=== PATIENT | male | born 1985 | race Caucasian/White ===

== ENCOUNTER → 2017-06-25 | Outpatient (CLI) | payer OTHER ==
--- NOTE | 2017-06-26 15:00 | ECHOCARDIOGRAM REPORT ---
*NOTICE TO RECEIVING [employer] This information is strictly Confidential and protected under [place] law. [place] law prohibits you from making any further disclosure of this information unless further disclosure is expressly permitted by the written consent of the person to whom it pertains or is authorized by law. A general authorization for the release of medical or other information is not sufficient for this purpose. Hospital accepts no responsibility if the information is made available to any other person, INCLUDING THE PATIENT. Interpretation Summary * Name: FARZANEH BARTLETT Study Date: 06/25/2017 01:41 PM BP: 156/82 mmHg * Patient Location: [facility] HR: 72 * : 1985 (M/d/yyyy) Gender: Male Height: 71 in * Age: 31 yrs Ethnicity: CA Weight: 175 lb * Ordering Physician: Bala Cabrera * Referring Physician: Bala Cabrera * Performed By: Marybel Ventura RCS * * Reason For Study: AORTIC INSUFFICIENCY * BSA: 2.0 m2 * -- Conclusions -- * 1. Normal LV size and wall thickness. * 2. Normal LV systolic function. LVEF 55-60%. No regional wall motion abnormalities. * 3. Normal RV size and function. * 4. Suspected bicuspid aortic valve with trace aortic rergurgitation. No . No aortic aneursym. * 5. Trace MR, TR. * 6. Normal estimated PA and RA pressures. * 7. No prior studies for comparison. Procedure Details * A complete two-dimensional transthoracic echocardiogram was performed (2D, M-mode, Doppler and color flow Doppler). * Patient refused Definity. Left Ventricle * The left ventricle is grossly normal size. * There is borderline concentric left ventricular hypertrophy. * Ejection Fraction = 55-60%. * No regional wall motion abnormalities noted. Right Ventricle * The right ventricle is grossly normal size. * The right ventricular systolic function is normal as assessed by tricuspid annular plane systolic excursion (TAPSE) (normal >1.5 cm). Atria * The left atrial size is normal. * Right atrial size is normal. * No ASD detected; PFO is not assessed. Mitral Valve * The mitral valve is grossly normal. * There is no mitral valve stenosis. * There is trace mitral regurgitation. Tricuspid Valve * The tricuspid valve is not well visualized, but is grossly normal. * There is no tricuspid stenosis. * There is trace tricuspid regurgitation. Aortic Valve * The aortic valve opens well. * A bicuspid aortic valve cannot be excluded. * No hemodynamically significant valvular aortic stenosis. * Trace aortic regurgitation. Pulmonic Valve * The pulmonary valve is inadequately visualized, but the Doppler data is adequate for interpretation. * Pulmonic stenosis is absent. * There is no significant pulmonary regurgitation. Great Vessels * The aortic root and proximal ascending aorta are normal sized. Pericardium/Pleural * There is no pericardial effusion. Great Vessels * There is no evidence of pulmonary hypertension. The PA systolic pressure is less than 36 mmHg. * Normal inferior vena cava size and collapsability with sniff indicates a normal right atrial pressure of 3 mmHg MMode 2D Measurements and Calculations IVSd 0.95 cm IVSs 1.3 cm LVIDd 4.8 cm LVIDs 3.6 cm LVPWd 1.2 cm LVPWs 1.3 cm IVS/LVPW 0.82 FS 26.1 % EDV(Teich) 108.8 ml ESV(Teich) 53.2 ml EF(Teich) 51.1 % EDV(cubed) 112.3 ml ESV(cubed) 45.3 ml EF(cubed) 59.6 % % IVS thick 41.6 % % LVPW thick 10.3 % LV mass(C)d 184.1 grams LV mass(C)dI 92.4 grams/m\S\2 LV mass(C)s 159.9 grams LV mass(C)sI 80.3 grams/m\S\2 SV(Teich) 55.6 ml SI(Teich) 27.9 ml/m\S\2 SV(cubed) 66.9 ml SI(cubed) 33.6 ml/m\S\2 Ao root diam 3.0 cm Ao root area 7.0 cm\S\2 ACS 2.3 cm LA dimension 3.0 cm LA/Ao 1.0 LVOT diam 2.4 cm LVOT area 4.4 cm\S\2 Doppler Measurements and Calculations MV E max stormy 143.4 cm/sec MV A max stormy 93.8 cm/sec MV E/A 1.5 MV P1/2t max stormy 154.2 cm/sec MV P1/2t 84.7 msec MVA(P1/2t) 2.6 cm\S\2 MV dec slope 533.1 cm/sec\S\2 MV dec time 0.22 sec Ao V2 max 138.9 cm/sec Ao max PG 7.7 mmHg Ao max PG (full) 3.8 mmHg MELLISSA(V,A) 3.1 cm\S\2 MELLISSA(V,D) 3.1 cm\S\2 AI max stormy 292.5 cm/sec AI max PG 34.5 mmHg AI dec slope 124.5 cm/sec\S\2 AI P1/2t 687.9 msec LV V1 max PG 3.9 mmHg LV V1 max 99.2 cm/sec PA V2 max 97.7 cm/sec PA max PG 3.8 mmHg TR max stormy 279.0 cm/sec
== END | disposition home or self-care (01) ==
LOC: C.CPL 13:34
PROVIDERS: ATTEND Internal Medicine Cardiovascular Disease
DX: Q23.1 Congenital insufficiency of aortic valve (principal); I36.1 Nonrheumatic tricuspid (valve) insufficiency

== ENCOUNTER 2017-10-14 10:55 | Emergency (ER) | payer OTHER ==
[~2017-10-14] VITALS: Ht 180.3 cm; Wt 77.2 kg
[2017-10-14 11:07] VITALS: TEMP 36.4; Ht 180.3 cm; Wt 77.2 kg
[2017-10-14] MEDS ORDERED: SODIUM CHLORIDE 0.9% 1000ML 2,000 ML IV STA (11:43)
[2017-10-14 11:53] LABS: BASO % 0.4 %; BASO ABS # 0.02 K/uL (0-0.2); EOS % 0.2 %; EOS ABS # 0.01 K/uL (0-0.5); HEMATOCRIT 48.1 % (42-52); HEMOGLOBIN 17.9 g/dL (14.0-18.0); IG# 0.01 K/uL (0.00-0.02); LYMPH % 15.9 %; LYMPH ABS # 0.76 K/uL (1.2-3.4); MEAN CELL VOLUME 89.7 fL (80-100); MEAN CORPUSCULAR HEMOGLOBIN 33.4 pg (25-34); MEAN CORPUSCULAR HGB CONC 37.2 g/dl (32-36); MEAN PLATELET VOLUME 9.6 fL (7.4-10.4); MONO % 24.8 %; MONO ABS # 1.19 K/uL (0.11-0.59); NEUT % 58.5 %; PLATELET COUNT 184 K/uL (130-400); RED CELL DISTRIBUTION WIDTH SD 38.8 fL (36.4-46.3); WHITE BLOOD COUNT 4.79 K/uL (4.8-10.8)
[2017-10-14 12:02] LABS: ALBUMIN 3.7 gm/dl (3.4-5.0); ALT/SGPT 70 U/L (12-78); BLOOD UREA NITROGEN 6 mg/dl (7-18); CALCIUM 8.4 mg/dl (8.5-10.1); CARBON DIOXIDE 29 mmol/L (21-32); CREATININE 0.97 mg/dl (0.60-1.40); GLUCOSE 96 mg/dl (70-99); POTASSIUM 3.3 mmol/L (3.5-5.1); SODIUM 133 mmol/L (136-145)
--- NOTE | 2017-10-14 12:03 | EMERGENCY ROOM VISIT NOTE ---
History Report prepared by [place]: Sanaz Magaña Under the Supervision of: Dr. Jonatan Cheatham M.D. First contact with patient: 11:36 Chief Complaint: DIZZY Stated Complaint: DIZZYNESS, VOMITING Nursing Triage Summary: pt ill all day yesterday, last pm became dizzy at top of stairs and fell down stairs approx 5-10 feet striking head pos loc pt no longer dizzy pt is cardiac pt of Dr Cabrera pt wants evaluated for fall pt no longer n/v/d History of Present Illness The patient is a 31 year old male who presents to the Emergency Room with complaints of an episode of a fall occurring INVESTIGATOR. The patient states that he has been feeling sick for the past 2-3 days and has mostly been laying in bed. He states that he spent the majority of the day yesterday in bed and did not eat or drink much. He got up around 1am to go downstairs to get a drink. He states that he was feeling dizzy when he stood up and this caused him to fall down the stairs. He hit his head on the railing. The patient is complaining of facial pain including pain around his nose and mouth. He states that his face feels "sore." He rates his pain as a 4/10 in severity. He did hit his head and thinks he may have lost consciousness for a few seconds. He denies any other injury from his fall. He denies any pain or injury to the extremities. He denies urinary symptoms or abdominal pain. He has not taken anything for his pain. Source of History: patient Onset: INVESTIGATOR Position: other (face) Symptom Intensity: 4/10 Quality: other (sore) Timing: other (episode) Associated Symptoms: + LOC, No abdominal pain, No urinary symptoms Note: Pt reports dizziness. Review of Systems See HPI for pertinent positives & negatives. A total of 10 systems reviewed and were otherwise negative. Past Medical & Surgical Medical Problems: (1) Congenital insufficiency of aortic valve (2) Nonrheumatic tricuspid (valve) insufficiency Family History No pertinent history stated. Social History Smoking Status: Never Smoker Alcohol Use: heavy Housing Status: lives alone Occupation Status: employed Current/Historical Medications No Active Prescriptions or Reported Meds Allergies Coded Allergies: No Known Allergies (Unverified , 10/14/17) Physical Exam Vital Signs Date Time Temp Pulse Resp B/P (MAP) Pulse Ox O2 Delivery O2 Flow Rate FiO2 10/14/17 14:45 92 16 112/74 95 10/14/17 12:32 96 10/14/17 12:31 98 16 121/81 96 Room Air 10/14/17 11:07 36.4 108 20 127/78 97 Room Air Physical Exam GENERAL: Patient is well appearing and in minimal distress. EYES: No scleral icterus, unremarkable pupils. ENT: Mucous membranes moist, no nasal congestion. Older abrasion of left upper lip and left lower lip. Left nose with bilateral bruising below the eyes and across the bridge of the nose. Tender to palpation over the bridge of the nose. NECK: No masses appreciated, no meningismus, trachea is midline. RESPIRATORY: No dyspnea. Clear to auscultation and equal bilaterally. No wheeze , no rhonchi. CARDIOVASCULAR: Regular rate and rhythm. No murmurs, rubs, gallops appreciated. GASTROINTESTINAL: Abdomen soft, nontender, no peritonitis. Bowel sounds positive. No masses appreciated. BACK: No midline tenderness, no CVA tenderness EXTREMITIES: Normal motion all extremities, no cyanosis, no edema. Old bruising of the right thigh. NEUROLOGIC: Alert and oriented, no acute motor or sensory deficits, no focal weakness, cranial nerves grossly intact. SKIN: No rash, no jaundice, no diaphoresis. Medical Decision & Procedures ER Provider Diagnostic Interpretation: Radiology results and stated below per my review and radiologist interpretation: FACIAL BONES-MXILLOFAC WITHOUT CLINICAL HISTORY: 31 years-old Male presenting with syncope, facial injuries. TECHNIQUE: Multidetector CT of the face was performed without the use of intravenous contrast. IV contrast: None. A dose lowering technique was used consistent with the principles of ALARA (as low as reasonably achievable). COMPARISON: None. CT DOSE (mGy.cm): The estimated cumulative dose is 833.24 mGy.cm. FINDINGS: Search Marketing Specialist topogram: Unremarkable. Mild mucosal thickening in ethmoid air cells and the bilateral maxillary sinuses. Rightward deviation of the bony nasal septum, which may demonstrate an old fracture deformity (series 5 image 318). No acute fracture. Temporal mandibular joints and mandible intact. Teeth intact. Skull base intact. Bilateral soft tissue filling defects in the external auditory canals likely cerumen. Upper cervical spine normal. Mild infiltration of the soft tissues of the nose. No other evidence of soft tissue injury. Limited intracranial evaluation within normal limits. Please see separately dictated CT of the head. IMPRESSION: 1. Minimal superficial soft tissue contusion of the nasal region. 2. No acute osseous injury of the face. 3. Findings suggest old fracture of the bony nasal septum. Electronically signed by: Julio Abbott M.D. 10/14/2017 12:31 PM Dictated Date/Time: 10/14/2017 12:28 PM HEAD WITHOUT CONTRAST (CT) CT DOSE: HISTORY: Trauma. Mental status change. syncope head injury TECHNIQUE: Multiaxial CT images of the head were performed without the use of intravenous contrast. A dose lowering technique was utilized adhering to the principles of ALARA. Comparison: None. Findings: The paranasal sinuses and mastoid air cells are clear. The calvarium and skull base are intact. The ventricles and sulci are within normal limits. There is no mass, hematoma, midline shift, or acute infarct. Impression: No acute intracranial abnormality. The above report was generated using voice recognition software. It may contain grammatical, syntax or spelling errors. Electronically signed by: Jose Luis Abdullahi M.D. 10/14/2017 12:26 PM Dictated Date/Time: 10/14/2017 12:24 PM Laboratory Results 10/14/17 11:25 Red Blood Count 5.36, Mean Corpuscular Volume 89.7, Mean Corpuscular Hemoglobin 33.4, Mean Corpuscular Hemoglobin Concent 37.2, Mean Platelet Volume 9.6, Neutrophils (%) (Auto) 58.5, Lymphocytes (%) (Auto) 15.9, Monocytes (%) (Auto) 24.8, Eosinophils (%) (Auto) 0.2, Basophils (%) (Auto) 0.4, Neutrophils # (Auto ) 2.80, Lymphocytes # (Auto) 0.76, Monocytes # (Auto) 1.19, Eosinophils # (Auto ) 0.01, Basophils # (Auto) 0.02 10/14/17 11:25 Test 10/14/17 11:20 10/14/17 11:25 Urine Color DK YELLOW Urine Appearance CLEAR (CLEAR) Urine pH 5.5 (4.5-7.5) Urine Specific [place] 1.017 (1.000-1.030) Urine Protein NEG (NEG) Urine Glucose (UA) NEG (NEG) Urine Ketones NEG (NEG) Urine Occult Blood NEG (NEG) Urine Nitrite NEG (NEG) Urine Bilirubin NEG (NEG) Urine Urobilinogen NEG (NEG) Urine Leukocyte Esterase NEG (NEG) Urine WBC (Auto) 1-5 /hpf (0-5) Urine RBC (Auto) 0-4 /hpf (0-4) Urine Hyaline Casts (Auto) 1-5 /lpf (0-5) Urine Epithelial Cells (Auto) 5-10 /lpf (0-5) Urine Bacteria (Auto) NEG (NEG) White Blood Count 4.79 K/uL (4.8-10.8) Red Blood Count 5.36 M/uL (4.7-6.1) Hemoglobin 17.9 g/dL (14.0-18.0) Hematocrit 48.1 % (42-52) Mean Corpuscular Volume 89.7 fL (80-100) Mean Corpuscular Hemoglobin 33.4 pg (25-34) Mean Corpuscular Hemoglobin Concent 37.2 g/dl (32-36) Platelet Count 184 K/uL (130-400) Mean Platelet Volume 9.6 fL (7.4-10.4) Neutrophils (%) (Auto) 58.5 % Lymphocytes (%) (Auto) 15.9 % Monocytes (%) (Auto) 24.8 % Eosinophils (%) (Auto) 0.2 % Basophils (%) (Auto) 0.4 % Neutrophils # (Auto) 2.80 K/uL (1.4-6.5) Lymphocytes # (Auto) 0.76 K/uL (1.2-3.4) Monocytes # (Auto) 1.19 K/uL (0.11-0.59) Eosinophils # (Auto) 0.01 K/uL (0-0.5) Basophils # (Auto) 0.02 K/uL (0-0.2) RDW Standard Deviation 38.8 fL (36.4-46.3) RDW Coefficient of Variation 12.0 % (11.5-14.5) Immature Granulocyte % (Auto) 0.2 % Immature Granulocyte # (Auto) 0.01 K/uL (0.00-0.02) Anion Gap 7.0 mmol/L (3-11) Est Creatinine Clear Calc Drug Dose 119.6 ml/min Estimated GFR () 121.8 Estimated GFR (Non- 105.1 BUN/Creatinine Ratio 5.9 (10-20) Calcium Level 8.4 mg/dl (8.5-10.1) Total Bilirubin 0.7 mg/dl (0.2-1) Aspartate Amino Transf (AST/SGOT) 121 U/L (15-37) Alanine Aminotransferase (ALT/SGPT) 70 U/L (12-78) Alkaline Phosphatase 138 U/L (45-117) Total Creatine Kinase 352 U/L (39-308) Troponin I < 0.015 ng/ml (0-0.045) Total Protein 8.1 gm/dl (6.4-8.2) Albumin 3.7 gm/dl (3.4-5.0) Globulin 4.4 gm/dl (2.5-4.0) Albumin/Globulin Ratio 0.8 (0.9-2) Laboratory results as reviewed by me. Medications Administered Medications (Trade) Dose Ordered Sig/Adeline Route Start Time Stop Time Status Last Admin Dose Admin Sodium Chloride 2,000 ml @ 999 mls/hr Q2H1M STAT IV 10/14/17 11:43 10/14/17 13:43 DC 10/14/17 12:12 999 MLS/HR ECG Per My Interpretation Indication: syncope Rate (beats per minute): 91 Rhythm: normal sinus Findings: no acute ischemic change, no ectopy, other (QTC 450; WA 120) ED Course 1136: The patient was evaluated in room A10. A complete history and physical exam was performed. 1143: NSS 2000 ml @ 999 mls/hr IV 1327: The patient's mother pulled me aside and informed me that the patient is a heavy alcohol drinker. She knows that he was drinking heavily 3 days ago but is unsure if he drank alcohol last night. I reassessed the patient and he is doing well and currently drinking a soda. 1346: I reassessed the patient at this time. He is feeling better and resting comfortably. He again denies drinking alcohol last night. I discussed the results and treatment plan with the patient. I answered all pertaining questions that he had. He expressed understanding and verbalized agreement. The patient will be discharged home. Medical Decision Differential: Vaso-vagal, Intracerebral Event, Neurologic, Infectious, Volume Deficiency, Hypoglycemia, Electrolyte Abnormality, Cardiac Source, Toxicologic, amongst other pathologies entertained. 31 yr old male who notes syncopal episode yesterday after getting up quickly following vomiting throughout the day and poor oral intake for a few days. Abrasions left face with moderate bruising bilateral below eyes. With syncope and bruising felt imaging necessary which was negative. He is a bit evasive on answering questions but denies excessive Etoh usage. Mother however towards DC notes concern overdose alcohol. I re-questioned patient he still denies he has an issue. Not malnutrition and mother notes he eats well thus will hold on thiamine for now given he is adamant not frequent etoh use. He has no further vomiting, is looking better and is in no distress. Syncope likely was hypovolemic in nature. Discussed we are always here if he feels he needs help. Reviewed mild ast elevation which could be etoh vs just vomiting though I made clear to him my concerns. Head Trauma GCS Score: 15 Medication Reconcilliation Current Medication List: was personally reviewed by me Blood Pressure Screening Patient's blood pressure: Normal blood pressure Impression Primary Impression: Vomiting Additional Impressions: Dehydration Syncope Head injury, closed Elevated AST (SGOT) Abrasion of face Nasal contusion Scribe Attestation The scribe's documentation has been prepared under my direction and personally reviewed by me in its entirety. I confirm that the note above accurately reflects all work, treatment, procedures, and medical decision making performed by me. Departure Information Dispostion Home / Self-Care Prescriptions No Active Prescriptions or Reported Meds Referrals Rai Hager D.O. (PCP) Forms HOME CARE DOCUMENTATION FORM, IMPORTANT VISIT INFORMATION Patient Instructions My [facility] Additional Instructions Please follow up with your Primary Care Provider for further evaluation and discuss having repeat lab testing. Return if worsening vomiting, abdominal pain, fevers, chest pain, further passing out or other concerns. Keep well hydrated. If you drink regularly discuss this with your family and loved ones. Given your labs you should avoid all alcohol until cleared by your primary provider. Problem Qualifiers
[2017-10-14 12:07] LABS: ALKALINE PHOSPHATASE 138 U/L (45-117); AST/SGOT 121 U/L (15-37); TOTAL PROTEIN 8.1 gm/dl (6.4-8.2)
--- NOTE | 2017-10-14 12:27 | DIAGNOSTIC IMAGING REPORT ---
HEAD WITHOUT CONTRAST (CT) CT DOSE: HISTORY: Trauma. Mental status change. syncope head injury TECHNIQUE: Multiaxial CT images of the head were performed without the use of intravenous contrast. A dose lowering technique was utilized adhering to the principles of ALARA. Comparison: None. Findings: The paranasal sinuses and mastoid air cells are clear. The calvarium and skull base are intact. The ventricles and sulci are within normal limits. There is no mass, hematoma, midline shift, or acute infarct. Impression: No acute intracranial abnormality. The above report was generated using voice recognition software. It may contain grammatical, syntax or spelling errors. Electronically signed by: Jose Luis Abdullahi M.D. 10/14/2017 12:26 PM Dictated Date/Time: 10/14/2017 12:24 PM
--- NOTE | 2017-10-14 12:32 | DIAGNOSTIC IMAGING REPORT ---
FACIAL BONES-MXILLOFAC WITHOUT CLINICAL HISTORY: 31 years-old Male presenting with syncope, facial injuries. TECHNIQUE: Multidetector CT of the face was performed without the use of intravenous contrast. IV contrast: None. A dose lowering technique was used consistent with the principles of ALARA (as low as reasonably achievable). COMPARISON: None. CT DOSE (mGy.cm): The estimated cumulative dose is 833.24 mGy.cm. FINDINGS: Knowledge Analyst topogram: Unremarkable. Mild mucosal thickening in ethmoid air cells and the bilateral maxillary sinuses. Rightward deviation of the bony nasal septum, which may demonstrate an old fracture deformity (series 5 image 318). No acute fracture. Temporal mandibular joints and mandible intact. Teeth intact. Skull base intact. Bilateral soft tissue filling defects in the external auditory canals likely cerumen. Upper cervical spine normal. Mild infiltration of the soft tissues of the nose. No other evidence of soft tissue injury. Limited intracranial evaluation within normal limits. Please see separately dictated CT of the head. IMPRESSION: 1. Minimal superficial soft tissue contusion of the nasal region. 2. No acute osseous injury of the face. 3. Findings suggest old fracture of the bony nasal septum. Electronically signed by: Julio Abbott M.D. 10/14/2017 12:31 PM Dictated Date/Time: 10/14/2017 12:28 PM
[2017-10-14 14:45] VITALS: BP 112/74; PULSE 92; O2SAT 95
== END 2017-10-14 14:45 | disposition home or self-care (01) ==
LOC: C.EDB 10:57 → C.EDA 14:45
DX: E86.0 Dehydration (principal); R11.10 Vomiting, unspecified; S09.90XA Unspecified injury of head, initial encounter; S00.81XA Abrasion of other part of head, initial encounter; S00.33XA Contusion of nose, initial encounter; R55 Syncope and collapse; W10.9XXA Fall (on) (from) unspecified stairs and steps, initial encounter

== ENCOUNTER 2018-09-15 09:07 | Inpatient (IN) ==
[2018-09-15] MEDS ORDERED: SODIUM CHLORIDE 0.9% 1000ML 1,000 ML IV ONE ×2 (09:48→11:04)
[2018-09-15 10:00] LABS: Basophils # (auto) 0.03 K/uL (0-0.2); Basophils % (auto) 0.2 %; Eosinophils # (auto) 0.09 K/uL (0-0.5); Eosinophils % (auto) 0.5 %; Hematocrit (blood only) 37.1 % (42-52); Hemoglobin 13.3 g/dL (14.0-18.0); Immature Granulocytes # (auto) 0.03 K/uL (0.00-0.02); Immature Granulocytes % (auto) 0.2 %; Lymphocytes % (auto) 4.6 %; Mean Corpuscular Hgb Conc 35.8 g/dL (32-36); Mean Corpuscular Volume 95.4 fL (80-100); Mean Platelet Volume 9.7 fL (7.4-10.4); Monocytes # (auto) 2.25 K/uL (0.11-0.59); Neutrophils % (auto) 81.5 %; Platelet Count 240 K/uL (130-400); RDW Coefficient of Variation 14.2 % (11.5-14.5); RDW Standard Deviation 48.6 fL (36.4-46.3); Red Blood Count 3.89 M/uL (4.7-6.1)
[2018-09-15 10:11] LABS: INR 2.5 (0.9-1.1)
[2018-09-15 10:19] LABS: Alanine Aminotransferase 142 U/L (12-78); Albumin Level 2.4 gm/dl (3.4-5.0); Alkaline Phosphatase 238 U/L (45-117); Aspartate Aminotransferase 376 U/L (15-37); BUN Creatinine Ratio 5.7 (10-20); Bilirubin Direct 11.3 mg/dl (0-0.2); Blood Urea Nitrogen 8 mg/dl (7-18); Calcium 7.8 mg/dl (8.5-10.1); Carbon Dioxide 29 mmol/L (21-32); Chloride 85 mmol/L (98-107); Est GFR (African American) 81.1; Glucose 87 mg/dl (70-99); Magnesium 1.6 mg/dl (1.8-2.4); Potassium 3.5 mmol/L (3.5-5.1); Sodium 123 mmol/L (136-145)
[2018-09-15 10:45] LABS: Hepatitis B Surface Antigen Neg (Neg)
[2018-09-15 10:48] LABS: Appearance Urine Cloudy (Clear); Color Urine Brown
[2018-09-15 10:50] LABS: Specific Gravity Urine 1.036 (1.000-1.060)
[2018-09-15 10:52] LABS: Bacteria Urine 2+ (Negative); Hyaline Casts Urine >30 /lpf (0-5); Mucus Urine Present (None Prsent)
[2018-09-15 10:55] LABS: RBC Urine 0-4 /hpf (0-4); WBC Urine >30 /hpf (0-5)
[2018-09-15] MEDS ORDERED: OPTIRAY 320 125ml IV PRN (11:03)
[2018-09-15] MEDS ORDERED: cefTRIAXone SODIUM 1,000 MG/50 ML BAG IV STA (11:04)
[2018-09-15 11:08] LABS: Hepatitis C IgG 13Yrs+Old_Rflx Neg (Neg)
--- NOTE | 2018-09-15 11:20 | CT Scan Report ---
CT angio chest PE protocol CT DOSE: 1313.69 mGy.cm HISTORY: 32 years-old Male with PE. Acute shortness of breath with generalized abdominal pain and j aundice TECHNIQUE: Multiple CTA images of the chest were obtained after the intravenous administration of 215 ml Optiray 320. Coronal and sagittal MIPS were obtained from the axial data set and were submitted for review. All measurements were obtained according to NASCET criteria. A dose lowering technique w as utilized adhering to the principles of ALARA. Initial scan demonstrated suboptimal contrast bolus within the pulmonary arterial tree. The study was then repeated. COMPARISON: None. FINDINGS: CTA: Mild multichamber cardiac enlargement without pericardial effusion. Thoracic aorta demonstrates no an eurysm or dissection. Patency of the imaged great vessels. The pulmonary arterial tree is opacified t o the level of the lobar branches. The segmental and subsegmental branches are not well opacified. No focal filling defects identified to suggest pulmonary thromboembolic disease. Study is degraded by r espiratory motion artifact. CT CHEST: Mildly heterogeneous appearance of the thyroid. No adenopathy by CT size criteria. There is no pneumo thorax or pleural effusion. Mild dependent subsegmental bibasilar atelectasis. Central airways appear patent. Severe hepatic steatosis. Upper abdominal ascites noted. Small sliding-type hiatal hernia. Mild gener alized body wall edema. Bones appear to be intact. Remote appearing deformity about the posterior lef t fourth rib. No suspicious lytic or blastic bony lesions. IMPRESSION: 1. No acute intrathoracic abnormality. 2. Suboptimal evaluation of the pulmonary arterial tree as above without evidence of central pulmonar y thromboembolic disease. 3. No adenopathy or airspace consolidation typical for pneumonia. 4. Severe hepatic steatosis with upper abdominal ascites. 5. Small sliding-type hiatal hernia. The above report was generated using voice recognition software. It may contain grammatical, syntax o r spelling errors. Electronically signed by: Gerson Chowdary M.D. 09/15/2018 11:18 AM
--- NOTE | 2018-09-15 11:20 | CT Scan Report ---
CT abd pelvis IV con only CLINICAL HISTORY: 32 years-old Male presenting with abd pain, jaundice, scrotal swelling. TECHNIQUE: Multidetector CT of the abdomen and pelvis was performed after the administration of intra venous contrast. IV contrast: 120 mL of Optiray 320. One or more dose lowering techniques were used c onsistent with the principles of ALARA (as low as reasonably achievable), including automatic exposur e control, mA or kV adjustment to individual patient size, and/or use of iterative reconstruction. COMPARISON: None. CT DOSE (mGy.cm): The estimated cumulative dose is unavailable. FINDINGS: Pain Management Nurse topogram: Unremarkable. Lung bases: Mildly enlarged heart size. No pericardial or pleural effusion. Bandlike opacities in the lung bases greater on the right, likely atelectasis. Pulmonary arteries are enlarged relative to adj acent bronchi. Liver: Normal morphology. Density consistent with severe hepatic steatosis. No focal lesion. Patent h epatic vasculature. Biliary: No intrahepatic or extrahepatic biliary ductal dilatation. Normal gallbladder. Pancreas: Normal. Spleen: Normal. Adrenal glands: Normal. Kidneys and ureters: Normal. No hydronephrosis. Bladder: Incompletely evaluated secondary to underdistention. Pelvic organs: Prostate and seminal vesicles normal. Bowel: The appendix is not visualized. No bowel obstruction. Mild diffuse wall thickening of the smal l and large bowel. Peritoneal cavity: Large volume simple appearing ascites area and no layering hyperdensity within the ascites. No free intraperitoneal gas. Lymph nodes: No enlarged lymph nodes in the abdomen or pelvis. Vasculature: Aorta and IVC patent and normal in caliber. Mesenteric varices noted. Abdominal wall: Recanalization of the para umbilical vein with prominent collateral veins in the ante rior abdominal wall. Anasarca. Fat and small bowel containing periumbilical hernia. Ascitic fluid als o tracks into the bilateral inguinal canals greater on the left. Musculoskeletal: Normal. IMPRESSION: 1. Volume overload with large volume ascites, anasarca, and pulmonary vascular congestion. 2. Severe hepatic steatosis. 3. Portal hypertension. 4. Bibasilar atelectasis greater on the right. Electronically signed by: Julio Abbott M.D. 09/15/2018 11:19 AM
--- NOTE | 2018-09-15 12:34 | Ultrasound Report ---
US scrotum/testicle CLINICAL HISTORY: 32 years-old Male presenting with scrotal edema, testicular pain. TECHNIQUE: Real-time grayscale and color and spectral Doppler ultrasound imaging of the scrotum was p erformed. COMPARISON: None. FINDINGS: Right testis: Normal echogenicity and echotexture. Testis measures 4.1 x 2.6 x 2.6 cm. Normal color D oppler flow and arterial and venous waveforms in the testicular parenchyma. Subcentimeter epididymal head cyst(s), either epididymal cyst or spermatocele. No hydrocele. No varicocele. Left testis: Normal echogenicity and echotexture. Testis measures 4.0 x 2.5 x 2 point cm. Normal colo r Doppler flow and arterial and venous waveforms in the testicular parenchyma. Epididymal head normal . Large hydrocele present (calculated volume 80 mL). No varicocele. Symmetric perfusion of the testes. Other: Marked scrotal wall edema diffusely. No focal fluid collection to suggest abscess. IMPRESSION: 1. No evidence of testicular torsion. 2. Nonspecific marked scrotal wall edema. 3. Large left hydrocele. Electronically signed by: Julio Abbott M.D. 09/15/2018 12:33 PM
--- NOTE | 2018-09-15 13:31 | History & Physical Report ---
Date of Service September 15, 2018 Assessment & Plan (1) Acute hepatitis: This is a 32 year old male who has a significant pmh of congenital coarctation of aorta s/p repair and repair of R inguinal hernia who presents to [facility] ED secondary to jaundice and scrotal swelling x 7-10 days. In ED patient was noted to have significant jaundice, ascites, anasarca. LFTs were as follows AST 376, ALT 142, alk phos 238, T bili 17 Lactic acid 4.1 Per current CMS guidelines patient met SIRS criteria with tachycardia, elevated wbc, tachypnea Lactate was 4.1, repeat 4 hrs later was 3.1 s/p IVF x 2 L He received broad spectrum antibiotic with 1g Rocephin *records reviewed from ER visit from 09/2017 s/p fall. In this note Dr. Pineda mentions history of heavy ETOH use that was reported by mother, but denied by patient. Also at that time he had elevation in his AST 121 and Alk Phos 138, Sodium 133. -admit to med/surg telemetry -consult GI, spoke with RODERICK Dolan -Hepatitis work up per GI -Diagnostic and therapeutic paracentesis send fluid for culture and analysis -will continue rocephin, but increase to 2g daily with extra 1 g this evening until SBP, UTI, or bacteremia is ruled out -being folic acid, thiamine supplementation -follow LFTS, PT/INR, Lactic acid (2) Anasarca: (3) Hyperbilirubinemia: (4) Leukocytosis: -plan as above, he is afebrile -no known infectious source at this time however will continue to cover with rocephin for /GI as possible etiology -await urine, blood and peritoneal fluid culture -follow cbc (5) Hyponatremia: -likely in setting of large volume ascites, chronic -s/p 2L IVF -check serum/urine osm, urine na -follow bmp (6) Hypomagnesemia: -replace with 2g mag sulfate -repeat mag in a.m. (7) Elevated INR (international normalized ratio): -INR 2.5, likely in setting of liver disease -10mg mephyton given per GI -repeat INR (8) Lactic acidosis: -Lactic acid 4.1, repeat was 3 at 13:30 -likely in setting of hepatic failure but infection not entirely ruled out -await urine, blood, peritoneal cultures -continue IV antibiotic -follow lactate level -will hold on further IVF given significant volume overload (9) Prolonged Q-T interval on ECG: -avoid QT prolonging medications (10) DVT prophylaxis: -SCDS Disposition: to be determined Follow up: Pt will need established with PCP upon discharge Patient was seen in collaboration with Dr. Prasad, please see addendum Starting 09/16/28 patient will be followed by Dr. Orantes History of Present Illness Chief Complaint: Jaundice and scrotal edema x 7-10 days. Primary Care Provider: NO PCP This is a 32 year old male who has a significant pmh of congenital coarctation of aorta s/p repair and repair of R inguinal hernia who presents to [facility] ED secondary to jaundice and scrotal swelling x 7-10 days. Patient states approx 10 days ago he noted increased swelling to scrotum, reminded him of when he had a hernia. Occassional testicular pain with swelling but no noted mass or lumps. Occasional abdominal pain, last was 1 week ago, comes and goes, diffuse , last seconds to minutes. Yesterday he was at work when co worker told him he was yellow and he should be evaluated. He has not had any change in weight, but has noticed increased abdominal distension. Denies recent f/c/s, dizziness, lightheaded, chest pain, sob, hemoptysis, cough, n/v/d, dysuria, hematuria, increased urgency/freq, melena. He denies IVDA and significant ETOH use. Drinks 2-3 x per week and drinks 3-4 reds apple dariel. No FH of liver disease or malignancy. No recent endemic travel. Allergies Allergy/AdvReac Type Severity Reaction Status Date / Time No Known Allergies Allergy Unverified 09/15/18 10:28 Home Medications Home Medications Medication Instructions Recorded Confirmed Type No Known Home Medications 09/15/18 09/15/18 History Past Med/Surg History Medical History Congenital insufficiency of aortic valve (Chronic) Nonrheumatic tricuspid (valve) insufficiency (Chronic) Surgical History History of repair of coarctation of aorta History of inguinal hernia repair Family History Father HTN (hypertension) Mother No significant past medical history Social History marital status: Single Current Living Situation: Alone current occupational status: employed Feels Safe at Home: Yes Smoking Status: Never smoker Hx Alcohol Use: Yes (3 beers two to three times per week) Alcohol Intake Frequency: a few times a week Alcohol Intake Frequency Comment: 2-3 x a week ( drinks 3-4 reds apple dariel) Hx Substance Use: No Beliefs That Will Affect Care: None Preferred Language: Azeri Communication Ability: Effective Review of Systems All systems reviewed & are unremarkable except as noted in HPI & below Physical Exam 2 Vital Signs (Past 24 Hours): Last Vital Signs Temp 37.2 C 09/15/18 09:09 Pulse 113 H 09/15/18 13:24 Resp 31 H 09/15/18 13:24 BP 124/79 09/15/18 13:24 Pulse Ox 94 09/15/18 13:24 Physical Exam: Gen: Tall, M, lying in bed, NAD, pleasant, conversing easily, flat affect Head: Normocephalic, Atraumatic Eyes: Sclera icteric, no conjunctival injection, PERRLA, EOMI ENT: Gross hearing intact, normal pharynx, mucous membranes dry with beefy red tongue Neck: supple, no adenopathy, +hepatojugular reflux, no bruit, Resp: Clear to auscultation b/l, no wheeze, rales, rhonchi. Normal insp/exp effort, no accessory muscle use CV: Tachycardic rate, regular rhythm, 1/6 ANSON noted RUSB, no rub, gallop, or ectopy Abd: +BS x 4, +protuberant abdomen, +distended with ascities, fluid wave, caput medusa, +periumbilical hernia noted, firm, nontender Musculoskeletal: moves extremities active rom x 4, strength intact, good floor person strength Extremities: B/L +1 pedal and pre tibial edema bilaterally, negative homans Skin: warm, moist, + petechial rash on b/l lower ext, negative turgor, cap refill < 2sec Neuro: Alert and oriented x 3, speech normal, good mood/affect, cran nerve 2-12 intact grossly : + scrotal edema, b/l hydrocele, no mass noted Results & Data Laboratory Results Short CBC 09/15/18 09/15/18 Range/Units 09:35 09:35 WBC 17.30 H (4.8-10.8) K/uL Hgb 13.3 L (14.0-18.0) g/dL Hct 37.1 L (42-52) % Plt Count 240 (130-400) K/uL Sodium 123 L (136-145) mmol/L BMP 09/15/18 09:35 Sodium 123 L Potassium 3.5 Chloride 85 L Carbon Dioxide 29 BUN 8 Creatinine 1.35 Glucose 87 Calcium 7.8 L Cardiac Enzymes 09/15/18 Range/Units 09:30 Troponin I < 0.015 (0-0.045) ng/ml Liver Function 09/15/18 Range/Units 09:35 Total Bilirubin 17.0 H (0.2-1) mg/dl Direct Bilirubin 11.3 H (0-0.2) mg/dl AST 376 H (15-37) U/L ALT 142 H (12-78) U/L Alkaline Phosphatase 238 H (45-117) U/L Albumin 2.4 L (3.4-5.0) gm/dl Urine 09/15/18 Range/Units 09:35 Urine Color Brown Urine Appearance Cloudy H (Clear) Urine pH Not Reportable Ur Specific [place] 1.036 (1.000-1.060) Urine Protein (Negative) Urine Glucose (UA) (Negative) Diagnostic Findings Scrotum U/S: IMPRESSION: 1. No evidence of testicular torsion. 2. Nonspecific marked scrotal wall edema. 3. Large left hydrocele. Chest CTA: IMPRESSION: 1. No acute intrathoracic abnormality. 2. Suboptimal evaluation of the pulmonary arterial tree as above without evidence of central pulmonary thromboembolic disease. 3. No adenopathy or airspace consolidation typical for pneumonia. 4. Severe hepatic steatosis with upper abdominal ascites. 5. Small sliding-type hiatal hernia. Abd/Pelvis CT: IMPRESSION: 1. Volume overload with large volume ascites, anasarca, and pulmonary vascular congestion. 2. Severe hepatic steatosis. 3. Portal hypertension. 4. Bibasilar atelectasis greater on the right. ECG Rate (beats per minute): 105 Rhythm: sinus tachycardia Findings: + T-wave inversion (anterior leads) and + prolonged QT (510ms) Code Status & VTE Plan Code Status Full Code VTE Prophylaxis Plan VTE Prophylaxis will be ordered: Yes Reason for no VTE drug order: Contraindicated Supervising Physician Co-Signing Physician Notes Patient is 32 yr male who presented with worsening jaundice, abdominal, B/L Leg and scrotal swelling since 10 days duration. He admits to drinking alcohol 2-3 times in a week. Denies any abdominal pain, fever, IV drug use, Possible of STDs. Last Alcohol drink was yesterday. On exam he is Icteric, moderately built , No distress, oriented, Lungs CTA, Abd distended, +Fluid wave, non tender, B/L LE edema, Petechiae, Faint murmur, Sinus Tachycardia. Labs showed increased WBC , elevated Coags and LFTs, Hyponatremic, hypochloremic, lactic acidosis, hypomagnesemia, UA suggestive of UTI. Imaging studies suggestive of severe hepatic steatosis, ascites, small hiatal hernia, anasarca, pulmonary vascular congestion and findings suggestive of portal HTN. Patient is thought to have Possible Acute Alocholic Hepatitis, R/O infectious Causes, SBP. S/P paracentesis , results pending. Volume overload status--Anasarca, Hypontaremia, Hypochloremia and Hypomagnesemia. Started on Ceftriaxone, Prednisone and Albumin. May need diuretics if respiratory status worsens. Replace magnesium. Lactic acidosis likely due to hepatic failure or possible sepsis from UTI/SBP. Supplement thiamine, folic acid, Monitor for alcohol withdrawal. Consider starting neurotin protocol if noticed withdrawal symptoms. GI Input appreciated. EKG showed T wave inversiion in anterior leads. Initial Troponin negative, Denies chest pain. Trend Troponin, repeat EKG in AM. I personally reviewed the record. Patient is interviewed and examined at bedside. Patient's care is coordinated with Salma Knight PA-C. Please refer to the documentation above for details of patient's presentation and for discussion of other issues. _ (1) Leukocytosis Leukocytosis type: unspecified Qualified Code(s): D72.829 - Elevated white blood cell count, unspecified
[2018-09-15] MEDS ORDERED: MAGNESIUM SULFATE 1GM / D5W BAG IV ONE (13:58)
[2018-09-15] MEDS ORDERED: PHYTONADIONE 10 MG in SODIUM CHLORIDE 0.9% 50 ML IV ONE (14:00)
[2018-09-15] MEDS ORDERED: ALBUMIN HUMAN 25% 12.5 GM/50 ML VIAL IV ONE (14:08)
[2018-09-15 14:14] LABS: Ferritin 1652.2 ng/ml (8-388)
--- NOTE | 2018-09-15 14:40 | Gastrointestinal Consultation ---
Date of Consultation September 15, 2018 Assessment & Plan (1) Jaundice: (2) Ascites: (3) Edema: (4) Elevated LFTs: Pt is a 32 y/o male presented w jaundice, ascites, scrotal and leg edema. Noted to have elevated LFTs and CT evidence of severe hepatic steatosis, meseteric varices, pulmonary hypertension and vascular congestion. Denies hx of autoimmune liver disease in the family, no risk factor for viral hepatitis. Does admit to ETOH use 6-7 beers, 2-3 a week. Suspect alcoholic hepatitis. MELD 35, Maddrey Discriminant Score 72 - Monitor PT/INR, Cr, LFTs daily - Obtain serologies to r/o autoimmune, hereditary liver diseases, acute viral hepatitis - U/S paracentesis w cell ct, fluid albumin, fluid protein, culture. Albumin 25 % 50g IV. He has been started on rocephin epirically; can continue if tap cannot be done today. - Vit K 10mg IV x1 dose - Prednisolone 40mg PO for suspected alcoholic hepatitis. - Defer diuretics for now given electrolyte derrangement and increasing Cr from baseline. - Fluid restriction 2L a day, 2g Na diet - ETOH cessation; avoid hepatotoxic meds - Electrolyte correction per primary team. - Will follow along closely Attg add: I interviewed and examined pt, reviewed chart and labs, agree with plans as above. Pt reports 1 week h/o increased pedal edema, increased abd girth, scrotal edema; he reports one day h/o jaundice. He denies abd pain, fever, n/v, bleeding, confusion. He denies risk fx viral hep; he does not use any meds/herbals/supplements. He does report regular alcohol intake- he initially reportes 3-4 beers 2-3 x a week, and then stated that he drank 6-7 beers 2-3 x a week a few moments later. He denies APAP use. On exam, he is withdrawn and anxious but comfortable and completely lucid. He is markedly jaundiced. He has marked hepatomegaly, abd distention with fluid wave, prom veins on abd, no tremor or asterixis. Labs show increased creat and WBC, marked jaundice, increased INR. Imaging shows hepatic steatosis. Likely alcoholic liver disease, ddx includes AIH or Ray's. He has high DF / MELD, vol overload, and increased creat. Will check serologies for AIH, viral hep, Ray's; begin prednisolone and follow labs; give albumin and follow creat. History of Present Illness Reason for Consultation: Jaundice, Ascites. Requesting Physician: Dr. Kai Prasad Attending Physician: Dr. Eduardo Bullock History of Present Illness Pt is a 32 y/o male with hx of coarctation of aorta during infancy s/p repair, hx of inguinal hernia s/p repair who presented to ED w c/o scrotal edema and jaundice. He's also noticed his abdomen and legs have been swelling for about 1 week. Denies any fever, chills, recent illness. No CP, SOB. No abd pain, bowel habit changes or rectal bleeding. Upon evaluation noted to have elevated WBC 17K , mild anemia, INR 2.5. Several electrolyte derangements including hyponatremia , hypocalcemia, hypomagnesemia. LFTs are also up: Tbili 17, AST 376, ALT 146, AP 238. Lipase 173. CT Abd/pelvis w contrast showed signs of severe hepatic steatosis, large volume ascites, anasarca and pulmonary congestive, pulmonary HTN. Hepatic vasculatures patent, biliary dilation, no gallbladder disease. Pt denies any current home med or herbal supplements, APAP uses. Denies hx of tobacco uses. ETOH intake about 6-7 beers, 2-3 nights a week, previously more frequent over a year ago. Denies illicit drugs. Denies tattoos, piercing, family hx of autoimmune diseases. An uncle had pancreatic ca at age 50 yrs old. He works in [employer]. Allergies Allergy/AdvReac Type Severity Reaction Status Date / Time No Known Allergies Allergy Unverified 09/15/18 10:28 Home Medications Home Medications Medication Instructions Recorded Confirmed Type No Known Home Medications 09/15/18 09/15/18 History Patient History Medical History Congenital insufficiency of aortic valve (Chronic) Nonrheumatic tricuspid (valve) insufficiency (Chronic) Surgical History History of repair of coarctation of aorta History of inguinal hernia repair Family History Father HTN (hypertension) Mother No significant past medical history Social History marital status: Single Current Living Situation: Alone current occupational status: employed Feels Safe at Home: Yes Smoking Status: Never smoker Hx Alcohol Use: Yes (3 beers two to three times per week) Alcohol Intake Frequency: a few times a week Alcohol Intake Frequency Comment: 2-3 x a week ( drinks 3-4 reds apple dariel) Hx Substance Use: No Beliefs That Will Affect Care: None Preferred Language: B[place]ian Communication Ability: Effective Review of Systems Constitutional: as per Subjective / HPI Respiratory: no cough and no dyspnea Cardiovascular: + edema; no chest pain and no lightheadedness Gastrointestinal: as per Subjective / HPI, + abdominal pain and + heartburn Integumentary: as per Subjective / HPI Physical Exam 2 Vital Signs (Past 24 Hours): Last Vital Signs Temp 37.2 C 09/15/18 09:09 Pulse 113 H 09/15/18 14:01 Resp 30 H 09/15/18 14:01 BP 112/73 09/15/18 14:00 Pulse Ox 96 09/15/18 14:01 Constitutional: + ill appearing and cooperative Eyes: PERRL sclera icteric ENMT: external ear and nose normal, oropharynx normal Respiratory: normal respiratory effort, lungs clear to auscultation Cardiovascular: RRR, no murmur, no edema Rate/Rhythm: regular rate and regular rhythm Extremities: + pedal edema and + edema Gastrointestinal (Abdomen): normal bowel sounds, soft, nontender, no hepatosplenomegaly Inspection/Auscultation: + abdomen distended Percussion /Palpation: abdomen nontender and no guarding Skin: no rashes, warm and dry + jaundice Neurologic: Motor/Sensory: no asterixis Psychiatric: A+Ox3, euthymic affect Genitourinary: scrotal edema Lymphatic: + lymphedema Results & Data Laboratory Results Laboratory Results - last 48 hr 09/15/18 09/15/18 09/15/18 09:30 09:30 09:35 WBC RBC Hgb Hct MCV MCH MCHC RDW Std Deviation RDW Coeff of [place] Plt Count MPV Immature Gran % (Auto) Neut % (Auto) Lymph % (Auto) [place] % (Auto) Eos % (Auto) Baso % (Auto) Immature Gran # (Auto) Neut # (Auto) Lymph # (Auto) [place] # (Auto) Eos # (Auto) Baso # (Auto) PT INR Sodium Potassium Chloride Carbon Dioxide Anion Gap BUN Creatinine Est Cr Clr Drug Dosing Est GFR ( Amer) Est GFR (Non-Af Amer) BUN/Creatinine Ratio Glucose POC Lactic Acid Micky Lactate Calcium Magnesium Iron 80 TIBC 124 L Ferritin 1652.2 H Total Bilirubin Direct Bilirubin AST ALT Alkaline Phosphatase Troponin I < 0.015 Total Protein Albumin Lipase Urine Color Urine Appearance Urine pH Ur Specific [place] Urine Protein Urine Glucose (UA) Urine Ketones Urine Blood Urine Nitrite Urine Bilirubin Urine Urobilinogen Ur Leukocyte Esterase Urine RBC Urine WBC Ur Epithelial Cells Other Crystals Urine Bacteria Hyaline Casts Granular Casts WBC Casts Urine Mucus Acetaminophen Ethyl Alcohol mg/dL Hep Bs Antigen Neg Hepatitis C Antibody Neg 09/15/18 09/15/18 09/15/18 09:35 09:35 09:35 WBC 17.30 H RBC 3.89 L Hgb 13.3 L Hct 37.1 L MCV 95.4 MCH 34.2 H MCHC 35.8 RDW Std Deviation 48.6 H RDW Coeff of [place] 14.2 Plt Count 240 MPV 9.7 Immature Gran % (Auto) 0.2 Neut % (Auto) 81.5 Lymph % (Auto) 4.6 [place] % (Auto) 13.0 Eos % (Auto) 0.5 Baso % (Auto) 0.2 Immature Gran # (Auto) 0.03 H Neut # (Auto) 14.10 H Lymph # (Auto) 0.80 L [place] # (Auto) 2.25 H Eos # (Auto) 0.09 Baso # (Auto) 0.03 PT 24.0 H INR 2.5 H Sodium Potassium Chloride Carbon Dioxide Anion Gap BUN Creatinine Est Cr Clr Drug Dosing Est GFR ( Amer) Est GFR (Non-Af Amer) BUN/Creatinine Ratio Glucose POC Lactic Acid Micky Lactate Calcium Magnesium Iron TIBC Ferritin Total Bilirubin Direct Bilirubin AST ALT Alkaline Phosphatase Troponin I Total Protein Albumin Lipase Urine Color Urine Appearance Urine pH Ur Specific [place] Urine Protein Urine Glucose (UA) Urine Ketones Urine Blood Urine Nitrite Urine Bilirubin Urine Urobilinogen Ur Leukocyte Esterase Urine RBC Urine WBC Ur Epithelial Cells Other Crystals Urine Bacteria Hyaline Casts Granular Casts WBC Casts Urine Mucus Acetaminophen Cancelled Ethyl Alcohol mg/dL Hep Bs Antigen Hepatitis C Antibody 02/09/15/18 09/15/18 09:35 09:35 09:35 WBC RBC Hgb Hct MCV MCH MCHC RDW Std Deviation RDW Coeff of [place] Plt Count MPV Immature Gran % (Auto) Neut % (Auto) Lymph % (Auto) [place] % (Auto) Eos % (Auto) Baso % (Auto) Immature Gran # (Auto) Neut # (Auto) Lymph # (Auto) [place] # (Auto) Eos # (Auto) Baso # (Auto) PT INR Sodium 123 L Potassium 3.5 Chloride 85 L Carbon Dioxide 29 Anion Gap 9.0 BUN 8 Creatinine 1.35 Est Cr Clr Drug Dosing Not Reportable Est GFR ( Amer) 81.1 Est GFR (Non-Af Amer) 70.0 BUN/Creatinine Ratio 5.7 L Glucose 87 POC Lactic Acid Micky Lactate 4.1 H* Calcium 7.8 L Magnesium 1.6 L Iron TIBC Ferritin Total Bilirubin 17.0 H Direct Bilirubin 11.3 H AST 376 H ALT 142 H Alkaline Phosphatase 238 H Troponin I Total Protein 6.0 L Albumin 2.4 L Lipase 173 Urine Color Brown Urine Appearance Cloudy H Urine pH Not Reportable Ur Specific [place] 1.036 Urine Protein Urine Glucose (UA) Urine Ketones Urine Blood Urine Nitrite Urine Bilirubin Urine Urobilinogen Ur Leukocyte Esterase Urine RBC 0-4 Urine WBC >30 H Ur Epithelial Cells 5-10 H Other Crystals [place] Urine Bacteria 2+ H Hyaline Casts >30 H Granular Casts 1-5 H WBC Casts 1-5 H Urine Mucus Present H Acetaminophen Ethyl Alcohol mg/dL Hep Bs Antigen Hepatitis C Antibody 09/15/18 09/15/18 09/15/18 09:56 10:07 13:30 WBC RBC Hgb Hct MCV MCH MCHC RDW Std Deviation RDW Coeff of [place] Plt Count MPV Immature Gran % (Auto) Neut % (Auto) Lymph % (Auto) [place] % (Auto) Eos % (Auto) Baso % (Auto) Immature Gran # (Auto) Neut # (Auto) Lymph # (Auto) [place] # (Auto) Eos # (Auto) Baso # (Auto) PT INR Sodium Potassium Chloride Carbon Dioxide Anion Gap BUN Creatinine Est Cr Clr Drug Dosing Est GFR ( Amer) Est GFR (Non-Af Amer) BUN/Creatinine Ratio Glucose POC Lactic Acid Micky 4.03 H 3.10 H Lactate Calcium Magnesium Iron TIBC Ferritin Total Bilirubin Direct Bilirubin AST ALT Alkaline Phosphatase Troponin I Total Protein Albumin Lipase Urine Color Urine Appearance Urine pH Ur Specific [place] Urine Protein Urine Glucose (UA) Urine Ketones Urine Blood Urine Nitrite Urine Bilirubin Urine Urobilinogen Ur Leukocyte Esterase Urine RBC Urine WBC Ur Epithelial Cells Other Crystals Urine Bacteria Hyaline Casts Granular Casts WBC Casts Urine Mucus Acetaminophen Ethyl Alcohol mg/dL < 3.0 Hep Bs Antigen Hepatitis C Antibody
[2018-09-15] MEDS: MAGNESIUM SULFATE / D5W 1 GM/100 ML BAG IV SCH ×2 (15:11→15:14)
[2018-09-15] MEDS: ALBUMIN 25% 50 ML IV SCH ×4 (15:51→19:39)
[2018-09-15] MEDS ORDERED: prednisoLONE SYRUP 15 MG/5 ML BTL PO ONE (16:00)
[2018-09-15 16:17] LABS: Appearance Peritoneal Fluid CLEAR; Color Peritoneal Fluid YELLOW; Mononuclear WBC Peritoneal 78.5 %; Polynuclear WBC Peritoneal 21.5 %; RBC Peritoneal Fluid (A) < 3000 /uL; WBC Peritoneal Fluid (A) 109 /ul (0-300)
[2018-09-15] MEDS ORDERED: LORazepam 1 MG TAB PO PRN (16:37)
[2018-09-15] MEDS ORDERED: MAGNESIUM HYDROXIDE SUSP 30 ML UDC PO PRN (16:37)
[2018-09-15] MEDS ORDERED: ALUMINUM/MAGNESIUM SUSP 30 ML UDC PO PRN (16:37)
[2018-09-15] MEDS ORDERED: POLYETHYLENE (MIRALAX) 17 GM PACK PO PRN (16:37)
[2018-09-15] MEDS ORDERED: ONDANSETRON INJ 2 MG/ML 2 ML VIAL IV PRN (16:37)
[2018-09-15] MEDS ORDERED: cefTRIAXone SODIUM 1,000 MG in DEXTROSE 5% 50 ML IV STA (16:51)
--- NOTE | 2018-09-15 17:29 | Ultrasound Report ---
US paracentesis abd w/image CLINICAL HISTORY: 32 years-old Male with ascites. COMPARISON: CT abdomen and pelvis of same day PROCEDURE: The procedure was explained to the patient in the care including the benefits and possible risks/complications. The patient gave verbal understanding and written consent was obtained. A time -out was performed prior to the start of the procedure. The patient was placed on the ultrasound table in the supine position. Using ultrasound guidance, an appropriate procedure site in the right lower abdomen was marked. This area was then prepped and drap ed in the usual sterile fashion. Local anesthesia was achieved within 1% lidocaine. An 8-[place] cente sis catheter was then inserted. Approximately 4.0 liters of yellowish fluid was removed and 1 L was s ent to the lab for analysis. The catheter was removed and external pressure was held to achieve hemostasis. A sterile dressing was applied to the procedure site. The patient tolerated the procedure well without immediate complicati ons. IMPRESSION: Successful ultrasound-guided paracentesis with removal of 4.0 L ascitic fluid The above report was generated using voice recognition software. It may contain grammatical, syntax o r spelling errors. Electronically signed by: Gerson Chowdary M.D. 09/15/2018 5:27 PM
[2018-09-15 17:47] LABS: Aspartate Aminotransferase 315 U/L (15-37)
[2018-09-15 17:48] LABS: Magnesium 1.9 mg/dl (1.8-2.4)
[2018-09-15] MEDS: FOLIC ACID 1 MG TAB PO SCH (17:49)
[2018-09-15] MEDS: THIAMINE HCL 100 MG TAB PO SCH (17:49)
[2018-09-15 17:58] LABS: Alanine Aminotransferase 114 U/L (12-78); Albumin Globulin Ratio 0.7 (0.9-2); Albumin Level 2.1 gm/dl (3.4-5.0); Alkaline Phosphatase 185 U/L (45-117); BUN Creatinine Ratio 5.5 (10-20); Bilirubin,Total 15.1 mg/dl (0.2-1); Blood Urea Nitrogen 7 mg/dl (7-18); Calcium 7.1 mg/dl (8.5-10.1); Carbon Dioxide 24 mmol/L (21-32); Chloride 88 mmol/L (98-107); Creatinine Clr Calc Pharmacy 91.4 ml/min; Est GFR (African American) 91.6; Est GFR (Non-African American) 79.1; Globulin 3.1 gm/dl (2.5-4.0); Glucose 97 mg/dl (70-99); Sodium 122 mmol/L (136-145); Total Protein 5.2 gm/dl (6.4-8.2); Troponin I 0.019 ng/ml (0-0.045)
[2018-09-16 06:49] LABS: Hematocrit (blood only) 36.4 % (42-52); Hemoglobin 12.9 g/dL (14.0-18.0); Immature Granulocytes # (auto) 0.03 K/uL (0.00-0.02); Immature Granulocytes % (auto) 0.3 %; Lymphocytes # (auto) 0.44 K/uL (1.2-3.4); Lymphocytes % (auto) 4.4 %; Mean Corpuscular Hgb Conc 35.4 g/dL (32-36); Mean Corpuscular Volume 96.3 fL (80-100); Mean Platelet Volume 9.8 fL (7.4-10.4); Monocytes % (auto) 7.1 %; Neutrophils # (auto) 8.73 K/uL (1.4-6.5); Neutrophils % (auto) 88.2 %; Platelet Count 157 K/uL (130-400); RDW Coefficient of Variation 14.5 % (11.5-14.5); RDW Standard Deviation 51.1 fL (36.4-46.3); Red Blood Count 3.78 M/uL (4.7-6.1)
[2018-09-16 06:57] LABS: Prothrombin Time 19.9 Seconds (9.0-12.0)
[2018-09-16] MEDS: FOLIC ACID 1 MG TAB PO SCH (07:58)
[2018-09-16] MEDS: THIAMINE HCL 100 MG TAB PO SCH (07:58)
[2018-09-16] MEDS: prednisoLONE SYRUP 15 MG/5 ML BTL PO SCH (07:58)
[2018-09-16] MEDS: cefTRIAXone SODIUM 2,000 MG in DEXTROSE 5% 50 ML IV SCH (09:17)
[2018-09-16] MEDS ORDERED: PHYTONADIONE 10 MG in SODIUM CHLORIDE 0.9% 50 ML IV ONE (09:45)
[2018-09-16 09:46] LABS: Albumin Level 2.8 gm/dl (3.4-5.0); BUN Creatinine Ratio 6.5 (10-20); Calcium 8.6 mg/dl (8.5-10.1); Creatinine Clr Calc Pharmacy 87.1 ml/min; Est GFR (African American) 86.5; Est GFR (Non-African American) 74.6
[2018-09-16 10:07] LABS: Bilirubin,Total 18.6 mg/dl (0.2-1)
[2018-09-16 10:09] LABS: Globulin 3.5 gm/dl (2.5-4.0); Total Protein 6.3 gm/dl (6.4-8.2)
[2018-09-16 10:10] LABS: Albumin Globulin Ratio 0.8 (0.9-2)
[2018-09-16 10:11] LABS: Potassium 4.2 mmol/L (3.5-5.1)
[2018-09-16] MEDS: ALBUMIN 25% 50 ML IV SCH ×4 (11:19→13:53)
--- NOTE | 2018-09-16 12:00 | Gastroenterology Progress Note ---
Date of Service September 16, 2018 Assessment & Plan (1) Jaundice: (2) Ascites: (3) Edema: (4) Elevated LFTs: Pt is a 32 y/o male presented w jaundice, ascites, scrotal and leg edema. Noted to have elevated LFTs and CT evidence of severe hepatic steatosis, meseteric varices, pulmonary hypertension and vascular congestion. Denies hx of autoimmune liver disease in the family, no risk factor for viral hepatitis. Does admit to ETOH use 6-7 beers, 2-3 a week. Suspect alcoholic hepatitis. MELD 35, Maddrey Discriminant Score 72 - Monitor PT/INR, Cr, LFTs daily - Pending serologies to r/o autoimmune, hereditary liver diseases, acute viral hepatitis - 20 U/S paracentesis w 4L ascites removal. No signs of SBP, awaiting fluid albumin to calculate SAAG. - Repeat another dose of Albumin 25% 50g IV today - Vit K 10mg IV x1 dose - Prednisolone 40mg PO for suspected alcoholic hepatitis. - Defer diuretics for now given electrolyte derrangement and increasing Cr from baseline. - Fluid restriction 2L a day, 2g Na diet - ETOH cessation; avoid hepatotoxic meds - Electrolyte correction per primary team. - Will follow along closely Attg add: I interviewed and examined pt, reviewed chart and labs. Pt s/p tap today; fluid studies showed no evidence of SBP, high SAAG, and low tot prot in peritoneal fluid. He has no complaints. Prednisolone begun yesterday. He is eating with vigorous appetite. He continues to revise upwards his estimate of alcohol intake, although he has not had any evidence of withdrawal. On exam, he has no evidence of confusion; he has incr abd girth and pedal edema. His lunch tray is empty. His labs show rising bili, improved INR s/p vit K, and improved creat. U na 8 Cont recs as above: Prednisolone, nutritinal support with calorie count, follow bilirubin with plans to d/c steroids if bili cont to rise. Albumin again today , close f/u of creat. Defer diuretics given tap and low u NA today, but may begin in the next 1-2 days. Will d/w family extent of disease, prognosis. Subjective No acute events overnight. Pt reports abdomen feels better, denies any N/V. BM this AM w/o rectal bleeding. Yesterday had 4L ascites fluid removed via u/s guided paracentesis. Cell ct w/o signs of SBP Physical Exam 2 Vital Signs (Past 24 Hours): Last Vital Signs Temp 36.9 C 09/16/18 11:42 Pulse 107 H 09/16/18 11:42 Resp 18 09/16/18 11:42 BP 110/74 09/16/18 11:42 Pulse Ox 93 09/16/18 11:42 Constitutional: + ill appearing, + thin, well groomed, cooperative and comfortable Eyes: + scleral abnormality (icteric), PERRL and EOM intact bilaterally ENMT: external ear and nose normal, oropharynx normal Respiratory: normal respiratory effort, lungs clear to auscultation Cardiovascular: RRR, no murmur, no edema Gastrointestinal (Abdomen): Inspection/Auscultation: + abdomen distended (mild ) and normal bowel sounds Percussion/Palpation: abdomen nontender Skin: no rashes, warm and dry + jaundice Neurologic: Motor/Sensory: no asterixis Psychiatric: A+Ox3, euthymic affect Lymphatic: + lymphedema (bilateral LE) Results & Data Laboratory Results Laboratory Results - last 72 hr 09/15/18 09/15/18 09/15/18 09:30 09:30 09:35 WBC RBC Hgb Hct MCV MCH MCHC RDW Std Deviation RDW Coeff of [place] Plt Count MPV Immature Gran % (Auto) Neut % (Auto) Lymph % (Auto) [place] % (Auto) Eos % (Auto) Baso % (Auto) Immature Gran # (Auto) Neut # (Auto) Lymph # (Auto) [place] # (Auto) Eos # (Auto) Baso # (Auto) PT INR Sodium Potassium Chloride Carbon Dioxide Anion Gap BUN Creatinine Est Cr Clr Drug Dosing Est GFR ( Amer) Est GFR (Non-Af Amer) BUN/Creatinine Ratio Glucose Osmolality POC Lactic Acid Micky Lactate Calcium Magnesium Iron 80 TIBC 124 L Ferritin 1652.2 H Total Bilirubin Direct Bilirubin AST ALT Alkaline Phosphatase Troponin I < 0.015 Total Protein Albumin Globulin Albumin/Globulin Ratio Lipase Folate Urine Color Urine Appearance Urine pH Ur Specific [place] Urine Protein Urine Glucose (UA) Urine Ketones Urine Blood Urine Nitrite Urine Bilirubin Urine Urobilinogen Ur Leukocyte Esterase Urine RBC Urine WBC Ur Epithelial Cells Other Crystals Urine Bacteria Hyaline Casts Granular Casts WBC Casts Urine Mucus Urine Osmolality Ur Random Sodium Peritoneal Color Peritoneal Appearance Peritoneal WBC Peritoneal RBC Mononuclear WBCs % Polynuclear WBCs % Peritoneal Tot Protein Acetaminophen Ethyl Alcohol mg/dL Hepatitis A IgM Ab Hep Bs Antigen Neg Hep B Core IgM Ab Hepatitis C Antibody Neg 09/15/18 09/15/18 09/15/18 09:35 09:35 09:35 WBC 17.30 H RBC 3.89 L Hgb 13.3 L Hct 37.1 L MCV 95.4 MCH 34.2 H MCHC 35.8 RDW Std Deviation 48.6 H RDW Coeff of [place] 14.2 Plt Count 240 MPV 9.7 Immature Gran % (Auto) 0.2 Neut % (Auto) 81.5 Lymph % (Auto) 4.6 [place] % (Auto) 13.0 Eos % (Auto) 0.5 Baso % (Auto) 0.2 Immature Gran # (Auto) 0.03 H Neut # (Auto) 14.10 H Lymph # (Auto) 0.80 L [place] # (Auto) 2.25 H Eos # (Auto) 0.09 Baso # (Auto) 0.03 PT INR Sodium Potassium Chloride Carbon Dioxide Anion Gap BUN Creatinine Est Cr Clr Drug Dosing Est GFR ( Amer) Est GFR (Non-Af Amer) BUN/Creatinine Ratio Glucose Osmolality POC Lactic Acid Micky Lactate Calcium Magnesium Iron TIBC Ferritin Total Bilirubin Direct Bilirubin AST ALT Alkaline Phosphatase Troponin I Total Protein Albumin Globulin Albumin/Globulin Ratio Lipase Folate Urine Color Urine Appearance Urine pH Ur Specific [place] Urine Protein Urine Glucose (UA) Urine Ketones Urine Blood Urine Nitrite Urine Bilirubin Urine Urobilinogen Ur Leukocyte Esterase Urine RBC Urine WBC Ur Epithelial Cells Other Crystals Urine Bacteria Hyaline Casts Granular Casts WBC Casts Urine Mucus Urine Osmolality Ur Random Sodium Peritoneal Color Peritoneal Appearance Peritoneal WBC Peritoneal RBC Mononuclear WBCs % Polynuclear WBCs % Peritoneal Tot Protein Acetaminophen Cancelled Ethyl Alcohol mg/dL Hepatitis A IgM Ab NON-REACTIVE Hep Bs Antigen Hep B Core IgM Ab NON-REACTIVE Hepatitis C Antibody 09/15/18 09/15/18 09/15/18 09:35 09:35 09:35 WBC RBC Hgb Hct MCV MCH MCHC RDW Std Deviation RDW Coeff of [place] Plt Count MPV Immature Gran % (Auto) Neut % (Auto) Lymph % (Auto) [place] % (Auto) Eos % (Auto) Baso % (Auto) Immature Gran # (Auto) Neut # (Auto) Lymph # (Auto) [place] # (Auto) Eos # (Auto) Baso # (Auto) PT 24.0 H INR 2.5 H Sodium 123 L Potassium 3.5 Chloride 85 L Carbon Dioxide 29 Anion Gap 9.0 BUN 8 Creatinine 1.35 Est Cr Clr Drug Dosing Not Reportable Est GFR ( Amer) 81.1 Est GFR (Non-Af Amer) 70.0 BUN/Creatinine Ratio 5.7 L Glucose 87 Osmolality POC Lactic Acid Micky Lactate Calcium 7.8 L Magnesium 1.6 L Iron TIBC Ferritin Total Bilirubin 17.0 H Direct Bilirubin 11.3 H AST 376 H ALT 142 H Alkaline Phosphatase 238 H Troponin I Total Protein 6.0 L Albumin 2.4 L Globulin Albumin/Globulin Ratio Lipase 173 Folate Urine Color Brown Urine Appearance Cloudy H Urine pH Not Reportable Ur Specific [place] 1.036 Urine Protein Urine Glucose (UA) Urine Ketones Urine Blood Urine Nitrite Urine Bilirubin Urine Urobilinogen Ur Leukocyte Esterase Urine RBC 0-4 Urine WBC >30 H Ur Epithelial Cells 5-10 H Other Crystals [place] Urine Bacteria 2+ H Hyaline Casts >30 H Granular Casts 1-5 H WBC Casts 1-5 H Urine Mucus Present H Urine Osmolality Ur Random Sodium Peritoneal Color Peritoneal Appearance Peritoneal WBC Peritoneal RBC Mononuclear WBCs % Polynuclear WBCs % Peritoneal Tot Protein Acetaminophen Ethyl Alcohol mg/dL Hepatitis A IgM Ab Hep Bs Antigen Hep B Core IgM Ab Hepatitis C Antibody 09/15/18 09/15/18 09/15/18 09:35 09:56 10:07 WBC RBC Hgb Hct MCV MCH MCHC RDW Std Deviation RDW Coeff of [place] Plt Count MPV Immature Gran % (Auto) Neut % (Auto) Lymph % (Auto) [place] % (Auto) Eos % (Auto) Baso % (Auto) Immature Gran # (Auto) Neut # (Auto) Lymph # (Auto) [place] # (Auto) Eos # (Auto) Baso # (Auto) PT INR Sodium Potassium Chloride Carbon Dioxide Anion Gap BUN Creatinine Est Cr Clr Drug Dosing Est GFR ( Amer) Est GFR (Non-Af Amer) BUN/Creatinine Ratio Glucose Osmolality POC Lactic Acid Micky 4.03 H Lactate 4.1 H* Calcium Magnesium Iron TIBC Ferritin Total Bilirubin Direct Bilirubin AST ALT Alkaline Phosphatase Troponin I Total Protein Albumin Globulin Albumin/Globulin Ratio Lipase Folate Urine Color Urine Appearance Urine pH Ur Specific [place] Urine Protein Urine Glucose (UA) Urine Ketones Urine Blood Urine Nitrite Urine Bilirubin Urine Urobilinogen Ur Leukocyte Esterase Urine RBC Urine WBC Ur Epithelial Cells Other Crystals Urine Bacteria Hyaline Casts Granular Casts WBC Casts Urine Mucus Urine Osmolality Ur Random Sodium Peritoneal Color Peritoneal Appearance Peritoneal WBC Peritoneal RBC Mononuclear WBCs % Polynuclear WBCs % Peritoneal Tot Protein Acetaminophen Ethyl Alcohol mg/dL < 3.0 Hepatitis A IgM Ab Hep Bs Antigen Hep B Core IgM Ab Hepatitis C Antibody 09/15/18 09/15/18 09/15/18 13:30 14:35 14:35 WBC RBC Hgb Hct MCV MCH MCHC RDW Std Deviation RDW Coeff of [place] Plt Count MPV Immature Gran % (Auto) Neut % (Auto) Lymph % (Auto) [place] % (Auto) Eos % (Auto) Baso % (Auto) Immature Gran # (Auto) Neut # (Auto) Lymph # (Auto) [place] # (Auto) Eos # (Auto) Baso # (Auto) PT INR Sodium Potassium Chloride Carbon Dioxide Anion Gap BUN Creatinine Est Cr Clr Drug Dosing Est GFR ( Amer) Est GFR (Non-Af Amer) BUN/Creatinine Ratio Glucose Osmolality POC Lactic Acid Micky 3.10 H Lactate Calcium Magnesium Iron TIBC Ferritin Total Bilirubin Direct Bilirubin AST ALT Alkaline Phosphatase Troponin I Total Protein Albumin Globulin Albumin/Globulin Ratio Lipase Folate Urine Color Urine Appearance Urine pH Ur Specific [place] Urine Protein Urine Glucose (UA) Urine Ketones Urine Blood Urine Nitrite Urine Bilirubin Urine Urobilinogen Ur Leukocyte Esterase Urine RBC Urine WBC Ur Epithelial Cells Other Crystals Urine Bacteria Hyaline Casts Granular Casts WBC Casts Urine Mucus Urine Osmolality Cancelled Ur Random Sodium Cancelled Peritoneal Color Peritoneal Appearance Peritoneal WBC Peritoneal RBC Mononuclear WBCs % Polynuclear WBCs % Peritoneal Tot Protein Acetaminophen Ethyl Alcohol mg/dL Hepatitis A IgM Ab Hep Bs Antigen Hep B Core IgM Ab Hepatitis C Antibody 09/15/18 09/15/18 09/15/18 15:22 15:22 15:29 WBC RBC Hgb Hct MCV MCH MCHC RDW Std Deviation RDW Coeff of [place] Plt Count MPV Immature Gran % (Auto) Neut % (Auto) Lymph % (Auto) [place] % (Auto) Eos % (Auto) Baso % (Auto) Immature Gran # (Auto) Neut # (Auto) Lymph # (Auto) [place] # (Auto) Eos # (Auto) Baso # (Auto) PT INR Sodium Potassium Chloride Carbon Dioxide Anion Gap BUN Creatinine Est Cr Clr Drug Dosing Est GFR ( Amer) Est GFR (Non-Af Amer) BUN/Creatinine Ratio Glucose Osmolality 263 L POC Lactic Acid Micky Lactate Calcium Magnesium Iron TIBC Ferritin Total Bilirubin Direct Bilirubin AST ALT Alkaline Phosphatase Troponin I Total Protein Albumin Globulin Albumin/Globulin Ratio Lipase Folate Urine Color Urine Appearance Urine pH Ur Specific [place] Urine Protein Urine Glucose (UA) Urine Ketones Urine Blood Urine Nitrite Urine Bilirubin Urine Urobilinogen Ur Leukocyte Esterase Urine RBC Urine WBC Ur Epithelial Cells Other Crystals Urine Bacteria Hyaline Casts Granular Casts WBC Casts Urine Mucus Urine Osmolality Ur Random Sodium Peritoneal Color YELLOW Peritoneal Appearance CLEAR Peritoneal WBC 109 Peritoneal RBC < 3000 Mononuclear WBCs % 78.5 Polynuclear WBCs % 21.5 Peritoneal Tot Protein 0.6 Acetaminophen Ethyl Alcohol mg/dL Hepatitis A IgM Ab Hep Bs Antigen Hep B Core IgM Ab Hepatitis C Antibody 09/15/18 09/15/18 09/15/18 17:03 17:03 17:03 WBC RBC Hgb Hct MCV MCH MCHC RDW Std Deviation RDW Coeff of [place] Plt Count MPV Immature Gran % (Auto) Neut % (Auto) Lymph % (Auto) [place] % (Auto) Eos % (Auto) Baso % (Auto) Immature Gran # (Auto) Neut # (Auto) Lymph # (Auto) [place] # (Auto) Eos # (Auto) Baso # (Auto) PT INR Sodium Potassium TNP Chloride 88 L Carbon Dioxide 24 Anion Gap 10.0 BUN 7 Creatinine 1.22 Est Cr Clr Drug Dosing 91.4 Est GFR ( Amer) 91.6 Est GFR (Non-Af Amer) 79.1 BUN/Creatinine Ratio 5.5 L Glucose 97 Osmolality POC Lactic Acid Micky Lactate 4.6 H* Calcium 7.1 L Magnesium 1.9 Iron TIBC Ferritin Total Bilirubin 15.1 H Direct Bilirubin AST 315 H ALT 114 H Alkaline Phosphatase 185 H Troponin I 0.019 Total Protein 5.2 L Albumin 2.1 L Globulin 3.1 Albumin/Globulin Ratio 0.7 L Lipase Folate 2.30 L Urine Color Urine Appearance Urine pH Ur Specific [place] Urine Protein Urine Glucose (UA) Urine Ketones Urine Blood Urine Nitrite Urine Bilirubin Urine Urobilinogen Ur Leukocyte Esterase Urine RBC Urine WBC Ur Epithelial Cells Other Crystals Urine Bacteria Hyaline Casts Granular Casts WBC Casts Urine Mucus Urine Osmolality Ur Random Sodium Peritoneal Color Peritoneal Appearance Peritoneal WBC Peritoneal RBC Mononuclear WBCs % Polynuclear WBCs % Peritoneal Tot Protein Acetaminophen Ethyl Alcohol mg/dL Hepatitis A IgM Ab Hep Bs Antigen Hep B Core IgM Ab Hepatitis C Antibody 09/15/18 09/15/18 09/15/18 21:33 22:00 22:00 WBC RBC Hgb Hct MCV MCH MCHC RDW Std Deviation RDW Coeff of [place] Plt Count MPV Immature Gran % (Auto) Neut % (Auto) Lymph % (Auto) [place] % (Auto) Eos % (Auto) Baso % (Auto) Immature Gran # (Auto) Neut # (Auto) Lymph # (Auto) [place] # (Auto) Eos # (Auto) Baso # (Auto) PT INR Sodium Potassium Chloride Carbon Dioxide Anion Gap BUN Creatinine Est Cr Clr Drug Dosing Est GFR ( Amer) Est GFR (Non-Af Amer) BUN/Creatinine Ratio Glucose Osmolality POC Lactic Acid Micky Lactate 4.0 H* Calcium Magnesium Iron TIBC Ferritin Total Bilirubin Direct Bilirubin AST ALT Alkaline Phosphatase Troponin I Total Protein Albumin Globulin Albumin/Globulin Ratio Lipase Folate Urine Color Urine Appearance Urine pH Ur Specific [place] Urine Protein Urine Glucose (UA) Urine Ketones Urine Blood Urine Nitrite Urine Bilirubin Urine Urobilinogen Ur Leukocyte Esterase Urine RBC Urine WBC Ur Epithelial Cells Other Crystals Urine Bacteria Hyaline Casts Granular Casts WBC Casts Urine Mucus Urine Osmolality 666 Ur Random Sodium 8 Peritoneal Color Peritoneal Appearance Peritoneal WBC Peritoneal RBC Mononuclear WBCs % Polynuclear WBCs % Peritoneal Tot Protein Acetaminophen Ethyl Alcohol mg/dL Hepatitis A IgM Ab Hep Bs Antigen Hep B Core IgM Ab Hepatitis C Antibody 09/16/18 09/16/18 09/16/18 05:57 05:57 06:00 WBC 9.90 RBC 3.78 L Hgb 12.9 L Hct 36.4 L MCV 96.3 MCH 34.1 H MCHC 35.4 RDW Std Deviation 51.1 H RDW Coeff of [place] 14.5 Plt Count 157 MPV 9.8 Immature Gran % (Auto) 0.3 Neut % (Auto) 88.2 Lymph % (Auto) 4.4 [place] % (Auto) 7.1 Eos % (Auto) 0.0 Baso % (Auto) 0.0 Immature Gran # (Auto) 0.03 H Neut # (Auto) 8.73 H Lymph # (Auto) 0.44 L [place] # (Auto) 0.70 H Eos # (Auto) 0.00 Baso # (Auto) 0.00 PT 19.9 H INR 2.0 H Sodium 125 L Potassium 4.2 D Chloride 88 L Carbon Dioxide 28 Anion Gap 9.0 BUN 8 Creatinine 1.28 Est Cr Clr Drug Dosing 87.1 Est GFR ( Amer) 86.5 Est GFR (Non-Af Amer) 74.6 BUN/Creatinine Ratio 6.5 L Glucose 112 H Osmolality POC Lactic Acid Micky Lactate Calcium 8.6 D Magnesium Iron TIBC Ferritin Total Bilirubin 18.6 H Direct Bilirubin AST 305 H ALT 119 H Alkaline Phosphatase 193 H Troponin I Total Protein 6.3 L D Albumin 2.8 L Globulin 3.5 Albumin/Globulin Ratio 0.8 L Lipase Folate Urine Color Urine Appearance Urine pH Ur Specific [place] Urine Protein Urine Glucose (UA) Urine Ketones Urine Blood Urine Nitrite Urine Bilirubin Urine Urobilinogen Ur Leukocyte Esterase Urine RBC Urine WBC Ur Epithelial Cells Other Crystals Urine Bacteria Hyaline Casts Granular Casts WBC Casts Urine Mucus Urine Osmolality Ur Random Sodium Peritoneal Color Peritoneal Appearance Peritoneal WBC Peritoneal RBC Mononuclear WBCs % Polynuclear WBCs % Peritoneal Tot Protein Acetaminophen Ethyl Alcohol mg/dL Hepatitis A IgM Ab Hep Bs Antigen Hep B Core IgM Ab Hepatitis C Antibody
--- NOTE | 2018-09-16 14:45 | Ophthalmology Consultation ---
Date of Consultation September 16, 2018 Assessment & Plan (1) Elevated LFTs: Exam did not reveal Kayser_Fleischer rings. However, the exam was done at the bedside with a portable slit lamp which may limit the ablility to see early or more subtle KF rings. If the diagnosis is still in doubt after discharge I would be happy to re-examine the patient as an out patient. History of Present Illness Reason for Consultation: Patient is a 32 year old man presented in liver failure. Care team requested exam to assess for Ken-Keyonna rings to rule out Ray's disease. Patient reports last eye exam about 6-12 months ago was normal. Attending Physician: Anabela Orantes MD Allergies Allergy/AdvReac Type Severity Reaction Status Date / Time No Known Allergies Allergy Unverified 09/15/18 10:28 Home Medications Home Medications Medication Instructions Recorded Confirmed Type No Known Home Medications 09/15/18 09/15/18 History Patient History Medical History Congenital insufficiency of aortic valve (Chronic) Nonrheumatic tricuspid (valve) insufficiency (Chronic) Surgical History History of repair of coarctation of aorta History of inguinal hernia repair Family History Father HTN (hypertension) Mother No significant past medical history Social History marital status: Single Current Living Situation: Other Current Living Situation Comment: roomates current occupational status: employed Other Information That Helps Us Care for You: No Feels Safe at Home: Yes Safety Concerns: Feels Safe At This Time Smoking Status: Never smoker Hx Alcohol Use: Yes Alcohol type: beer Alcohol Intake Frequency: a few times a week Alcohol Intake Frequency Comment: 2-3 x a week ( drinks 3-4 reds apple dariel) Hx Substance Use: No Beliefs That Will Affect Care: None Communication Ability: Effective Review of Systems Patient denies any ocular symptoms. Physical Exam 2 Vital Signs (Past 24 Hours): Last Vital Signs Temp 36.9 C 09/16/18 11:42 Pulse 107 H 09/16/18 11:42 Resp 18 02/21/19 11:42 BP 110/74 09/16/18 11:42 Pulse Ox 93 09/16/18 11:42 Eyes: Vision: 20/20 OU as measured on a near aciuty card with correction Pupils: PERRL [place]: normal versions Visual parker: full to confrontation Slit lamp (portable): Normal lids, cornea, anterior chamber, iris and lens. Sclera yellow with jaundiced appearance Fundus (undilated): normal optic nerves, macula, retinal vessels, and retinal periphery
--- NOTE | 2018-09-16 16:37 | Hospitalist Progress Note ---
Date of Service September 16, 2018 Assessment & Plan (1) Acute hepatitis: Likely secondary to alcohol abuse LFTs were as follows AST 376, ALT 142, alk phos 238, T bili 17 Lactic acid 4.1-doubt any sepsis He received broad spectrum antibiotic with 1g Rocephin Appreciate GI input and recommendation Diagnostic and therapeutic paracentesis send fluid for culture and analysis Status post 4 L paracentesis Has been started on prednisone for alcoholic hepatitis Continue current antibiotic for possible SBP (2) Anasarca: As above Status post 4 L paracentesis Present on Admission?: Yes (3) Hyperbilirubinemia: Secondary to hepatic steatosis No significant extrahepatic biliary obstruction as per the scan (4) Leukocytosis: -plan as above, he is afebrile -no known infectious source at this time however will continue to cover with rocephin for /GI as possible etiology -await urine, blood and peritoneal fluid culture -Has been on ceftriaxone for possible SBP (5) Hyponatremia: -likely in setting of large volume ascites, chronic -s/p 2L IVF -check serum/urine osm, urine na -follow bmp-sodium level remains low at 125 (6) Hypomagnesemia: -replace with 2g mag sulfate -repeat mag in a.m. -Hypomagnesemia is corrected (7) Elevated INR (international normalized ratio): -INR 2.5, likely in setting of liver disease -10mg mephyton given per GI -repeat INR (8) Lactic acidosis: -Lactic acid 4.1, repeat was 3 at 13:30 -likely in setting of hepatic failure but infection not entirely ruled out -await urine, blood, peritoneal cultures -continue IV antibiotic -follow lactate level -will hold on further IVF given significant volume overload (9) Prolonged Q-T interval on ECG: -avoid QT prolonging medications (10) DVT prophylaxis: -SCDS Disposition: to be determined Follow up: Pt will need established with PCP upon discharge Patient was seen in collaboration with Dr. Prasad, please see addendum Starting 09/16/28 patient will be followed by Dr. Orantes Subjective This is a 32 year old male who has a significant pmh of congenital coarctation of aorta s/p repair and repair of R inguinal hernia who presents to [facility] secondary to jaundice and scrotal swelling x 7-10 days. Noted to have severe hepatic steatosis with abnormal LFTs and moderate ascites. 09/16 Patient was seen and examined in telemetry He remains generally weak but feels a little better Denies any significant pain, fever and no shortness of breath Abdominal distention is improving Constitutional: as per Subjective / HPI Cardiovascular: + edema; no chest pain and no lightheadedness Gastrointestinal: as per Subjective / HPI, + abdominal pain and + heartburn Integumentary: as per Subjective / HPI Physical Exam 2 Vital Signs (Past 24 Hours): Last Vital Signs Temp 37.0 C 09/16/18 15:18 Pulse 114 H 09/16/18 15:18 Resp 20 09/16/18 15:18 BP 123/81 09/16/18 15:18 Pulse Ox 92 09/16/18 15:18 Constitutional: + ill appearing, + thin, well groomed, cooperative and comfortable Eyes: + scleral abnormality (icteric), PERRL and EOM intact bilaterally ENMT: external ear and nose normal, oropharynx normal Neck: trachea midline, no thyromegaly Respiratory: normal respiratory effort; no respiratory distress and no labored breathing Auscultation: + diminished lung sounds; no crackles and no wheezes Cardiovascular: RRR, no murmur, no edema Rate/Rhythm: regular rate and regular rhythm Extremities: + pedal edema and + edema Gastrointestinal (Abdomen): Inspection/Auscultation: + abdomen distended (mild ) and normal bowel sounds Percussion/Palpation: + abdomen tender (Minimally tender) and abdomen soft; no guarding Skin: no rashes, warm and dry + jaundice Neurologic: Motor/Sensory: no asterixis Psychiatric: A+Ox3, euthymic affect Lymphatic: + lymphedema (bilateral LE) Results & Data Laboratory Results Short CBC 09/16/18 Range/Units 05:57 WBC 9.90 (4.8-10.8) K/uL Hgb 12.9 L (14.0-18.0) g/dL Hct 36.4 L (42-52) % Plt Count 157 (130-400) K/uL BMP 09/15/18 09/16/18 17:03 06:00 Sodium 125 L Potassium TNP 4.2 D Chloride 88 L 88 L Carbon Dioxide 24 28 BUN 7 8 Creatinine 1.22 1.28 Glucose 97 112 H Calcium 7.1 L 8.6 D Cardiac Enzymes 09/15/18 Range/Units 17:03 Troponin I 0.019 (0-0.045) ng/ml Liver Function 09/15/18 09/16/18 Range/Units 17:03 06:00 Total Bilirubin 15.1 H 18.6 H (0.2-1) mg/dl AST 315 H 305 H (15-37) U/L ALT 114 H 119 H (12-78) U/L Alkaline Phosphatase 185 H 193 H (45-117) U/L Albumin 2.1 L 2.8 L (3.4-5.0) gm/dl Medications Administered Current Inpatient Medications Al Hydrox/Mg Hydrox/Simethicone (Maalox) 30 ml PO Q6H PRN PRN Reason: Dyspepsia Stop: 10/15/18 16:36 Folic Acid (Folvite) [facility] [place] [facility] [place]: 10/15/18 16:59 Last Admin: 09/16/18 07:58 Dose: 1 mg Ceftriaxone Sodium 2,000 mg/ (Dextrose) 70 mls @ 100 mls/hr IV Q24H [facility]; Protocol Stop: 09/21/18 08:59 Last Infusion: 09/16/18 10:03 Dose: Infused Lorazepam (Ativan) 1 mg PO ONE PRN; Protocol PRN Reason: EtoH Withdrawal AWSS 6-10 Magnesium Hydroxide (Milk Of Magnesia) 30 ml PO Q6H PRN PRN Reason: Constipation Stop: 10/15/18 16:36 Ondansetron HCl (Zofran) 4 mg IV Q6H PRN PRN Reason: Nausea Stop: 10/15/18 16:36 Polyethylene Glycol (Miralax Powder Packet) 17 gm PO DAILY PRN PRN Reason: Constipation Stop: 10/15/18 16:36 Prednisone (Prelone) 40 mg PO DAILY [facility] Stop: 10/16/18 08:59 Last Admin: 09/16/18 07:58 Dose: 40 mg Thiamine HCl (Vitamin B-1) 100 mg PO QAM [facility] Stop: 10/15/18 16:59 Last Admin: 09/16/18 07:58 Dose: 100 mg _ (1) Leukocytosis Leukocytosis type: unspecified Qualified Code(s): D72.829 - Elevated white blood cell count, unspecified
[2018-09-16] MEDS ORDERED: ACETYLCYSTEINE IV ONE ×3 (17:15→22:10)
[2018-09-16] MEDS ORDERED: DEXTROSE 5% IV ONE ×3 (17:15→22:10)
--- NOTE | 2018-09-16 20:08 | Emergency Department Note ---
Entered by Jaya Curtis acting as a scribe for FarihaIsagucci Low DO History of Present Illness General Chief complaint: Abdominal Pain Stated complaint: JAUNDICE, ABD DISTENTION Time Seen by Provider: 09/15/18 09:34 Source: patient History of Present Illness Onset (ago): day(s) 1 Location: face (skin), upper extremity (skin) and lower extremity (skin) Pain Consistency: + other (persistent) Quality: + other (jaundice) Relieved By: + other (testicular pain improved with ice) Associated symptoms: + other (intermittent abdominal pain, testicular pain and swelling); no chest pain, no cough and no shortness of breath The patient is a 32 year old male who presents to the Emergency Room with complaints of persistent jaundice beginning yesterday. The patient reports that he was told by his coworkers that he appeared yellow/pale and recommended he come to the ER. The patient also reports intermittent abdominal pain for the past week as well as persistent testicular swelling and pain beginning 2-3 days ago. He reports that he has been applying ice to the testicles that relieves the pain but not the swelling. He states that he occasionally takes Tylenol but only when the pain gets really severe. He is unsure if anything triggers the abdominal pain. He notes that his abdomen occasionally feels bloated and distended. He denies nausea, fevers, chills, urinary symptoms, black/bloody stools, chest pain, shortness of breath, cough, or cold symptoms. He reports that he had an inguinal hernia repair on the right side in 2009, noting that he checks the region frequently and has not noticed any problems since the operation. He denies regular medication use, recreational or IV drugs, or smoking. He states that he drinks an average of three beers 2-3 times per week. He denies a history of liver problems, blood transfusion, or exposure to hepatitis. Home Medications Home Medications Medication Instructions Recorded Confirmed Type No Known Home Medications 09/15/18 09/15/18 History Allergies Allergy/AdvReac Type Severity Reaction Status Date / Time No Known Allergies Allergy Unverified 09/15/18 10:28 Past Med/Surg History Medical History Congenital insufficiency of aortic valve (Chronic) Nonrheumatic tricuspid (valve) insufficiency (Chronic) Surgical History History of repair of coarctation of aorta History of inguinal hernia repair Family History Father HTN (hypertension) Mother No significant past medical history Social History marital status: Single Current Living Situation: Other Current Living Situation Comment: roomates current occupational status: employed Other Information That Helps Us Care for You: No Feels Safe at Home: Yes Safety Concerns: Feels Safe At This Time Smoking Status: Never smoker Hx Alcohol Use: Yes Alcohol type: beer Alcohol Intake Frequency: a few times a week Alcohol Intake Frequency Comment: 2-3 x a week ( drinks 3-4 reds apple dariel) Hx Substance Use: No Beliefs That Will Affect Care: None Communication Ability: Effective Review of Systems See HPI for pertinent positives & negatives. and A total of 10 systems reviewed and were otherwise negative Physical Exam Vital Signs Vital Signs - 24 hr 09/15/18 23:15 09/16/18 00:35 09/16/18 03:40 Temperature 37.1 C 36.7 C 37.3 C Temperature Source Oral Oral Oral Pulse Rate 105 H Pulse Rate [Finger] 105 H Pulse Rate [Right Radial] 111 H 95 H Pulse Rhythm [Finger] Regular Pulse Rhythm [Right Radial] Regular Pulse Strength [Finger] Normal Pulse Strength [Right Radial] Normal Respiratory Rate 16 18 18 Respiratory Effort / Characteristics Non-Labored Non-Labored Spontaneous Respiratory Depth Normal Normal Respiratory Pattern Regular Regular Blood Pressure [Left Arm] 104/69 109/78 110/64 Blood Pressure [Right Arm] Blood Pressure Mean [Left Arm] 80 88 79 Blood Pressure Mean [Right Arm] Blood Pressure Position [Left Arm] Lying Lying Blood Pressure Position [Right Arm] Pulse Oximetry 93 93 95 Oxygen Delivery Method Room Air Room Air 09/16/18 07:45 09/16/18 11:42 09/16/18 15:18 Temperature 36.7 C 36.9 C 37.0 C Temperature Source Oral Oral Oral Pulse Rate Pulse Rate [Finger] 101 H 107 H Pulse Rate [Right Radial] 114 H Pulse Rhythm [Finger] Regular Pulse Rhythm [Right Radial] Pulse Strength [Finger] Normal Pulse Strength [Right Radial] Respiratory Rate 19 18 20 Respiratory Effort / Characteristics Non-Labored Spontaneous Respiratory Depth Normal Respiratory Pattern Regular Blood Pressure [Left Arm] 122/85 110/74 123/81 Blood Pressure [Right Arm] Blood Pressure Mean [Left Arm] 97 86 95 Blood Pressure Mean [Right Arm] Blood Pressure Position [Left Arm] Sitting Lying Lying Blood Pressure Position [Right Arm] Pulse Oximetry 94 93 92 Oxygen Delivery Method Room Air Room Air Room Air 09/16/18 16:00 09/16/18 18:55 Temperature 36.8 C Temperature Source Oral Pulse Rate 111 H Pulse Rate [Finger] Pulse Rate [Right Radial] 114 H Pulse Rhythm [Finger] Pulse Rhythm [Right Radial] Pulse Strength [Finger] Pulse Strength [Right Radial] Respiratory Rate 22 Respiratory Effort / Characteristics Non-Labored Respiratory Depth Normal Respiratory Pattern Regular Blood Pressure [Left Arm] Blood Pressure [Right Arm] 125/73 Blood Pressure Mean [Left Arm] Blood Pressure Mean [Right Arm] 90 Blood Pressure Position [Left Arm] Blood Pressure Position [Right Arm] Lying Pulse Oximetry 93 Oxygen Delivery Method Room Air Room Air GENERAL: alert, jaundiced, uncomfortable appearing, in no distress EYE EXAM: scleral icterus, normal conjunctiva, PERRL and EOM's grossly intact OROPHARYNX: no exudate, no erythema, lips, buccal mucosa, and tongue normal and mucous membranes are dry NECK: supple, no nuchal rigidity, no adenopathy, non-tender LUNGS: Clear to auscultation without wheezes, rhonchi or rales. Normal chest wall mechanics HEART: tachycardic, no murmurs, S1 normal and S2 normal ABDOMEN: abdomen distended, mild tympani to percussion mostly in the left, non- tender, normo-active bowel sounds, no masses, no rebound or guarding. No palpable hepatosplenomegaly. No caput medusa. BACK: Back is symmetrical on inspection and there is no deformity, no midline tenderness, no CVA tenderness. SKIN: Jaundiced. No rashes and no bruising, no petechiae. UPPER EXTREMITIES: upper extremities are grossly normal. FROM, nml pulses b/l. LOWER EXTREMITIES: No pitting edema. FROM, nml pulses b/l. : circumcised. Markedly edematous scrotum bilaterally, tender to palpation, no palpable testicular mass, mild erythema of the scrotum, no crepitus, no inguinal lymphadenopathy, no appearance of Tray. NEURO EXAM: Normal sensorium, cranial nerves II-XII grossly intact, normal speech, no gross weakness of arms, no gross weakness of legs. Gross sensation intact. Course 09: Past medical records reviewed. The patient was evaluated in room B10, and a complete history and physical examination were performed. 1144: I updated the patient on current results. 1200: Dr. Shira ALMEIDA was paged. 1203: I consulted Salma Knight PA-C: [facility] Hospitalist. She will reevaluate the patient for hospitalization. 1300: No return call yet from . Pt rechecked and stable appearing. HR still elevated but improved. Pt asking to eat. Consultations Consultation #1: I consulted Salma Knight PA-C: [facility] Hospitalist. She will reevaluate the patient for hospitalization. Time: 12:03 Administered Medications Folic Acid (Folvite) 1 mg PO QAM [facility] Stop: 10/15/18 16:59 Last Admin: 09/16/18 07:58 Dose: 1 mg Admin: 09/15/18 17:49 Dose: 1 mg Ceftriaxone Sodium 2,000 mg/ (Dextrose) 70 mls @ 100 mls/hr IV Q24H [facility]; Protocol Stop: 09/21/18 08:59 Last Infusion: 09/16/18 10:03 Dose: 0 mls/hr Admin: 09/16/18 09:17 Dose: 100 mls/hr Acetylcysteine 3,790 mg/ (Dextrose) 518.95 mls @ 125 mls/hr IV ONE ONE Stop: 09/16/18 22:09 Last Admin: 09/16/18 19:30 Dose: 125 mls/hr Prednisone (Prelone) 40 mg PO DAILY [facility] Stop: 10/16/18 08:59 Last Admin: 09/16/18 07:58 Dose: 40 mg Thiamine HCl (Vitamin B-1) 100 mg PO QAM [facility] Stop: 10/15/18 16:59 Last Admin: 09/16/18 07:58 Dose: 100 mg Admin: 09/15/18 17:49 Dose: 100 mg Discontinued Medications Sodium Chloride (Nss 1000ml) 1,000 mls @ 999 mls/hr IV .Q1H1M ONE Stop: 09/15/18 10:48 Last Infusion: 09/15/18 11:18 Dose: 0 mls/hr Admin: 09/15/18 10:15 Dose: 999 mls/hr Ceftriaxone Sodium (Rocephin) 1,000 mg in 50 mls @ 100 mls/hr IV NOW STA Stop: 09/15/18 11:33 Last Infusion: 09/15/18 12:36 Dose: 0 mls/hr Admin: 09/15/18 12:00 Dose: 100 mls/hr Sodium Chloride (Nss 1000ml) 1,000 mls @ 999 mls/hr IV .Q1H1M ONE Stop: 09/15/18 12:04 Last Infusion: 09/15/18 13:08 Dose: 0 mls/hr Admin: 09/15/18 12:00 Dose: 999 mls/hr Magnesium Sulfate/Dextrose (Magnesium Sulfate / D5w) 1 gm in 100 mls @ 100 mls/ hr IV Q1H [facility] Stop: 09/15/18 15:15 Last Infusion: 09/15/18 16:48 Dose: Infusion: 09/15/18 16:14 Dose: 0 mls/hr Admin: 09/15/18 15:14 Dose: 100 mls/hr Admin: 09/15/18 15:11 Dose: Not Given Phytonadione 10 mg/ Sodium (Chloride) 51 mls @ 102 mls/hr IV ONE ONE Stop: 09/15/18 14:29 Last Infusion: 09/15/18 14:31 Dose: 0 mls/hr Admin: 09/15/18 13:59 Dose: 102 mls/hr Albumin Human (Albumin 25%) 50 mls @ 50 mls/hr IV 1600,1700,1800,1900 [facility] Stop: 09/15/18 23:59 Last Admin: 09/15/18 19:39 Dose: 50 mls/hr Admin: 09/15/18 18:15 Dose: 50 mls/hr Admin: 09/15/18 17:48 Dose: 50 mls/hr Infusion: 09/15/18 16:47 Dose: 0 mls/hr Admin: 09/15/18 15:51 Dose: 50 mls/hr Ceftriaxone Sodium 1,000 mg/ (Dextrose) 60 mls @ 100 mls/hr IV NOW STA Stop: 09/15/18 17:26 Last Infusion: 09/15/18 18:04 Dose: 0 mls/hr Admin: 09/15/18 17:28 Dose: 100 mls/hr Phytonadione 10 mg/ Sodium (Chloride) 51 mls @ 102 mls/hr IV ONE ONE Stop: 09/16/18 10:14 Last Infusion: 09/16/18 10:34 Dose: 0 mls/hr Admin: 09/16/18 10:03 Dose: 102 mls/hr Albumin Human (Albumin 25%) 50 mls @ 50 mls/hr IV Q1H [facility] Stop: 09/16/18 14:59 Last Infusion: 09/16/18 15:04 Dose: 0 mls/hr Admin: 09/16/18 13:53 Dose: 50 mls/hr Infusion: 09/16/18 13:53 Dose: 50 mls/hr Admin: 09/16/18 12:58 Dose: 50 mls/hr Infusion: 09/16/18 12:58 Dose: 50 mls/hr Admin: 09/16/18 12:09 Dose: 50 mls/hr Infusion: 09/16/18 12:09 Dose: 50 mls/hr Admin: 09/16/18 11:19 Dose: 50 mls/hr Acetylcysteine 11,360 mg/ (Dextrose) 256.8 mls @ 200 mls/hr IV ONCE ONE Stop: 09/16/18 18:32 Last Infusion: 09/16/18 19:53 Dose: 0 mls/hr Admin: 09/16/18 18:09 Dose: 200 mls/hr Ioversol (Optiray 320 125ml) 215 ml IV ONCE PRN PRN Reason: Interaction Checking Stop: 09/19/18 11:02 Last Admin: 09/15/18 11:04 Dose: 215 ml Magnesium Sulfate/Dextrose (Magnesium Sulfate / D5w) Confirm Administered Dose 2 gm IV .STK-MED ONE Stop: 09/15/18 13:59 Last Admin: 09/15/18 15:11 Dose: 2 gm Prednisone (Prelone) 40 mg PO NOW ONE Stop: 09/15/18 16:01 Last Admin: 09/15/18 16:45 Dose: 40 mg Medical Decision Making Differential Diagnosis Differential diagnosis: Etiologies such as appendicitis, diverticulitis, PUD, biliary pathology, UTI, pancreatitis, obstruction, mesenteric ischemia, aortic pathology, infections, inflammatory bowel disease, renal colic, torsion, mass, infection, hernia, hydrocele, epididymitis, trauma, intra-abdominal process as well as others were considered. Medical Records Attestation: I reviewed the patient's medical records. Home Medications Current Medication List: was personally reviewed by me Laboratory Data Attestation: I reviewed the patient's lab results. Result diagrams: 09/16/18 05:57 09/16/18 06:00 Lab Results 09/15/18 09/15/18 09/15/18 Range/Units 09:30 09:30 09:35 WBC (4.8-10.8) K/uL RBC (4.7-6.1) M/uL Hgb (14.0-18.0) g/dL Hct (42-52) % MCV (80-100) fL MCH (25-34) pg MCHC (32-36) g/dL RDW Std Deviation (36.4-46.3) fL RDW Coeff of [place] (11.5-14.5) % Plt Count (130-400) K/uL MPV (7.4-10.4) fL Immature Gran % (Auto) % Neut % (Auto) % Lymph % (Auto) % [place] % (Auto) % Eos % (Auto) % Baso % (Auto) % Immature Gran # (Auto) (0.00-0.02) K/uL Neut # (Auto) (1.4-6.5) K/uL Lymph # (Auto) (1.2-3.4) K/uL [place] # (Auto) (0.11-0.59) K/uL Eos # (Auto) (0-0.5) K/uL Baso # (Auto) (0-0.2) K/uL PT (9.0-12.0) Seconds INR (0.9-1.1) Sodium (136-145) mmol/L Potassium (3.5-5.1) mmol/L Chloride (98-107) mmol/L Carbon Dioxide (21-32) mmol/L Anion Gap (3-11) BUN (7-18) mg/dl Creatinine (0.6-1.4) mg/dl Est Cr Clr Drug Dosing Est GFR ( Amer) Est GFR (Non-Af Amer) BUN/Creatinine Ratio (10-20) Glucose (70-99) mg/dl Osmolality (280-300) mOsm/kg POC Lactic Acid Micky (0.90-1.70) mmol/L Lactate (0.4-2.0) mmol/L Calcium (8.5-10.1) mg/dl Magnesium (1.8-2.4) mg/dl Iron 80 (35-175) mcg/dl TIBC 124 L (250-450) mcg/dl Ferritin 1652.2 H (8-388) ng/ml Total Bilirubin (0.2-1) mg/dl Direct Bilirubin (0-0.2) mg/dl AST (15-37) U/L ALT (12-78) U/L Alkaline Phosphatase (45-117) U/L Troponin I < 0.015 (0-0.045) ng/ml Total Protein (6.4-8.2) gm/dl Albumin (3.4-5.0) gm/dl Globulin (2.5-4.0) gm/dl Albumin/Globulin Ratio (0.9-2) Lipase (73-393) U/L Folate (>5.38) ng/ml Urine Color Urine Appearance (Clear) Urine pH Ur Specific [place] (1.000-1.060) Urine Protein (Negative) Urine Glucose (UA) (Negative) Urine Ketones (Negative) Urine Blood (Negative) Urine Nitrite (Negative) Urine Bilirubin (Negative) Urine Urobilinogen (Negative) Ur Leukocyte Esterase (Negative) Urine RBC (0-4) /hpf Urine WBC (0-5) /hpf Ur Epithelial Cells (0-5) /lpf Other Crystals (None Prsent) Urine Bacteria (Negative) Hyaline Casts (0-5) /lpf Granular Casts (0) /lpf WBC Casts (0) /lpf Urine Mucus (None Prsent) Urine Osmolality Ur Random Sodium Peritoneal Color Peritoneal Appearance Peritoneal WBC (0-300) /ul Peritoneal RBC /uL Mononuclear WBCs % % Polynuclear WBCs % % Peritoneal Tot Protein g/dl Peritoneal Albumin g/dl Acetaminophen Ethyl Alcohol mg/dL (0-3) mg/dl Hepatitis A IgM Ab (NON-REACTIVE) Hep Bs Antigen Neg (Neg) Hep B Core IgM Ab (NON-REACTIVE) Hepatitis C Antibody Neg (Neg) 09/15/18 09/15/18 09/15/18 Range/Units 09:35 09:35 09:35 WBC 17.30 H (4.8-10.8) K/uL RBC 3.89 L (4.7-6.1) M/uL Hgb 13.3 L (14.0-18.0) g/dL Hct 37.1 L (42-52) % MCV 95.4 (80-100) fL MCH 34.2 H (25-34) pg MCHC 35.8 (32-36) g/dL RDW Std Deviation 48.6 H (36.4-46.3) fL RDW Coeff of [place] 14.2 (11.5-14.5) % Plt Count 240 (130-400) K/uL MPV 9.7 (7.4-10.4) fL Immature Gran % (Auto) 0.2 % Neut % (Auto) 81.5 % Lymph % (Auto) 4.6 % [place] % (Auto) 13.0 % Eos % (Auto) 0.5 % Baso % (Auto) 0.2 % Immature Gran # (Auto) 0.03 H (0.00-0.02) K/uL Neut # (Auto) 14.10 H (1.4-6.5) K/uL Lymph # (Auto) 0.80 L (1.2-3.4) K/uL [place] # (Auto) 2.25 H (0.11-0.59) K/uL Eos # (Auto) 0.09 (0-0.5) K/uL Baso # (Auto) 0.03 (0-0.2) K/uL PT (9.0-12.0) Seconds INR (0.9-1.1) Sodium (136-145) mmol/L Potassium (3.5-5.1) mmol/L Chloride (98-107) mmol/L Carbon Dioxide (21-32) mmol/L Anion Gap (3-11) BUN (7-18) mg/dl Creatinine (0.6-1.4) mg/dl Est Cr Clr Drug Dosing Est GFR ( Amer) Est GFR (Non-Af Amer) BUN/Creatinine Ratio (10-20) Glucose (70-99) mg/dl Osmolality (280-300) mOsm/kg POC Lactic Acid Micky (0.90-1.70) mmol/L Lactate (0.4-2.0) mmol/L Calcium (8.5-10.1) mg/dl Magnesium (1.8-2.4) mg/dl Iron (35-175) mcg/dl TIBC (250-450) mcg/dl Ferritin (8-388) ng/ml Total Bilirubin (0.2-1) mg/dl Direct Bilirubin (0-0.2) mg/dl AST (15-37) U/L ALT (12-78) U/L Alkaline Phosphatase (45-117) U/L Troponin I (0-0.045) ng/ml Total Protein (6.4-8.2) gm/dl Albumin (3.4-5.0) gm/dl Globulin (2.5-4.0) gm/dl Albumin/Globulin Ratio (0.9-2) Lipase (73-393) U/L Folate (>5.38) ng/ml Urine Color Urine Appearance (Clear) Urine pH Ur Specific [place] (1.000-1.060) Urine Protein (Negative) Urine Glucose (UA) (Negative) Urine Ketones (Negative) Urine Blood (Negative) Urine Nitrite (Negative) Urine Bilirubin (Negative) Urine Urobilinogen (Negative) Ur Leukocyte Esterase (Negative) Urine RBC (0-4) /hpf Urine WBC (0-5) /hpf Ur Epithelial Cells (0-5) /lpf Other Crystals (None Prsent) Urine Bacteria (Negative) Hyaline Casts (0-5) /lpf Granular Casts (0) /lpf WBC Casts (0) /lpf Urine Mucus (None Prsent) Urine Osmolality Ur Random Sodium Peritoneal Color Peritoneal Appearance Peritoneal WBC (0-300) /ul Peritoneal RBC /uL Mononuclear WBCs % % Polynuclear WBCs % % Peritoneal Tot Protein g/dl Peritoneal Albumin g/dl Acetaminophen Cancelled Ethyl Alcohol mg/dL (0-3) mg/dl Hepatitis A IgM Ab NON-REACTIVE (NON-REACTIVE) Hep Bs Antigen (Neg) Hep B Core IgM Ab NON-REACTIVE (NON-REACTIVE) Hepatitis C Antibody (Neg) 09/15/18 09/15/18 09/15/18 Range/Units 09:35 09:35 09:35 WBC (4.8-10.8) K/uL RBC (4.7-6.1) M/uL Hgb (14.0-18.0) g/dL Hct (42-52) % MCV (80-100) fL MCH (25-34) pg MCHC (32-36) g/dL RDW Std Deviation (36.4-46.3) fL RDW Coeff of [place] (11.5-14.5) % Plt Count (130-400) K/uL MPV (7.4-10.4) fL Immature Gran % (Auto) % Neut % (Auto) % Lymph % (Auto) % [place] % (Auto) % Eos % (Auto) % Baso % (Auto) % Immature Gran # (Auto) (0.00-0.02) K/uL Neut # (Auto) (1.4-6.5) K/uL Lymph # (Auto) (1.2-3.4) K/uL [place] # (Auto) (0.11-0.59) K/uL Eos # (Auto) (0-0.5) K/uL Baso # (Auto) (0-0.2) K/uL PT 24.0 H (9.0-12.0) Seconds INR 2.5 H (0.9-1.1) Sodium 123 L (136-145) mmol/L Potassium 3.5 (3.5-5.1) mmol/L Chloride 85 L (98-107) mmol/L Carbon Dioxide 29 (21-32) mmol/L Anion Gap 9.0 (3-11) BUN 8 (7-18) mg/dl Creatinine 1.35 (0.6-1.4) mg/dl Est Cr Clr Drug Dosing Not Reportable Est GFR ( Amer) 81.1 Est GFR (Non-Af Amer) 70.0 BUN/Creatinine Ratio 5.7 L (10-20) Glucose 87 (70-99) mg/dl Osmolality (280-300) mOsm/kg POC Lactic Acid Micky (0.90-1.70) mmol/L Lactate (0.4-2.0) mmol/L Calcium 7.8 L (8.5-10.1) mg/dl Magnesium 1.6 L (1.8-2.4) mg/dl Iron (35-175) mcg/dl TIBC (250-450) mcg/dl Ferritin (8-388) ng/ml Total Bilirubin 17.0 H (0.2-1) mg/dl Direct Bilirubin 11.3 H (0-0.2) mg/dl AST 376 H (15-37) U/L ALT 142 H (12-78) U/L Alkaline Phosphatase 238 H (45-117) U/L Troponin I (0-0.045) ng/ml Total Protein 6.0 L (6.4-8.2) gm/dl Albumin 2.4 L (3.4-5.0) gm/dl Globulin (2.5-4.0) gm/dl Albumin/Globulin Ratio (0.9-2) Lipase 173 (73-393) U/L Folate (>5.38) ng/ml Urine Color Brown Urine Appearance Cloudy H (Clear) Urine pH Not Reportable Ur Specific [place] 1.036 (1.000-1.060) Urine Protein (Negative) Urine Glucose (UA) (Negative) Urine Ketones (Negative) Urine Blood (Negative) Urine Nitrite (Negative) Urine Bilirubin (Negative) Urine Urobilinogen (Negative) Ur Leukocyte Esterase (Negative) Urine RBC 0-4 (0-4) /hpf Urine WBC >30 H (0-5) /hpf Ur Epithelial Cells 5-10 H (0-5) /lpf Other Crystals [place] (None Prsent) Urine Bacteria 2+ H (Negative) Hyaline Casts >30 H (0-5) /lpf Granular Casts 1-5 H (0) /lpf WBC Casts 1-5 H (0) /lpf Urine Mucus Present H (None Prsent) Urine Osmolality Ur Random Sodium Peritoneal Color Peritoneal Appearance Peritoneal WBC (0-300) /ul Peritoneal RBC /uL Mononuclear WBCs % % Polynuclear WBCs % % Peritoneal Tot Protein g/dl Peritoneal Albumin g/dl Acetaminophen Ethyl Alcohol mg/dL (0-3) mg/dl Hepatitis A IgM Ab (NON-REACTIVE) Hep Bs Antigen (Neg) Hep B Core IgM Ab (NON-REACTIVE) Hepatitis C Antibody (Neg) 09/15/18 09/15/18 09/15/18 Range/Units 09:35 09:56 10:07 WBC (4.8-10.8) K/uL RBC (4.7-6.1) M/uL Hgb (14.0-18.0) g/dL Hct (42-52) % MCV (80-100) fL MCH (25-34) pg MCHC (32-36) g/dL RDW Std Deviation (36.4-46.3) fL RDW Coeff of [place] (11.5-14.5) % Plt Count (130-400) K/uL MPV (7.4-10.4) fL Immature Gran % (Auto) % Neut % (Auto) % Lymph % (Auto) % [place] % (Auto) % Eos % (Auto) % Baso % (Auto) % Immature Gran # (Auto) (0.00-0.02) K/uL Neut # (Auto) (1.4-6.5) K/uL Lymph # (Auto) (1.2-3.4) K/uL [place] # (Auto) (0.11-0.59) K/uL Eos # (Auto) (0-0.5) K/uL Baso # (Auto) (0-0.2) K/uL PT (9.0-12.0) Seconds INR (0.9-1.1) Sodium (136-145) mmol/L Potassium (3.5-5.1) mmol/L Chloride (98-107) mmol/L Carbon Dioxide (21-32) mmol/L Anion Gap (3-11) BUN (7-18) mg/dl Creatinine (0.6-1.4) mg/dl Est Cr Clr Drug Dosing Est GFR ( Amer) Est GFR (Non-Af Amer) BUN/Creatinine Ratio (10-20) Glucose (70-99) mg/dl Osmolality (280-300) mOsm/kg POC Lactic Acid Micky 4.03 H (0.90-1.70) mmol/L Lactate 4.1 H* (0.4-2.0) mmol/L Calcium (8.5-10.1) mg/dl Magnesium (1.8-2.4) mg/dl Iron (35-175) mcg/dl TIBC (250-450) mcg/dl Ferritin (8-388) ng/ml Total Bilirubin (0.2-1) mg/dl Direct Bilirubin (0-0.2) mg/dl AST (15-37) U/L ALT (12-78) U/L Alkaline Phosphatase (45-117) U/L Troponin I (0-0.045) ng/ml Total Protein (6.4-8.2) gm/dl Albumin (3.4-5.0) gm/dl Globulin (2.5-4.0) gm/dl Albumin/Globulin Ratio (0.9-2) Lipase (73-393) U/L Folate (>5.38) ng/ml Urine Color Urine Appearance (Clear) Urine pH Ur Specific [place] (1.000-1.060) Urine Protein (Negative) Urine Glucose (UA) (Negative) Urine Ketones (Negative) Urine Blood (Negative) Urine Nitrite (Negative) Urine Bilirubin (Negative) Urine Urobilinogen (Negative) Ur Leukocyte Esterase (Negative) Urine RBC (0-4) /hpf Urine WBC (0-5) /hpf Ur Epithelial Cells (0-5) /lpf Other Crystals (None Prsent) Urine Bacteria (Negative) Hyaline Casts (0-5) /lpf Granular Casts (0) /lpf WBC Casts (0) /lpf Urine Mucus (None Prsent) Urine Osmolality Ur Random Sodium Peritoneal Color Peritoneal Appearance Peritoneal WBC (0-300) /ul Peritoneal RBC /uL Mononuclear WBCs % % Polynuclear WBCs % % Peritoneal Tot Protein g/dl Peritoneal Albumin g/dl Acetaminophen Ethyl Alcohol mg/dL < 3.0 (0-3) mg/dl Hepatitis A IgM Ab (NON-REACTIVE) Hep Bs Antigen (Neg) Hep B Core IgM Ab (NON-REACTIVE) Hepatitis C Antibody (Neg) 09/15/18 09/15/18 09/15/18 Range/Units 11:58 13:30 14:35 WBC (4.8-10.8) K/uL RBC (4.7-6.1) M/uL Hgb (14.0-18.0) g/dL Hct (42-52) % MCV (80-100) fL MCH (25-34) pg MCHC (32-36) g/dL RDW Std Deviation (36.4-46.3) fL RDW Coeff of [place] (11.5-14.5) % Plt Count (130-400) K/uL MPV (7.4-10.4) fL Immature Gran % (Auto) % Neut % (Auto) % Lymph % (Auto) % [place] % (Auto) % Eos % (Auto) % Baso % (Auto) % Immature Gran # (Auto) (0.00-0.02) K/uL Neut # (Auto) (1.4-6.5) K/uL Lymph # (Auto) (1.2-3.4) K/uL [place] # (Auto) (0.11-0.59) K/uL Eos # (Auto) (0-0.5) K/uL Baso # (Auto) (0-0.2) K/uL PT (9.0-12.0) Seconds INR (0.9-1.1) Sodium (136-145) mmol/L Potassium (3.5-5.1) mmol/L Chloride (98-107) mmol/L Carbon Dioxide (21-32) mmol/L Anion Gap (3-11) BUN (7-18) mg/dl Creatinine (0.6-1.4) mg/dl Est Cr Clr Drug Dosing Est GFR ( Amer) Est GFR (Non-Af Amer) BUN/Creatinine Ratio (10-20) Glucose (70-99) mg/dl Osmolality (280-300) mOsm/kg POC Lactic Acid Micky 3.10 H (0.90-1.70) mmol/L Lactate (0.4-2.0) mmol/L Calcium (8.5-10.1) mg/dl Magnesium (1.8-2.4) mg/dl Iron (35-175) mcg/dl TIBC (250-450) mcg/dl Ferritin (8-388) ng/ml Total Bilirubin (0.2-1) mg/dl Direct Bilirubin (0-0.2) mg/dl AST (15-37) U/L ALT (12-78) U/L Alkaline Phosphatase (45-117) U/L Troponin I (0-0.045) ng/ml Total Protein (6.4-8.2) gm/dl Albumin (3.4-5.0) gm/dl Globulin (2.5-4.0) gm/dl Albumin/Globulin Ratio (0.9-2) Lipase (73-393) U/L Folate (>5.38) ng/ml Urine Color Urine Appearance (Clear) Urine pH Ur Specific [place] (1.000-1.060) Urine Protein (Negative) Urine Glucose (UA) (Negative) Urine Ketones (Negative) Urine Blood (Negative) Urine Nitrite (Negative) Urine Bilirubin (Negative) Urine Urobilinogen (Negative) Ur Leukocyte Esterase (Negative) Urine RBC (0-4) /hpf Urine WBC (0-5) /hpf Ur Epithelial Cells (0-5) /lpf Other Crystals (None Prsent) Urine Bacteria (Negative) Hyaline Casts (0-5) /lpf Granular Casts (0) /lpf WBC Casts (0) /lpf Urine Mucus (None Prsent) Urine Osmolality Cancelled Ur Random Sodium Peritoneal Color Peritoneal Appearance Peritoneal WBC (0-300) /ul Peritoneal RBC /uL Mononuclear WBCs % % Polynuclear WBCs % % Peritoneal Tot Protein g/dl Peritoneal Albumin < 0.6 g/dl Acetaminophen Ethyl Alcohol mg/dL (0-3) mg/dl Hepatitis A IgM Ab (NON-REACTIVE) Hep Bs Antigen (Neg) Hep B Core IgM Ab (NON-REACTIVE) Hepatitis C Antibody (Neg) 09/15/18 09/15/18 09/15/18 Range/Units 14:35 15:22 15:22 WBC (4.8-10.8) K/uL RBC (4.7-6.1) M/uL Hgb (14.0-18.0) g/dL Hct (42-52) % MCV (80-100) fL MCH (25-34) pg MCHC (32-36) g/dL RDW Std Deviation (36.4-46.3) fL RDW Coeff of [place] (11.5-14.5) % Plt Count (130-400) K/uL MPV (7.4-10.4) fL Immature Gran % (Auto) % Neut % (Auto) % Lymph % (Auto) % [place] % (Auto) % Eos % (Auto) % Baso % (Auto) % Immature Gran # (Auto) (0.00-0.02) K/uL Neut # (Auto) (1.4-6.5) K/uL Lymph # (Auto) (1.2-3.4) K/uL [place] # (Auto) (0.11-0.59) K/uL Eos # (Auto) (0-0.5) K/uL Baso # (Auto) (0-0.2) K/uL PT (9.0-12.0) Seconds INR (0.9-1.1) Sodium (136-145) mmol/L Potassium (3.5-5.1) mmol/L Chloride (98-107) mmol/L Carbon Dioxide (21-32) mmol/L Anion Gap (3-11) BUN (7-18) mg/dl Creatinine (0.6-1.4) mg/dl Est Cr Clr Drug Dosing Est GFR ( Amer) Est GFR (Non-Af Amer) BUN/Creatinine Ratio (10-20) Glucose (70-99) mg/dl Osmolality (280-300) mOsm/kg POC Lactic Acid Micky (0.90-1.70) mmol/L Lactate (0.4-2.0) mmol/L Calcium (8.5-10.1) mg/dl Magnesium (1.8-2.4) mg/dl Iron (35-175) mcg/dl TIBC (250-450) mcg/dl Ferritin (8-388) ng/ml Total Bilirubin (0.2-1) mg/dl Direct Bilirubin (0-0.2) mg/dl AST (15-37) U/L ALT (12-78) U/L Alkaline Phosphatase (45-117) U/L Troponin I (0-0.045) ng/ml Total Protein (6.4-8.2) gm/dl Albumin (3.4-5.0) gm/dl Globulin (2.5-4.0) gm/dl Albumin/Globulin Ratio (0.9-2) Lipase (73-393) U/L Folate (>5.38) ng/ml Urine Color Urine Appearance (Clear) Urine pH Ur Specific [place] (1.000-1.060) Urine Protein (Negative) Urine Glucose (UA) (Negative) Urine Ketones (Negative) Urine Blood (Negative) Urine Nitrite (Negative) Urine Bilirubin (Negative) Urine Urobilinogen (Negative) Ur Leukocyte Esterase (Negative) Urine RBC (0-4) /hpf Urine WBC (0-5) /hpf Ur Epithelial Cells (0-5) /lpf Other Crystals (None Prsent) Urine Bacteria (Negative) Hyaline Casts (0-5) /lpf Granular Casts (0) /lpf WBC Casts (0) /lpf Urine Mucus (None Prsent) Urine Osmolality Ur Random Sodium Cancelled Peritoneal Color YELLOW Peritoneal Appearance CLEAR Peritoneal WBC 109 (0-300) /ul Peritoneal RBC < 3000 /uL Mononuclear WBCs % 78.5 % Polynuclear WBCs % 21.5 % Peritoneal Tot Protein 0.6 g/dl Peritoneal Albumin g/dl Acetaminophen Ethyl Alcohol mg/dL (0-3) mg/dl Hepatitis A IgM Ab (NON-REACTIVE) Hep Bs Antigen (Neg) Hep B Core IgM Ab (NON-REACTIVE) Hepatitis C Antibody (Neg) 09/15/18 09/15/18 09/15/18 Range/Units 15:29 17:03 17:03 WBC (4.8-10.8) K/uL RBC (4.7-6.1) M/uL Hgb (14.0-18.0) g/dL Hct (42-52) % MCV (80-100) fL MCH (25-34) pg MCHC (32-36) g/dL RDW Std Deviation (36.4-46.3) fL RDW Coeff of [place] (11.5-14.5) % Plt Count (130-400) K/uL MPV (7.4-10.4) fL Immature Gran % (Auto) % Neut % (Auto) % Lymph % (Auto) % [place] % (Auto) % Eos % (Auto) % Baso % (Auto) % Immature Gran # (Auto) (0.00-0.02) K/uL Neut # (Auto) (1.4-6.5) K/uL Lymph # (Auto) (1.2-3.4) K/uL [place] # (Auto) (0.11-0.59) K/uL Eos # (Auto) (0-0.5) K/uL Baso # (Auto) (0-0.2) K/uL PT (9.0-12.0) Seconds INR (0.9-1.1) Sodium (136-145) mmol/L Potassium TNP (3.5-5.1) mmol/L Chloride 88 L (98-107) mmol/L Carbon Dioxide 24 (21-32) mmol/L Anion Gap 10.0 (3-11) BUN 7 (7-18) mg/dl Creatinine 1.22 (0.6-1.4) mg/dl Est Cr Clr Drug Dosing 91.4 Est GFR ( Amer) 91.6 Est GFR (Non-Af Amer) 79.1 BUN/Creatinine Ratio 5.5 L (10-20) Glucose 97 (70-99) mg/dl Osmolality 263 L (280-300) mOsm/kg POC Lactic Acid Micky (0.90-1.70) mmol/L Lactate (0.4-2.0) mmol/L Calcium 7.1 L (8.5-10.1) mg/dl Magnesium 1.9 (1.8-2.4) mg/dl Iron (35-175) mcg/dl TIBC (250-450) mcg/dl Ferritin (8-388) ng/ml Total Bilirubin 15.1 H (0.2-1) mg/dl Direct Bilirubin (0-0.2) mg/dl AST 315 H (15-37) U/L ALT 114 H (12-78) U/L Alkaline Phosphatase 185 H (45-117) U/L Troponin I 0.019 (0-0.045) ng/ml Total Protein 5.2 L (6.4-8.2) gm/dl Albumin 2.1 L (3.4-5.0) gm/dl Globulin 3.1 (2.5-4.0) gm/dl Albumin/Globulin Ratio 0.7 L (0.9-2) Lipase (73-393) U/L Folate 2.30 L (>5.38) ng/ml Urine Color Urine Appearance (Clear) Urine pH Ur Specific [place] (1.000-1.060) Urine Protein (Negative) Urine Glucose (UA) (Negative) Urine Ketones (Negative) Urine Blood (Negative) Urine Nitrite (Negative) Urine Bilirubin (Negative) Urine Urobilinogen (Negative) Ur Leukocyte Esterase (Negative) Urine RBC (0-4) /hpf Urine WBC (0-5) /hpf Ur Epithelial Cells (0-5) /lpf Other Crystals (None Prsent) Urine Bacteria (Negative) Hyaline Casts (0-5) /lpf Granular Casts (0) /lpf WBC Casts (0) /lpf Urine Mucus (None Prsent) Urine Osmolality Ur Random Sodium Peritoneal Color Peritoneal Appearance Peritoneal WBC (0-300) /ul Peritoneal RBC /uL Mononuclear WBCs % % Polynuclear WBCs % % Peritoneal Tot Protein g/dl Peritoneal Albumin g/dl Acetaminophen Ethyl Alcohol mg/dL (0-3) mg/dl Hepatitis A IgM Ab (NON-REACTIVE) Hep Bs Antigen (Neg) Hep B Core IgM Ab (NON-REACTIVE) Hepatitis C Antibody (Neg) 09/15/18 09/15/18 09/15/18 Range/Units 17:03 21:33 22:00 WBC (4.8-10.8) K/uL RBC (4.7-6.1) M/uL Hgb (14.0-18.0) g/dL Hct (42-52) % MCV (80-100) fL MCH (25-34) pg MCHC (32-36) g/dL RDW Std Deviation (36.4-46.3) fL RDW Coeff of [place] (11.5-14.5) % Plt Count (130-400) K/uL MPV (7.4-10.4) fL Immature Gran % (Auto) % Neut % (Auto) % Lymph % (Auto) % [place] % (Auto) % Eos % (Auto) % Baso % (Auto) % Immature Gran # (Auto) (0.00-0.02) K/uL Neut # (Auto) (1.4-6.5) K/uL Lymph # (Auto) (1.2-3.4) K/uL [place] # (Auto) (0.11-0.59) K/uL Eos # (Auto) (0-0.5) K/uL Baso # (Auto) (0-0.2) K/uL PT (9.0-12.0) Seconds INR (0.9-1.1) Sodium (136-145) mmol/L Potassium (3.5-5.1) mmol/L Chloride (98-107) mmol/L Carbon Dioxide (21-32) mmol/L Anion Gap (3-11) BUN (7-18) mg/dl Creatinine (0.6-1.4) mg/dl Est Cr Clr Drug Dosing Est GFR ( Amer) Est GFR (Non-Af Amer) BUN/Creatinine Ratio (10-20) Glucose (70-99) mg/dl Osmolality (280-300) mOsm/kg POC Lactic Acid Micky (0.90-1.70) mmol/L Lactate 4.6 H* 4.0 H* (0.4-2.0) mmol/L Calcium (8.5-10.1) mg/dl Magnesium (1.8-2.4) mg/dl Iron (35-175) mcg/dl TIBC (250-450) mcg/dl Ferritin (8-388) ng/ml Total Bilirubin (0.2-1) mg/dl Direct Bilirubin (0-0.2) mg/dl AST (15-37) U/L ALT (12-78) U/L Alkaline Phosphatase (45-117) U/L Troponin I (0-0.045) ng/ml Total Protein (6.4-8.2) gm/dl Albumin (3.4-5.0) gm/dl Globulin (2.5-4.0) gm/dl Albumin/Globulin Ratio (0.9-2) Lipase (73-393) U/L Folate (>5.38) ng/ml Urine Color Urine Appearance (Clear) Urine pH Ur Specific [place] (1.000-1.060) Urine Protein (Negative) Urine Glucose (UA) (Negative) Urine Ketones (Negative) Urine Blood (Negative) Urine Nitrite (Negative) Urine Bilirubin (Negative) Urine Urobilinogen (Negative) Ur Leukocyte Esterase (Negative) Urine RBC (0-4) /hpf Urine WBC (0-5) /hpf Ur Epithelial Cells (0-5) /lpf Other Crystals (None Prsent) Urine Bacteria (Negative) Hyaline Casts (0-5) /lpf Granular Casts (0) /lpf WBC Casts (0) /lpf Urine Mucus (None Prsent) Urine Osmolality 666 Ur Random Sodium Peritoneal Color Peritoneal Appearance Peritoneal WBC (0-300) /ul Peritoneal RBC /uL Mononuclear WBCs % % Polynuclear WBCs % % Peritoneal Tot Protein g/dl Peritoneal Albumin g/dl Acetaminophen Ethyl Alcohol mg/dL (0-3) mg/dl Hepatitis A IgM Ab (NON-REACTIVE) Hep Bs Antigen (Neg) Hep B Core IgM Ab (NON-REACTIVE) Hepatitis C Antibody (Neg) 09/15/18 09/16/18 09/16/18 Range/Units 22:00 05:57 05:57 WBC 9.90 (4.8-10.8) K/uL RBC 3.78 L (4.7-6.1) M/uL Hgb 12.9 L (14.0-18.0) g/dL Hct 36.4 L (42-52) % MCV 96.3 (80-100) fL MCH 34.1 H (25-34) pg MCHC 35.4 (32-36) g/dL RDW Std Deviation 51.1 H (36.4-46.3) fL RDW Coeff of [place] 14.5 (11.5-14.5) % Plt Count 157 (130-400) K/uL MPV 9.8 (7.4-10.4) fL Immature Gran % (Auto) 0.3 % Neut % (Auto) 88.2 % Lymph % (Auto) 4.4 % [place] % (Auto) 7.1 % Eos % (Auto) 0.0 % Baso % (Auto) 0.0 % Immature Gran # (Auto) 0.03 H (0.00-0.02) K/uL Neut # (Auto) 8.73 H (1.4-6.5) K/uL Lymph # (Auto) 0.44 L (1.2-3.4) K/uL [place] # (Auto) 0.70 H (0.11-0.59) K/uL Eos # (Auto) 0.00 (0-0.5) K/uL Baso # (Auto) 0.00 (0-0.2) K/uL PT 19.9 H (9.0-12.0) Seconds INR 2.0 H (0.9-1.1) Sodium (136-145) mmol/L Potassium (3.5-5.1) mmol/L Chloride (98-107) mmol/L Carbon Dioxide (21-32) mmol/L Anion Gap (3-11) BUN (7-18) mg/dl Creatinine (0.6-1.4) mg/dl Est Cr Clr Drug Dosing Est GFR ( Amer) Est GFR (Non-Af Amer) BUN/Creatinine Ratio (10-20) Glucose (70-99) mg/dl Osmolality (280-300) mOsm/kg POC Lactic Acid Micky (0.90-1.70) mmol/L Lactate (0.4-2.0) mmol/L Calcium (8.5-10.1) mg/dl Magnesium (1.8-2.4) mg/dl Iron (35-175) mcg/dl TIBC (250-450) mcg/dl Ferritin (8-388) ng/ml Total Bilirubin (0.2-1) mg/dl Direct Bilirubin (0-0.2) mg/dl AST (15-37) U/L ALT (12-78) U/L Alkaline Phosphatase (45-117) U/L Troponin I (0-0.045) ng/ml Total Protein (6.4-8.2) gm/dl Albumin (3.4-5.0) gm/dl Globulin (2.5-4.0) gm/dl Albumin/Globulin Ratio (0.9-2) Lipase (73-393) U/L Folate (>5.38) ng/ml Urine Color Urine Appearance (Clear) Urine pH Ur Specific [place] (1.000-1.060) Urine Protein (Negative) Urine Glucose (UA) (Negative) Urine Ketones (Negative) Urine Blood (Negative) Urine Nitrite (Negative) Urine Bilirubin (Negative) Urine Urobilinogen (Negative) Ur Leukocyte Esterase (Negative) Urine RBC (0-4) /hpf Urine WBC (0-5) /hpf Ur Epithelial Cells (0-5) /lpf Other Crystals (None Prsent) Urine Bacteria (Negative) Hyaline Casts (0-5) /lpf Granular Casts (0) /lpf WBC Casts (0) /lpf Urine Mucus (None Prsent) Urine Osmolality Ur Random Sodium 8 Peritoneal Color Peritoneal Appearance Peritoneal WBC (0-300) /ul Peritoneal RBC /uL Mononuclear WBCs % % Polynuclear WBCs % % Peritoneal Tot Protein g/dl Peritoneal Albumin g/dl Acetaminophen Ethyl Alcohol mg/dL (0-3) mg/dl Hepatitis A IgM Ab (NON-REACTIVE) Hep Bs Antigen (Neg) Hep B Core IgM Ab (NON-REACTIVE) Hepatitis C Antibody (Neg) 09/16/18 Range/Units 06:00 WBC (4.8-10.8) K/uL RBC (4.7-6.1) M/uL Hgb (14.0-18.0) g/dL Hct (42-52) % MCV (80-100) fL MCH (25-34) pg MCHC (32-36) g/dL RDW Std Deviation (36.4-46.3) fL RDW Coeff of [place] (11.5-14.5) % Plt Count (130-400) K/uL MPV (7.4-10.4) fL Immature Gran % (Auto) % Neut % (Auto) % Lymph % (Auto) % [place] % (Auto) % Eos % (Auto) % Baso % (Auto) % Immature Gran # (Auto) (0.00-0.02) K/uL Neut # (Auto) (1.4-6.5) K/uL Lymph # (Auto) (1.2-3.4) K/uL [place] # (Auto) (0.11-0.59) K/uL Eos # (Auto) (0-0.5) K/uL Baso # (Auto) (0-0.2) K/uL PT (9.0-12.0) Seconds INR (0.9-1.1) Sodium 125 L (136-145) mmol/L Potassium 4.2 D (3.5-5.1) mmol/L Chloride 88 L (98-107) mmol/L Carbon Dioxide 28 (21-32) mmol/L Anion Gap 9.0 (3-11) BUN 8 (7-18) mg/dl Creatinine 1.28 (0.6-1.4) mg/dl Est Cr Clr Drug Dosing 87.1 Est GFR ( Amer) 86.5 Est GFR (Non-Af Amer) 74.6 BUN/Creatinine Ratio 6.5 L (10-20) Glucose 112 H (70-99) mg/dl Osmolality (280-300) mOsm/kg POC Lactic Acid Micky (0.90-1.70) mmol/L Lactate (0.4-2.0) mmol/L Calcium 8.6 D (8.5-10.1) mg/dl Magnesium (1.8-2.4) mg/dl Iron (35-175) mcg/dl TIBC (250-450) mcg/dl Ferritin (8-388) ng/ml Total Bilirubin 18.6 H (0.2-1) mg/dl Direct Bilirubin (0-0.2) mg/dl AST 305 H (15-37) U/L ALT 119 H (12-78) U/L Alkaline Phosphatase 193 H (45-117) U/L Troponin I (0-0.045) ng/ml Total Protein 6.3 L D (6.4-8.2) gm/dl Albumin 2.8 L (3.4-5.0) gm/dl Globulin 3.5 (2.5-4.0) gm/dl Albumin/Globulin Ratio 0.8 L (0.9-2) Lipase (73-393) U/L Folate (>5.38) ng/ml Urine Color Urine Appearance (Clear) Urine pH Ur Specific [place] (1.000-1.060) Urine Protein (Negative) Urine Glucose (UA) (Negative) Urine Ketones (Negative) Urine Blood (Negative) Urine Nitrite (Negative) Urine Bilirubin (Negative) Urine Urobilinogen (Negative) Ur Leukocyte Esterase (Negative) Urine RBC (0-4) /hpf Urine WBC (0-5) /hpf Ur Epithelial Cells (0-5) /lpf Other Crystals (None Prsent) Urine Bacteria (Negative) Hyaline Casts (0-5) /lpf Granular Casts (0) /lpf WBC Casts (0) /lpf Urine Mucus (None Prsent) Urine Osmolality Ur Random Sodium Peritoneal Color Peritoneal Appearance Peritoneal WBC (0-300) /ul Peritoneal RBC /uL Mononuclear WBCs % % Polynuclear WBCs % % Peritoneal Tot Protein g/dl Peritoneal Albumin g/dl Acetaminophen Ethyl Alcohol mg/dL (0-3) mg/dl Hepatitis A IgM Ab (NON-REACTIVE) Hep Bs Antigen (Neg) Hep B Core IgM Ab (NON-REACTIVE) Hepatitis C Antibody (Neg) Imaging Data Radiologist's Impression: Radiology results as stated below per my review and the radiologist's interpretation: CT abd pelvis IV con only CLINICAL HISTORY: 32 years-old Male presenting with abd pain, jaundice, scrotal swelling. TECHNIQUE: Multidetector CT of the abdomen and pelvis was performed after the administration of intravenous contrast. IV contrast: 120 mL of Optiray 320. One or more dose lowering techniques were used consistent with the principles of ALARA (as low as reasonably achievable), including automatic exposure control, mA or kV adjustment to individual patient size, and/or use of iterative reconstruction. COMPARISON: None. CT DOSE (mGy.cm): The estimated cumulative dose is unavailable. FINDINGS: Senior Planning Analyst topogram: Unremarkable. Lung bases: Mildly enlarged heart size. No pericardial or pleural effusion. Bandlike opacities in the lung bases greater on the right, likely atelectasis. Pulmonary arteries are enlarged relative to adjacent bronchi. Liver: Normal morphology. Density consistent with severe hepatic steatosis. No focal lesion. Patent hepatic vasculature. Biliary: No intrahepatic or extrahepatic biliary ductal dilatation. Normal gallbladder. Pancreas: Normal. Spleen: Normal. Adrenal glands: Normal. Kidneys and ureters: Normal. No hydronephrosis. Bladder: Incompletely evaluated secondary to underdistention. Pelvic organs: Prostate and seminal vesicles normal. Bowel: The appendix is not visualized. No bowel obstruction. Mild diffuse wall thickening of the small and large bowel. Peritoneal cavity: Large volume simple appearing ascites area and no layering hyperdensity within the ascites. No free intraperitoneal gas. Lymph nodes: No enlarged lymph nodes in the abdomen or pelvis. Vasculature: Aorta and IVC patent and normal in caliber. Mesenteric varices noted. Abdominal wall: Recanalization of the para umbilical vein with prominent collateral veins in the anterior abdominal wall. Anasarca. Fat and small bowel containing periumbilical hernia. Ascitic fluid also tracks into the bilateral inguinal canals greater on the left. Musculoskeletal: Normal. IMPRESSION: 1. Volume overload with large volume ascites, anasarca, and pulmonary vascular congestion. 2. Severe hepatic steatosis. 3. Portal hypertension. 4. Bibasilar atelectasis greater on the right. Electronically signed by: Julio Abbott M.D. 09/15/2018 11:[address] angio chest PE protocol CT DOSE: 1313.69 mGy.cm HISTORY: 32 years-old Male with PE. Acute shortness of breath with generalized abdominal pain and jaundice TECHNIQUE: Multiple CTA images of the chest were obtained after the intravenous administration of 215 ml Optiray 320. Coronal and sagittal MIPS were obtained from the axial data set and were submitted for review. All measurements were obtained according to NASCET criteria. A dose lowering technique was utilized adhering to the principles of ALARA. Initial scan demonstrated suboptimal contrast bolus within the pulmonary arterial tree. The study was then repeated. COMPARISON: None. FINDINGS: CTA: Mild multichamber cardiac enlargement without pericardial effusion. Thoracic aorta demonstrates no aneurysm or dissection. Patency of the imaged great vessels. The pulmonary arterial tree is opacified to the level of the lobar branches. The segmental and subsegmental branches are not well opacified. No focal filling defects identified to suggest pulmonary thromboembolic disease. Study is degraded by respiratory motion artifact. CT CHEST: Mildly heterogeneous appearance of the thyroid. No adenopathy by CT size criteria. There is no pneumothorax or pleural effusion. Mild dependent subsegmental bibasilar atelectasis. Central airways appear patent. Severe hepatic steatosis. Upper abdominal ascites noted. Small sliding-type hiatal hernia. Mild generalized body wall edema. Bones appear to be intact. Remote appearing deformity about the posterior left fourth rib. No suspicious lytic or blastic bony lesions. IMPRESSION: 1. No acute intrathoracic abnormality. 2. Suboptimal evaluation of the pulmonary arterial tree as above without evidence of central pulmonary thromboembolic disease. 3. No adenopathy or airspace consolidation typical for pneumonia. 4. Severe hepatic steatosis with upper abdominal ascites. 5. Small sliding-type hiatal hernia. The above report was generated using voice recognition software. It may contain grammatical, syntax or spelling errors. Electronically signed by: Gerson Chowdary M.D. 09/15/2018 11:18 AM US scrotum/testicle CLINICAL HISTORY: 32 years-old Male presenting with scrotal edema, testicular pain. TECHNIQUE: Real-time grayscale and color and spectral Doppler ultrasound imaging of the scrotum was performed. COMPARISON: None. FINDINGS: Right testis: Normal echogenicity and echotexture. Testis measures 4.1 x 2.6 x 2.6 cm. Normal color Doppler flow and arterial and venous waveforms in the testicular parenchyma. Subcentimeter epididymal head cyst(s), either epididymal cyst or spermatocele. No hydrocele. No varicocele. Left testis: Normal echogenicity and echotexture. Testis measures 4.0 x 2.5 x 2 point cm. Normal color Doppler flow and arterial and venous waveforms in the testicular parenchyma. Epididymal head normal. Large hydrocele present ( calculated volume 80 mL). No varicocele. Symmetric perfusion of the testes. Other: Marked scrotal wall edema diffusely. No focal fluid collection to suggest abscess. IMPRESSION: 1. No evidence of testicular torsion. 2. Nonspecific marked scrotal wall edema. 3. Large left hydrocele. Electronically signed by: Julio Abbott M.D. 09/15/2018 12:33 PM ECG Data Attestation: I personally reviewed and interpreted this ECG as follows: Indication: other (jaundice, abdominal pain) Rate (beats per minute): 105 Rhythm: sinus tachycardia Findings: + other (normal axis, prolonged QTc), + RBBB (incomplete in V2) and + T-wave inversion (V3 and V4); no ST elevation Blood Pressure Blood Pressure Findings: Normal blood pressure Blood Pressure Disposition: did not require urgent referral MDM Narrative Pt ill appearing here on presentation with significant jaundice, abdominal distention, and scrotal edema. Pt tachycardic with elevated lactic acid. UA concerning for possible infection so rocephin started after blood and urine cultures drawn. Pt started on IVF due to clinical dehydration and tachycardia and concern for possible sepsis in addition to jaundice. Pt found to have markedly abnormal lft's, leukocytosis, elevated INR consistent with liver injury. Consideration given abnormal lft's and abdominal distention for SBP, although pt not febrile. Risk of bleeding at this time and concern for stability, I did not think diagnostic paracentesis warranted at this time. Pt was made aware of all results and concerns. BP remained stable and after hyponatremia noted, IVF slowed from initial boluses. Acetaminophen level pending although I do not strongly suspect APAP toxicity. Pt admits to drinking , although not daily. No evidence of concurrent pancreatitis. Case discussed with hospitalist for additional evaluation and mgmt. We did try to contact GI to discuss the case. No return call from GI. Impression & Plan Hyperbilirubinemia, Abdominal pain, Scrotal edema, Leukocytosis, Ascites, Acute hyponatremia Discharge Plan Visit Data *Final* Discharge Date/Time: 09/15/18 14:32 Chief Complaint: Abdominal Pain Stated Complaint: JAUNDICE, ABD DISTENTION ED Provider: Isa Fried Discharge Problem: Hyperbilirubinemia, Abdominal pain, Scrotal edema, Leukocytosis, Ascites, Acute hyponatremia Patient Disposition: Admitted As Inpatient Discharge Instructions Interventions: ED Discharge Assessment Last Done: 09/15/18 14:32 The scribe's documentation has been prepared under my direction and personally reviewed by me in its entirety. I confirm that the note above accurately reflects all work, treatment, procedures, and medical decision making performed by me.
[2018-09-17] MEDS: THIAMINE HCL 100 MG TAB PO SCH (08:12)
[2018-09-17] MEDS: FOLIC ACID 1 MG TAB PO SCH (08:12)
[2018-09-17] MEDS: prednisoLONE SYRUP 15 MG/5 ML BTL PO SCH (08:12)
[2018-09-17] MEDS: cefTRIAXone SODIUM 2,000 MG in DEXTROSE 5% 50 ML IV SCH (08:14)
[2018-09-17 08:19] LABS: Eosinophils # (auto) 0.03 K/uL (0-0.5); Eosinophils % (auto) 0.3 %; Hematocrit (blood only) 31.8 % (42-52); Hemoglobin 11.3 g/dL (14.0-18.0); Immature Granulocytes # (auto) 0.03 K/uL (0.00-0.02); Immature Granulocytes % (auto) 0.3 %; Lymphocytes # (auto) 1.03 K/uL (1.2-3.4); Lymphocytes % (auto) 9.5 %; Mean Corpuscular Hgb Conc 35.5 g/dL (32-36); Mean Corpuscular Volume 95.8 fL (80-100); Mean Platelet Volume 9.4 fL (7.4-10.4); Monocytes # (auto) 1.28 K/uL (0.11-0.59); Monocytes % (auto) 11.8 %; Neutrophils % (auto) 78.1 %; Platelet Count 139 K/uL (130-400); RDW Coefficient of Variation 14.5 % (11.5-14.5); RDW Standard Deviation 50.4 fL (36.4-46.3); Red Blood Count 3.32 M/uL (4.7-6.1); White Blood Count 10.87 K/uL (4.8-10.8)
[2018-09-17 08:55] LABS: Albumin Level 2.7 gm/dl (3.4-5.0); BUN Creatinine Ratio 9.2 (10-20); Calcium 8.3 mg/dl (8.5-10.1); Creatinine Clr Calc Pharmacy 119.9 ml/min; Est GFR (African American) 127.2; Est GFR (Non-African American) 109.8
[2018-09-17 09:03] LABS: Bilirubin,Total 13.6 mg/dl (0.2-1); Globulin 2.8 gm/dl (2.5-4.0); Phosphorus 1.6 mg/dl (2.5-4.9); Total Protein 5.5 gm/dl (6.4-8.2)
[2018-09-17 09:27] LABS: Potassium 3.5 mmol/L (3.5-5.1)
[2018-09-17] MEDS ORDERED: FUROSEMIDE 40 MG in SYRINGE 0 ML IV ONE (10:00)
[2018-09-17] MEDS: POTASSIUM CHLORIDE 20 MEQ TABCR PO SCH ×2 (10:58→20:17)
[2018-09-17 13:31] LABS: INR 2.3 (0.9-1.1); Prothrombin Time 22.1 Seconds (9.0-12.0)
--- NOTE | 2018-09-17 14:11 | Gastroenterology Progress Note ---
Date of Service September 17, 2018 Assessment & Plan (1) Jaundice: (2) Ascites: (3) Edema: (4) Elevated LFTs: Pt is a 32 y/o male presented w jaundice, ascites, scrotal and leg edema. Noted to have elevated LFTs and CT evidence of severe hepatic steatosis, meseteric varices, pulmonary hypertension and vascular congestion. Denies hx of autoimmune liver disease in the family, no risk factor for viral hepatitis. Does admit to ETOH use 6-7 beers, 2-3 a week. Suspect alcoholic hepatitis. MELD 35, Maddrey Discriminant Score 72 - Monitor PT/INR, Cr, LFTs daily - Pending serologies to r/o autoimmune, hereditary liver diseases, acute viral hepatitis - 09/15 U/S paracentesis w 4L ascites removal. No signs of SBP. - May continue NAC protocol. - Prednisolone 40mg PO for suspected alcoholic hepatitis. - Lasix 40mg IV x 1 today. Monitor electrolytes and renal function. Upon DC may start low dose diuretic: Lasix 20mg daily, Spironolactone 50mg daily and we can titrate them in clinic. - Fluid restriction 2L a day, 2g Na diet - ETOH cessation; avoid hepatotoxic meds - Electrolyte correction per primary team. - Will follow along closely Supervising Physician Co-Signing Physician Notes I performed a history and physical examination of the patient, including specifically on physical exam - soft, nontender abdomen. I have discussed the patient's management with Kelsi. Please refer to the nurse practitioner's note for the documented findings and plan of care. Patient with Alcoholic hepatitis, clinically improving, Bilirubin trending down , eating well. Ascites has no SBP. Imaging with evidence of portal HTN. Recommend: Doppler sono to r/o Alan angela. Monitor LFTs and INR. Continue Prednisone. Follow up liver disease work up. Diuretics upon discharge. Follow up in GI clinic. Recall Gi if needed. Subjective Pt denies any abd pain, n/v, + BM but without rectal bleeding. Appetite good. LFTs decreasing, renal function improved. Physical Exam 2 Vital Signs (Past 24 Hours): Last Vital Signs Temp 36.7 C 09/17/18 12:11 Pulse 124 H 09/17/18 12:11 Resp 19 09/17/18 12:11 BP 129/87 09/17/18 12:11 Pulse Ox 94 09/17/18 12:11 Constitutional: + ill appearing, + thin, cooperative and comfortable Eyes: + scleral abnormality (icteric) and PERRL ENMT: external ear and nose normal, oropharynx normal Respiratory: normal respiratory effort, lungs clear to auscultation Cardiovascular: RRR, no murmur, no edema Gastrointestinal (Abdomen): Inspection/Auscultation: + abdomen distended Percussion/Palpation: abdomen soft; abdomen nontender Skin: no rashes, warm and dry + jaundice Neurologic: Motor/Sensory: no asterixis Psychiatric: A+Ox3, euthymic affect Lymphatic: + lymphedema
--- NOTE | 2018-09-17 17:32 | Ultrasound Report ---
US duplex portal hepatic veins CLINICAL HISTORY: 32 years-old Male presenting with ascites; r/o PVT, Budd Chiari. TECHNIQUE: Real-time grayscale and color and spectral Doppler ultrasound imaging of the liver was per formed. COMPARISON: 09/15/2018. FINDINGS: Liver: Markedly hyperechogenic parenchyma with obscuration of the right hemidiaphragm, likely indicat ing marked hepatic steatosis. No gross sonographic evidence of hepatic mass allowing for limited eval uation. Vasculature: Portal veins: Main portal vein with normal antegrade flow and gentle undulating waveforms. Peak veloc ity 26-33 cm/s. Right and left portal veins with normal directional flow. Hepatic arteries: Proper hepatic artery with normal parenchymal arterial waveforms. Peak systolic stormy ocity 83 cm/s. Hepatic veins: Poorly visualized, in part due to sonographic attenuation. Splenic vein: Poorly visualized due to the sonographic attenuation. IVC: Patent. Biliary: No gross intrahepatic biliary ductal dilatation. Gallbladder: Not visualized. Ascites: Small amount of ascites. Other: None. IMPRESSION: 1. Severe hepatic steatosis with patent vasculature. Sonographic attenuation results in poor visuali zation of the hepatic veins. 2. Small volume ascites. Electronically signed by: Julio Abbott M.D. 09/17/2018 5:30 PM
--- NOTE | 2018-09-17 18:13 | Hospitalist Progress Note ---
Date of Service September 17, 2018 Assessment & Plan (1) Acute hepatitis: Likely secondary to alcohol abuse LFTs were as follows AST 376, ALT 142, alk phos 238, T bili 17 Lactic acid 4.1-doubt any sepsis He received broad spectrum antibiotic with 1g Rocephin Appreciate GI input and recommendation Diagnostic and therapeutic paracentesis send fluid for culture and analysis Status post 4 L paracentesis Has been started on prednisone for alcoholic hepatitis Continue current antibiotic for possible SBP Clinically improving Remains weak and lethargy (2) Anasarca: As above Status post 4 L paracentesis No increasing abdominal distention (3) Hyperbilirubinemia: Secondary to hepatic steatosis No significant extrahepatic biliary obstruction as per the scan Bilirubin level is coming down (4) Leukocytosis: -plan as above, he is afebrile -no known infectious source at this time however will continue to cover with rocephin for /GI as possible etiology -await urine, blood and peritoneal fluid culture -Has been on ceftriaxone for possible SBP -CBC is normalized (5) Hyponatremia: -likely in setting of large volume ascites, chronic -s/p 2L IVF -check serum/urine osm, urine na -follow bmp-sodium level remains low at 125 -Sodium level is 132 today (6) Hypomagnesemia: -replace with 2g mag sulfate -repeat mag in a.m. -Hypomagnesemia is corrected (7) Elevated INR (international normalized ratio): -INR 2.5, likely in setting of liver disease -10mg mephyton given per GI -repeat INR (8) Lactic acidosis: -Lactic acid 4.1, repeat was 3 at 13:30 -likely in setting of hepatic failure but infection not entirely ruled out -await urine, blood, peritoneal cultures -continue IV antibiotic -follow lactate level -will hold on further IVF given significant volume overload (9) Prolonged Q-T interval on ECG: -avoid QT prolonging medications (10) DVT prophylaxis: -SCDS Disposition: to be determined Follow up: Pt will need established with PCP upon discharge Subjective This is a 32 year old male who has a significant pmh of congenital coarctation of aorta s/p repair and repair of R inguinal hernia who presents to [facility] ED secondary to jaundice and scrotal swelling x 7-10 days. Noted to have severe hepatic steatosis with abnormal LFTs and moderate ascites. 09/16 Patient was seen and examined in telemetry He remains generally weak but feels a little better Denies any significant pain, fever and no shortness of breath Abdominal distention is improving 09/17 Remains generally weak Feeling a little bit better Denies any increased abdominal distention, nausea or vomiting Constitutional: as per Subjective / HPI Cardiovascular: + edema; no chest pain and no lightheadedness Gastrointestinal: as per Subjective / HPI, + abdominal pain and + heartburn Integumentary: as per Subjective / HPI Physical Exam 2 Vital Signs (Past 24 Hours): Last Vital Signs Temp 36.9 C 09/17/18 15:35 Pulse 115 H 09/17/18 15:35 Resp 20 09/17/18 15:35 BP 122/80 09/17/18 15:35 Pulse Ox 95 09/17/18 15:35 Physical Exam: Lying in bed comfortable Constitutional: + ill appearing, + thin, well groomed, cooperative and comfortable Eyes: + scleral abnormality (icteric), PERRL and EOM intact bilaterally ENMT: external ear and nose normal, oropharynx normal Neck: trachea midline, no thyromegaly Respiratory: normal respiratory effort, lungs clear to auscultation normal respiratory effort; no respiratory distress and no labored breathing Auscultation: + diminished lung sounds; no crackles and no wheezes Cardiovascular: RRR, no murmur, no edema Rate/Rhythm: regular rate and regular rhythm Extremities: + pedal edema and + edema Gastrointestinal (Abdomen): normal bowel sounds, soft, nontender, no hepatosplenomegaly Inspection/Auscultation: + abdomen distended (mild) and normal bowel sounds Percussion/Palpation: + abdomen tender (Minimally tender ) and abdomen soft; no guarding Skin: no rashes, warm and dry + jaundice Neurologic: Motor/Sensory: no asterixis Psychiatric: A+Ox3, euthymic affect Lymphatic: + lymphedema (bilateral LE) Results & Data Laboratory Results Short CBC 09/17/18 Range/Units 08:05 WBC 10.87 H (4.8-10.8) K/uL Hgb 11.3 L (14.0-18.0) g/dL Hct 31.8 L (42-52) % Plt Count 139 (130-400) K/uL BMP 09/17/18 08:05 Sodium 132 L D Potassium 3.5 D Chloride 94 L Carbon Dioxide 29 BUN 9 Creatinine 0.93 D Glucose 106 H Calcium 8.3 L Liver Function 09/17/18 Range/Units 08:05 Total Bilirubin 13.6 H (0.2-1) mg/dl AST 185 H (15-37) U/L ALT 93 H (12-78) U/L Alkaline Phosphatase 148 H (45-117) U/L Albumin 2.7 L (3.4-5.0) gm/dl Medications Administered Current Inpatient Medications Al Hydrox/Mg Hydrox/Simethicone (Maalox) 30 ml PO Q6H PRN PRN Reason: Dyspepsia Stop: 10/15/18 16:36 Folic Acid (Folvite) 1 mg PO QAM [facility] Stop: 10/15/18 16:59 Last Admin: 09/17/18 08:12 Dose: 1 mg Ceftriaxone Sodium 2,000 mg/ (Dextrose) 70 mls @ 100 mls/hr IV Q24H [facility]; Protocol Stop: 09/21/18 08:59 Last Infusion: 09/17/18 08:51 Dose: Infused Lorazepam (Ativan) 1 mg PO ONE PRN; Protocol PRN Reason: EtoH Withdrawal AWSS 6-10 Magnesium Hydroxide (Milk Of Magnesia) 30 ml PO Q6H PRN PRN Reason: Constipation Stop: 10/15/18 16:36 Ondansetron HCl (Zofran) 4 mg IV Q6H PRN PRN Reason: Nausea Stop: 10/15/18 16:36 Polyethylene Glycol (Miralax Powder Packet) 17 gm PO DAILY PRN PRN Reason: Constipation Stop: 10/15/18 16:36 Potassium Chloride (Klor-Con M20) 20 meq PO BID [facility] Stop: 10/17/18 09:59 Last Admin: 09/17/18 10:58 Dose: 20 meq Prednisone (Prelone) 40 mg PO DAILY [facility] Stop: 10/16/18 08:59 Last Admin: 09/17/18 08:12 Dose: 40 mg Thiamine HCl (Vitamin B-1) 100 mg PO QAM [facility] Stop: 10/15/18 16:59 Last Admin: 09/17/18 08:12 Dose: 100 mg _ (1) Leukocytosis Leukocytosis type: unspecified Qualified Code(s): D72.829 - Elevated white blood cell count, unspecified
[2018-09-18 06:46] LABS: Basophils # (auto) 0.01 K/uL (0-0.2); Basophils % (auto) 0.1 %; Eosinophils # (auto) 0.06 K/uL (0-0.5); Eosinophils % (auto) 0.6 %; Hematocrit (blood only) 33.9 % (42-52); Hemoglobin 11.7 g/dL (14.0-18.0); Immature Granulocytes # (auto) 0.04 K/uL (0.00-0.02); Immature Granulocytes % (auto) 0.4 %; Lymphocytes # (auto) 1.36 K/uL (1.2-3.4); Lymphocytes % (auto) 12.5 %; Mean Corpuscular Hgb Conc 34.5 g/dL (32-36); Mean Platelet Volume 9.5 fL (7.4-10.4); Monocytes # (auto) 1.47 K/uL (0.11-0.59); Monocytes % (auto) 13.5 %; Neutrophils # (auto) 7.96 K/uL (1.4-6.5); Neutrophils % (auto) 72.9 %; Platelet Count 131 K/uL (130-400); RDW Coefficient of Variation 14.9 % (11.5-14.5); RDW Standard Deviation 52.1 fL (36.4-46.3); Red Blood Count 3.53 M/uL (4.7-6.1)
[2018-09-18 07:21] LABS: Albumin Globulin Ratio 0.9 (0.9-2); Albumin Level 2.7 gm/dl (3.4-5.0); BUN Creatinine Ratio 10.7 (10-20); Bilirubin,Total 12.1 mg/dl (0.2-1); Calcium 8.2 mg/dl (8.5-10.1); Creatinine Clr Calc Pharmacy 128.2 ml/min; Est GFR (African American) 134.2; Est GFR (Non-African American) 115.8; Globulin 2.9 gm/dl (2.5-4.0); Magnesium 1.6 mg/dl (1.8-2.4); Potassium 3.4 mmol/L (3.5-5.1); Total Protein 5.6 gm/dl (6.4-8.2)
[2018-09-18] MEDS: FOLIC ACID 1 MG TAB PO SCH (07:45)
[2018-09-18] MEDS: POTASSIUM CHLORIDE 20 MEQ TABCR PO SCH ×2 (07:45→21:01)
[2018-09-18] MEDS: THIAMINE HCL 100 MG TAB PO SCH (07:45)
[2018-09-18] MEDS: cefTRIAXone SODIUM 2,000 MG in DEXTROSE 5% 50 ML IV SCH (07:46)
[2018-09-18] MEDS: prednisoLONE SYRUP 15 MG/5 ML BTL PO SCH (07:46)
[2018-09-18] MEDS ORDERED: POTASSIUM CHLORIDE 20 MEQ TABCR PO ONE (10:00)
--- NOTE | 2018-09-18 16:36 | Hospitalist Progress Note ---
Date of Service September 18, 2018 Assessment & Plan (1) Acute hepatitis: Likely secondary to alcohol abuse LFTs were as follows AST 376, ALT 142, alk phos 238, T bili 17 Lactic acid 4.1-doubt any sepsis He received broad spectrum antibiotic with 1g Rocephin Appreciate GI input and recommendation Diagnostic and therapeutic paracentesis send fluid for culture and analysis Status post 4 L paracentesis Has been started on prednisone for alcoholic hepatitis Continue current antibiotic for possible SBP Clinically improving Remains weak and lethargy Denies any significant complaints except weakness (2) Anasarca: As above Status post 4 L paracentesis No increasing abdominal distention and discomfort (3) Hyperbilirubinemia: Secondary to hepatic steatosis No significant extrahepatic biliary obstruction as per the scan Bilirubin level is coming down, still remains elevated Liver functions have been improving (4) Leukocytosis: -plan as above, he is afebrile -no known infectious source at this time however will continue to cover with rocephin for /GI as possible etiology -await urine, blood and peritoneal fluid culture -Has been on ceftriaxone for possible SBP -CBC is normalized (5) Hyponatremia: -likely in setting of large volume ascites, chronic -s/p 2L IVF -check serum/urine osm, urine na -follow bmp-sodium level remains low at 125 -Sodium level remains stable at 132 (6) Hypomagnesemia: -replace with 2g mag sulfate -repeat mag in a.m. -Hypomagnesemia is corrected -Magnesium level is low again 1.6 today-we will replace with 2 g of IV magnesium -Potassium supplementation given as well (7) Elevated INR (international normalized ratio): -INR 2.5, likely in setting of liver disease -10m vitamin k given per GI -repeat INR (8) Lactic acidosis: -Lactic acid 4.1, repeat was 3 at 13:30 -likely in setting of hepatic failure but infection not entirely ruled out -await urine, blood, peritoneal cultures -continue IV antibiotic -follow lactate level -will hold on further IVF given significant volume overload (9) Prolonged Q-T interval on ECG: -avoid QT prolonging medications -QT level remains stable (10) DVT prophylaxis: -SCDS Disposition: to be determined Follow up: Pt will need established with PCP upon discharge Subjective This is a 32 year old male who has a significant pmh of congenital coarctation of aorta s/p repair and repair of R inguinal hernia who presents to [facility] ED secondary to jaundice and scrotal swelling x 7-10 days. Noted to have severe hepatic steatosis with abnormal LFTs and moderate ascites. 09/16 Patient was seen and examined in telemetry He remains generally weak but feels a little better Denies any significant pain, fever and no shortness of breath Abdominal distention is improving 09/17 Remains generally weak Feeling a little bit better Denies any increased abdominal distention, nausea or vomiting 09/18 The patient was seen and examined in presence of the parents He has been feeling reasonably better Still remains extremely weak All of the questions were answered Constitutional: as per Subjective / HPI Cardiovascular: + edema; no chest pain and no lightheadedness Gastrointestinal: as per Subjective / HPI, + abdominal pain and + heartburn Integumentary: as per Subjective / HPI Physical Exam 2 Vital Signs (Past 24 Hours): Last Vital Signs Temp 36.7 C 09/18/18 15:30 Pulse 109 H 09/18/18 15:30 Resp 19 09/18/18 15:30 BP 113/78 09/18/18 15:30 Pulse Ox 94 09/18/18 15:30 Physical Exam: Minimal distress at rest Constitutional: + ill appearing, + thin, well groomed, cooperative and comfortable Eyes: + scleral abnormality (icteric), PERRL and EOM intact bilaterally ENMT: external ear and nose normal, oropharynx normal Neck: trachea midline, no thyromegaly Respiratory: normal respiratory effort, lungs clear to auscultation normal respiratory effort; no respiratory distress and no labored breathing Auscultation: + diminished lung sounds; no crackles and no wheezes Cardiovascular: RRR, no murmur, no edema Rate/Rhythm: regular rate and regular rhythm Extremities: + pedal edema and + edema Gastrointestinal (Abdomen): normal bowel sounds, soft, nontender, no hepatosplenomegaly Inspection/Auscultation: + abdomen distended (mild) and normal bowel sounds Percussion/Palpation: + abdomen tender (Minimally tender ) and abdomen soft; no guarding Skin: no rashes, warm and dry + jaundice Neurologic: Motor/Sensory: no asterixis Psychiatric: A+Ox3, euthymic affect Lymphatic: + lymphedema (bilateral LE) Results & Data Laboratory Results Short CBC 09/18/18 Range/Units 06:34 WBC 10.90 H (4.8-10.8) K/uL Hgb 11.7 L (14.0-18.0) g/dL Hct 33.9 L (42-52) % Plt Count 131 (130-400) K/uL BMP 09/18/18 06:34 Sodium 132 L Potassium 3.4 L Chloride 95 L Carbon Dioxide 31 BUN 9 Creatinine 0.87 Glucose 85 Calcium 8.2 L Liver Function 09/18/18 Range/Units 06:34 Total Bilirubin 12.1 H (0.2-1) mg/dl AST 171 H (15-37) U/L ALT 96 H (12-78) U/L Alkaline Phosphatase 157 H (45-117) U/L Albumin 2.7 L (3.4-5.0) gm/dl Medications Administered Current Inpatient Medications Al Hydrox/Mg Hydrox/Simethicone (Maalox) 30 ml PO Q6H PRN PRN Reason: Dyspepsia Stop: 10/15/18 16:36 Folic Acid (Folvite) 1 mg PO QAM [facility] Stop: 10/15/18 16:59 Last Admin: 09/18/18 07:45 Dose: 1 mg Ceftriaxone Sodium 2,000 mg/ (Dextrose) 70 mls @ 100 mls/hr IV Q24H [facility]; Protocol Stop: 09/21/18 08:59 Last Infusion: 09/18/18 08:41 Dose: Infused Magnesium Sulfate/Dextrose (Magnesium Sulfate / D5w) 1 gm in 100 mls @ 100 mls/ hr IV Q1H [facility] Stop: 09/18/18 17:31 Lorazepam (Ativan) 1 mg PO ONE PRN; Protocol PRN Reason: EtoH Withdrawal AWSS 6-10 Magnesium Hydroxide (Milk Of Magnesia) 30 ml PO Q6H PRN PRN Reason: Constipation Stop: 10/15/18 16:36 Ondansetron HCl (Zofran) 4 mg IV Q6H PRN PRN Reason: Nausea Stop: 10/15/18 16:36 Polyethylene Glycol (Miralax Powder Packet) 17 gm PO DAILY PRN PRN Reason: Constipation Stop: 10/15/18 16:36 Potassium Chloride (Klor-Con M20) 20 meq PO BID [facility] Stop: 10/17/18 09:59 Last Admin: 09/18/18 07:45 Dose: 20 meq Prednisone (Prelone) 40 mg PO DAILY [facility] Stop: 10/16/18 08:59 Last Admin: 09/18/18 07:46 Dose: 40 mg Thiamine HCl (Vitamin B-1) 100 mg PO QAM [facility] Stop: 10/15/18 16:59 Last Admin: 09/18/18 07:45 Dose: 100 mg _ (1) Leukocytosis Leukocytosis type: unspecified Qualified Code(s): D72.829 - Elevated white blood cell count, unspecified
[2018-09-18] MEDS: MAGNESIUM SULFATE / D5W 1 GM/100 ML BAG IV SCH ×2 (17:37→18:45)
[2018-09-19 07:02] LABS: BUN Creatinine Ratio 13.8 (10-20); Calcium 8.1 mg/dl (8.5-10.1); Est GFR (African American) 137.5; Est GFR (Non-African American) 118.7; Magnesium 2.2 mg/dl (1.8-2.4); Phosphorus 1.8 mg/dl (2.5-4.9); Potassium 4.1 mmol/L (3.5-5.1)
[2018-09-19] MEDS: POTASSIUM CHLORIDE 20 MEQ TABCR PO SCH ×2 (07:57→20:57)
[2018-09-19] MEDS: FOLIC ACID 1 MG TAB PO SCH (07:57)
[2018-09-19] MEDS: THIAMINE HCL 100 MG TAB PO SCH (07:57)
[2018-09-19] MEDS: prednisoLONE SYRUP 15 MG/5 ML BTL PO SCH (07:57)
[2018-09-19] MEDS: cefTRIAXone SODIUM 2,000 MG in DEXTROSE 5% 50 ML IV SCH (08:03)
[2018-09-19] MEDS ORDERED: SODIUM PHOSPHATE 3 MMOL/1 ML 5 ML VIAL IV ONE (09:30)
[2018-09-19] MEDS ORDERED: SODIUM PHOSPHATE 30 MMOL in SODIUM CHLORIDE 0.9% 500 ML IV ONE (10:00)
--- NOTE | 2018-09-19 14:11 | Hospitalist Progress Note ---
Date of Service September 19, 2018 Assessment & Plan (1) Acute hepatitis: Likely secondary to alcohol abuse LFTs were as follows AST 376, ALT 142, alk phos 238, T bili 17 Lactic acid 4.1-doubt any sepsis He received broad spectrum antibiotic with 1g Rocephin Appreciate GI input and recommendation Diagnostic and therapeutic paracentesis send fluid for culture and analysis Status post 4 L paracentesis Has been started on prednisone for alcoholic hepatitis Continue current antibiotic for possible SBP Clinically improving Remains weak and lethargy Denies any significant complaints except weakness Remains stable with jaundice and abdominal distention LFTs are improving and will repeat tomorrow (2) Anasarca: As above Status post 4 L paracentesis No increasing abdominal distention and discomfort Has moderate ascites but nothing tense (3) Hyperbilirubinemia: Secondary to hepatic steatosis No significant extrahepatic biliary obstruction as per the scan Bilirubin level is coming down, still remains elevated Liver functions have been improving We will repeat LFTs tomorrow (4) Leukocytosis: -plan as above, he is afebrile -no known infectious source at this time however will continue to cover with rocephin for /GI as possible etiology -await urine, blood and peritoneal fluid culture -Has been on ceftriaxone for possible SBP -CBC is normalized (5) Hyponatremia: -likely in setting of large volume ascites, chronic -s/p 2L IVF -check serum/urine osm, urine na -follow bmp-sodium level remains low at 125 -Sodium level remains stable at 132 (6) Hypomagnesemia: -replace with 2g mag sulfate -repeat mag in a.m. -Hypomagnesemia is corrected -Magnesium level is low again 1.6 today-we will replace with 2 g of IV magnesium -Potassium supplementation given as well -Replace electrolytes and monitor (7) Elevated INR (international normalized ratio): -INR 2.5, likely in setting of liver disease -10m vitamin k given per GI -repeat INR (8) Lactic acidosis: -Lactic acid 4.1, repeat was 3 at 13:30 -likely in setting of hepatic failure but infection not entirely ruled out -await urine, blood, peritoneal cultures -continue IV antibiotic -follow lactate level -will hold on further IVF given significant volume overload (9) Prolonged Q-T interval on ECG: -avoid QT prolonging medications -QT level remains stable (10) DVT prophylaxis: -SCDS Disposition: to be determined Follow up: Pt will need established with PCP upon discharge We will ask for PT and OT evaluation Subjective This is a 32 year old male who has a significant pmh of congenital coarctation of aorta s/p repair and repair of R inguinal hernia who presents to [facility] ED secondary to jaundice and scrotal swelling x 7-10 days. Noted to have severe hepatic steatosis with abnormal LFTs and moderate ascites. 09/16 Patient was seen and examined in telemetry He remains generally weak but feels a little better Denies any significant pain, fever and no shortness of breath Abdominal distention is improving 09/17 Remains generally weak Feeling a little bit better Denies any increased abdominal distention, nausea or vomiting 09/18 The patient was seen and examined in presence of the parents He has been feeling reasonably better Still remains extremely weak All of the questions were answered 09/19 The patient was seen and examined in telemetry unit He remains weak and lethargic He feels that his tubing is better and the edema is better Denies any significant symptoms Constitutional: as per Subjective / HPI Cardiovascular: + edema; no chest pain and no lightheadedness Gastrointestinal: as per Subjective / HPI, + abdominal pain and + heartburn Integumentary: as per Subjective / HPI Physical Exam 2 Vital Signs (Past 24 Hours): Last Vital Signs Temp 36.8 C 09/19/18 11:02 Pulse 101 H 09/19/18 11:02 Resp 18 09/19/18 11:02 BP 110/74 09/19/18 11:02 Pulse Ox 91 09/19/18 11:02 Physical Exam: No apparent distress at rest Constitutional: + ill appearing, + thin, well groomed, cooperative and comfortable Eyes: + scleral abnormality (icteric), PERRL and EOM intact bilaterally ENMT: external ear and nose normal, oropharynx normal Neck: trachea midline, no thyromegaly Respiratory: normal respiratory effort, lungs clear to auscultation normal respiratory effort; no respiratory distress and no labored breathing Auscultation: + diminished lung sounds; no crackles and no wheezes Cardiovascular: RRR, no murmur, no edema Rate/Rhythm: regular rate and regular rhythm Extremities: + pedal edema and + edema Gastrointestinal (Abdomen): normal bowel sounds, soft, nontender, no hepatosplenomegaly Inspection/Auscultation: + abdomen distended (mild) and normal bowel sounds Percussion/Palpation: + abdomen tender (Minimally tender ) and abdomen soft; no guarding Skin: no rashes, warm and dry + jaundice Neurologic: Motor/Sensory: no asterixis Psychiatric: A+Ox3, euthymic affect Lymphatic: + lymphedema (bilateral LE) Results & Data Laboratory Results [facility] 09/19/18 06:00 Sodium 133 L Potassium 4.1 D Chloride 97 L Carbon Dioxide 30 BUN 11 Creatinine 0.82 Glucose 120 H Calcium 8.1 L Medications Administered Current Inpatient Medications Al Hydrox/Mg Hydrox/Simethicone (Maalox) 30 ml PO Q6H PRN PRN Reason: Dyspepsia Stop: 10/15/18 16:36 Folic Acid (Folvite) 1 mg PO QAM [facility] Stop: 10/15/18 16:59 Last Admin: 09/19/18 07:57 Dose: 1 mg Ceftriaxone Sodium 2,000 mg/ (Dextrose) 70 mls @ 100 mls/hr IV Q24H [facility]; Protocol Stop: 09/21/18 08:59 Last Infusion: 09/19/18 08:45 Dose: Infused Sodium Phosphate 30 mmol/ (Sodium Chloride) 510 mls @ 88 mls/hr IV NOW ONE Stop: 09/19/18 15:47 Last Admin: 09/19/18 10:07 Dose: 88 mls/hr Lorazepam (Ativan) 1 mg PO ONE PRN; Protocol PRN Reason: EtoH Withdrawal AWSS 6-10 Magnesium Hydroxide (Milk Of Magnesia) 30 ml PO Q6H PRN PRN Reason: Constipation Stop: 10/15/18 16:36 Ondansetron HCl (Zofran) 4 mg IV Q6H PRN PRN Reason: Nausea Stop: 10/15/18 16:36 Polyethylene Glycol (Miralax Powder Packet) 17 gm PO DAILY PRN PRN Reason: Constipation Stop: 10/15/18 16:36 Potassium Chloride (Klor-Con M20) 20 meq PO BID [facility] Stop: 10/17/18 09:59 Last Admin: 09/19/18 07:57 Dose: 20 meq Prednisone (Prelone) 40 mg PO DAILY [facility] Stop: 10/16/18 08:59 Last Admin: 09/19/18 07:57 Dose: 40 mg Thiamine HCl (Vitamin B-1) 100 mg PO QAM [facility] Stop: 10/15/18 16:59 Last Admin: 09/19/18 07:57 Dose: 100 mg _ (1) Leukocytosis Leukocytosis type: unspecified Qualified Code(s): D72.829 - Elevated white blood cell count, unspecified
[2018-09-19] MEDS ORDERED: TRAMADOL HCL 50 MG TABLET PO PRN (21:13)
[2018-09-20 06:41] LABS: Basophils # (auto) 0.01 K/uL (0-0.2); Basophils % (auto) 0.1 %; Eosinophils # (auto) 0.18 K/uL (0-0.5); Eosinophils % (auto) 1.4 %; Hematocrit (blood only) 31.8 % (42-52); Hemoglobin 11.3 g/dL (14.0-18.0); Immature Granulocytes % (auto) 0.8 %; Lymphocytes % (auto) 11.1 %; Mean Corpuscular Hgb Conc 35.5 g/dL (32-36); Mean Corpuscular Volume 97.2 fL (80-100); Mean Platelet Volume 9.7 fL (7.4-10.4); Monocytes # (auto) 2.36 K/uL (0.11-0.59); Monocytes % (auto) 18.7 %; Neutrophils # (auto) 8.58 K/uL (1.4-6.5); Neutrophils % (auto) 67.9 %; Platelet Count 149 K/uL (130-400); RDW Coefficient of Variation 15.5 % (11.5-14.5); RDW Standard Deviation 54.7 fL (36.4-46.3); Red Blood Count 3.27 M/uL (4.7-6.1); White Blood Count 12.63 K/uL (4.8-10.8)
[2018-09-20 06:56] LABS: INR 1.7 (0.9-1.1); Prothrombin Time 17.2 Seconds (9.0-12.0)
[2018-09-20 07:25] LABS: Albumin Globulin Ratio 0.9 (0.9-2); Albumin Level 2.5 gm/dl (3.4-5.0); BUN Creatinine Ratio 17.3 (10-20); Bilirubin,Total 7.5 mg/dl (0.2-1); Creatinine Clr Calc Pharmacy 150.7 ml/min; Est GFR (African American) 143.5; Est GFR (Non-African American) 123.8; Globulin 2.8 gm/dl (2.5-4.0); Magnesium 1.9 mg/dl (1.8-2.4); Phosphorus 3.1 mg/dl (2.5-4.9); Potassium 4.3 mmol/L (3.5-5.1); Total Protein 5.3 gm/dl (6.4-8.2)
[2018-09-20] MEDS: THIAMINE HCL 100 MG TAB PO SCH (08:46)
[2018-09-20] MEDS: FOLIC ACID 1 MG TAB PO SCH (08:46)
[2018-09-20] MEDS: prednisoLONE SYRUP 15 MG/5 ML BTL PO SCH (08:46)
[2018-09-20] MEDS: POTASSIUM CHLORIDE 20 MEQ TABCR PO SCH ×2 (08:46→20:57)
[2018-09-20] MEDS: cefTRIAXone SODIUM 2,000 MG in DEXTROSE 5% 50 ML IV SCH (08:47)
--- NOTE | 2018-09-20 17:03 | Hospitalist Progress Note ---
Date of Service September 20, 2018 Assessment & Plan (1) Acute hepatitis: Likely secondary to alcohol abuse LFTs were as follows AST 376, ALT 142, alk phos 238, T bili 17 Lactic acid 4.1-doubt any sepsis He received broad spectrum antibiotic with 1g Rocephin Appreciate GI input and recommendation Diagnostic and therapeutic paracentesis send fluid for culture and analysis Status post 4 L paracentesis Has been started on prednisone for alcoholic hepatitis Continue current antibiotic for possible SBP Remains weak and lethargy Denies any significant complaints except weakness Remains stable with jaundice and abdominal distention LFTs are improving Abdominal distention remains stable May need another paracentesis before discharge LFTs are improving and will repeat tomorrow (2) Anasarca: As above Status post 4 L paracentesis No increasing abdominal distention and discomfort Has moderate ascites but nothing tense Complains of some distention of the abdomen as of today (3) Hyperbilirubinemia: Secondary to hepatic steatosis No significant extrahepatic biliary obstruction as per the scan Bilirubin level is coming down, still remains elevated Liver functions have been improving We will repeat LFTs tomorrow LFTs are improving with bilirubin at 7.5 to (4) Leukocytosis: -plan as above, he is afebrile -no known infectious source at this time however will continue to cover with rocephin for /GI as possible etiology -await urine, blood and peritoneal fluid culture -Has been on ceftriaxone for possible SBP -CBC is normalized (5) Hyponatremia: -likely in setting of large volume ascites, chronic -s/p 2L IVF -check serum/urine osm, urine na -follow bmp-sodium level remains low at 125 -Sodium level remains stable at 132-133 (6) Hypomagnesemia: -replace with 2g mag sulfate -repeat mag in a.m. -Hypomagnesemia is corrected -Magnesium level is low again 1.6 today-we will replace with 2 g of IV magnesium -Potassium supplementation given as well -Replace electrolytes and monitor (7) Elevated INR (international normalized ratio): -INR 2.5, likely in setting of liver disease -10m vitamin k given per GI -repeat INR-1.7 (8) Lactic acidosis: -Lactic acid 4.1, repeat was 3 at 13:30 -likely in setting of hepatic failure but infection not entirely ruled out -await urine, blood, peritoneal cultures -continue IV antibiotic -follow lactate level -will hold on further IVF given significant volume overload (9) Prolonged Q-T interval on ECG: -avoid QT prolonging medications -QT level remains stable (10) DVT prophylaxis: -SCDS Disposition: to be determined Follow up: Pt will need established with PCP upon discharge We will ask for PT and OT evaluation Await further GI evaluation probable discharge tomorrow Subjective This is a 32 year old male who has a significant pmh of congenital coarctation of aorta s/p repair and repair of R inguinal hernia who presents to [facility] ED secondary to jaundice and scrotal swelling x 7-10 days. Noted to have severe hepatic steatosis with abnormal LFTs and moderate ascites. 09/16 Patient was seen and examined in telemetry He remains generally weak but feels a little better Denies any significant pain, fever and no shortness of breath Abdominal distention is improving 09/17 Remains generally weak Feeling a little bit better Denies any increased abdominal distention, nausea or vomiting 09/18 The patient was seen and examined in presence of the parents He has been feeling reasonably better Still remains extremely weak All of the questions were answered 09/19 The patient was seen and examined in telemetry unit He remains weak and lethargic He feels that his tubing is better and the edema is better Denies any significant symptoms 09/20 Patient was seen and examined in telemetry unit Complains to have some abdominal distention today Denies any other symptoms Has been getting physical therapy and doing much better Constitutional: as per Subjective / HPI Cardiovascular: + edema; no chest pain and no lightheadedness Gastrointestinal: as per Subjective / HPI, + abdominal pain and + heartburn Integumentary: as per Subjective / HPI Physical Exam 2 Vital Signs (Past 24 Hours): Last Vital Signs Temp 36.6 C 09/20/18 15:10 Pulse 105 H 09/20/18 15:10 Resp 19 09/20/18 15:10 BP 130/87 09/20/18 15:10 Pulse Ox 94 09/20/18 15:10 Physical Exam: No apparent distress at rest Constitutional: + ill appearing, + thin, well groomed, cooperative and comfortable Eyes: + scleral abnormality (icteric), PERRL and EOM intact bilaterally ENMT: external ear and nose normal, oropharynx normal Neck: trachea midline, no thyromegaly Respiratory: normal respiratory effort, lungs clear to auscultation normal respiratory effort; no respiratory distress and no labored breathing Auscultation: + diminished lung sounds; no crackles and no wheezes Cardiovascular: RRR, no murmur, no edema Rate/Rhythm: regular rate and regular rhythm Extremities: + pedal edema and + edema Gastrointestinal (Abdomen): normal bowel sounds, soft, nontender, no hepatosplenomegaly Inspection/Auscultation: + abdomen distended (mild) and normal bowel sounds Percussion/Palpation: + abdomen tender (Minimally tender ) and abdomen soft; no guarding Skin: no rashes, warm and dry + jaundice Neurologic: Motor/Sensory: no asterixis Psychiatric: A+Ox3, euthymic affect Lymphatic: + lymphedema (bilateral LE) Results & Data Laboratory Results Short CBC 09/20/18 Range/Units 06:12 WBC 12.63 H (4.8-10.8) K/uL Hgb 11.3 L (14.0-18.0) g/dL Hct 31.8 L (42-52) % Plt Count 149 (130-400) K/uL BMP 09/20/18 06:12 Sodium 133 L Potassium 4.3 Chloride 98 Carbon Dioxide 30 BUN 13 Creatinine 0.74 Glucose 81 Calcium 8.0 L Liver Function 09/20/18 Range/Units 06:12 Total Bilirubin 7.5 H (0.2-1) mg/dl AST 129 H (15-37) U/L ALT 87 H (12-78) U/L Alkaline Phosphatase 198 H (45-117) U/L Albumin 2.5 L (3.4-5.0) gm/dl Medications Administered Current Inpatient Medications Al Hydrox/Mg Hydrox/Simethicone (Maalox) 30 ml PO Q6H PRN PRN Reason: Dyspepsia Stop: 10/15/18 16:36 Folic Acid (Folvite) 1 mg PO QAM ANGEL Stop: 10/15/18 16:59 Last Admin: 09/20/18 08:46 Dose: 1 mg Ceftriaxone Sodium 2,000 mg/ (Dextrose) 70 mls @ 100 mls/hr IV Q24H ANGEL; Protocol Stop: 09/21/18 08:59 Last Infusion: 09/20/18 09:29 Dose: Infused Lorazepam (Ativan) 1 mg PO ONE PRN; Protocol PRN Reason: EtoH Withdrawal AWSS 6-10 Magnesium Hydroxide (Milk Of Magnesia) 30 ml PO Q6H PRN PRN Reason: Constipation Stop: 10/15/18 16:36 Ondansetron HCl (Zofran) 4 mg IV Q6H PRN PRN Reason: Nausea Stop: 10/15/18 16:36 Polyethylene Glycol (Miralax Powder Packet) 17 gm PO DAILY PRN PRN Reason: Constipation Stop: 10/15/18 16:36 Potassium Chloride (Klor-Con M20) 20 meq PO BID [facility] Stop: 10/17/18 09:59 Last Admin: 09/20/18 08:46 Dose: 20 meq Prednisone (Prelone) 40 mg PO DAILY [facility] Stop: 10/16/18 08:59 Last Admin: 09/20/18 08:46 Dose: 40 mg Thiamine HCl (Vitamin B-1) 100 mg PO QAM [facility] Stop: 10/15/18 16:59 Last Admin: 09/20/18 08:46 Dose: 100 mg Tramadol HCl (Ultram) 50 mg PO Q6H PRN PRN Reason: Pain Stop: 10/19/18 21:12 Last Admin: 09/19/18 21:38 Dose: 50 mg _ (1) Leukocytosis Leukocytosis type: unspecified Qualified Code(s): D72.829 - Elevated white blood cell count, unspecified
--- NOTE | 2018-09-20 21:44 | Ultrasound Report ---
ULTRASOUND RIGHT LOWER EXTREMITY VENOUS CLINICAL HISTORY: Right lower extremity edema. COMPARISON STUDY: No priors. TECHNIQUE: Real-time, grayscale, and color Doppler sonography of the deep veins of the right lower ex tremity was performed from the inguinal crease to the calf. Compression and augmentation were utilize d. FINDINGS: There is no sonographic evidence of deep venous thrombosis identified in the right lower ex tremity. The common femoral, superficial femoral, and popliteal veins are patent and normally shahla sible. The greater saphenous vein and the profunda femoris vein at the junction with the common femor al vein are clear. The visualized calf veins are patent. Soft tissue edema is noted in the right leg. IMPRESSION: There is no sonographic evidence of deep venous thrombosis identified in the right lower extremity. Electronically signed by: Kali Goodson M.D. 09/20/2018 9:43 PM
[2018-09-21 07:24] LABS: Basophils # (auto) 0.01 K/uL (0-0.2); Basophils % (auto) 0.1 %; Eosinophils # (auto) 0.16 K/uL (0-0.5); Eosinophils % (auto) 1.2 %; Hematocrit (blood only) 33.6 % (42-52); Hemoglobin 11.8 g/dL (14.0-18.0); Immature Granulocytes # (auto) 0.09 K/uL (0.00-0.02); Immature Granulocytes % (auto) 0.7 %; Lymphocytes % (auto) 11.3 %; Mean Corpuscular Hgb Conc 35.1 g/dL (32-36); Mean Corpuscular Volume 98.8 fL (80-100); Mean Platelet Volume 9.7 fL (7.4-10.4); Monocytes # (auto) 2.19 K/uL (0.11-0.59); Monocytes % (auto) 16.5 %; Neutrophils # (auto) 9.36 K/uL (1.4-6.5); Neutrophils % (auto) 70.2 %; Platelet Count 141 K/uL (130-400); RDW Standard Deviation 56.9 fL (36.4-46.3); White Blood Count 13.31 K/uL (4.8-10.8)
[2018-09-21 08:00] LABS: Albumin Level 2.4 gm/dl (3.4-5.0); BUN Creatinine Ratio 18.7 (10-20); Calcium 8.2 mg/dl (8.5-10.1); Est GFR (African American) 137.5; Est GFR (Non-African American) 118.7; Magnesium 1.8 mg/dl (1.8-2.4); Potassium 4.1 mmol/L (3.5-5.1)
[2018-09-21 08:05] LABS: Albumin Globulin Ratio 0.8 (0.9-2); Bilirubin,Total 6.9 mg/dl (0.2-1); Phosphorus 3.5 mg/dl (2.5-4.9); Total Protein 5.4 gm/dl (6.4-8.2)
[2018-09-21] MEDS: prednisoLONE SYRUP 15 MG/5 ML BTL PO SCH (08:15)
[2018-09-21] MEDS: FOLIC ACID 1 MG TAB PO SCH (08:15)
[2018-09-21] MEDS: THIAMINE HCL 100 MG TAB PO SCH (08:15)
[2018-09-21] MEDS: POTASSIUM CHLORIDE 20 MEQ TABCR PO SCH ×2 (08:15→21:04)
[2018-09-21] MEDS ORDERED: FUROSEMIDE 40 MG in SYRINGE 0 ML IV ONE (10:30)
--- NOTE | 2018-09-21 13:53 | Gastroenterology Progress Note ---
Date of Service September 21, 2018 I have seen and examined the patient. Seen by the GI team a week ago - diagnosed with alcoholic hepatitis. Imaging showing fatty liver. He is willing to stop drinking. However still with ascites- paracentesis today. Prior saag was 2.1 c/w portal hypertension likely from a liver source. Agree with tap today and continued treatment with steroids. Assessment & Plan (1) Ascites: Mr. Veras is a 32 year-old male with recent increasing intake of alcohol CT is suggestive of steatosis without obstruction or cirrhosis LFTs are consistent with alcoholic hepatitis. Ascites is large for hepatitis. Ascitic fluid analysis is consistent with portal HTN w/o Will repeat US of liver with dopplers to r/o cirrhosis and PVT. Agree with repeat paracentesis. Consider initiation of diuretics. Steroids were initiated for tx of ETOH heptitis on 09/16 (today is day #5). On day #7, could calculate LILLE to decide to continue vs. stop steroids. (Today's LILLE is 0.6 - so likely will be continuing steroids). F/u in OP setting with Dr. Silva, myself or Aleta Vazquez in 2wks. (2) Edema: (3) Jaundice: (4) Elevated LFTs: Subjective Mr.Joseph Veras is a 32 yr old male admitted for alcohol withdraw and alcoholic hepatitis. CT, US with steatosis, large ascites, no mention of obstruction, cirrhosis or PVT. Paracentesis with 4 L removed on 09/15. SAAG equals 2.1, WBC 109 thus most suggestive of portal hypertension and no evidence of SBP Pt awake, alert, oriented, some mild abdominal discomfort. Vocalizes intent not to drink alcohol and has support from family/friends. Has a job, anxious to get back to work. Does not want structured program. Constitutional: no fever, no chills, no sweats and no body aches Fatigue is much improved Respiratory: no cough, no dyspnea and no wheezing Cardiovascular: + edema (Bilateral lower leg edema); no chest pain Gastrointestinal: + abdominal pain (Uncomfortable) and + bloating; no heartburn , no nausea, no vomiting and no melena Genitourinary (Male): no dysuria Integumentary: no rash Mild jaundice Neurologic: no unsteadiness, no localized weakness and no tremor(s) Psychiatric: no depression, no irritability and no anxiety Endocrine: + fatigue; no polydipsia, no polyphagia and no polyuria Hematologic / Lymphatic: no easy bleeding, no easy bruising and no unexplained weight loss Allergy / Immunological: no throat swelling, no wheezing, no cough and no dyspnea Physical Exam 2 Vital Signs (Past 24 Hours): Last Vital Signs Temp 36.4 C L 09/21/18 12:00 Pulse 123 H 09/21/18 12:00 Resp 20 09/21/18 12:00 BP 131/90 09/21/18 12:00 Pulse Ox 96 09/21/18 12:00 Constitutional: well developed and well nourished; no acute distress and not obese Eyes: PERRL Icteric ENMT: external ear and nose normal, oropharynx normal Neck: trachea midline, no thyromegaly Respiratory: normal respiratory effort, lungs clear to auscultation Cardiovascular: RRR, no murmur, no edema Gastrointestinal (Abdomen): normal bowel sounds, soft, nontender, no hepatosplenomegaly Skin: no rashes, warm and dry Neurologic: PERRL, EOMI, accommodation nl, no face palsy, no dysarthria Psychiatric: A+Ox3, euthymic affect Lymphatic: no cervical or axillary lymphadenopathy Results & Data Diagnostic Findings VDUS 09/20 lower ext:there is no sonographic evidence of deep venous thrombosis identified in the right lower extremity. VDUS portal veins1. Severe hepatic steatosis with patent vasculature. Sonographic attenuation results in poor visualization of the hepatic veins. 2. Small volume ascites. Chest CTA 09/21/18: 1. No acute intrathoracic abnormality. 2. Suboptimal evaluation of the pulmonary arterial tree as above without evidence of central pulmonary thromboembolic disease. 3. No adenopathy or airspace consolidation typical for pneumonia. 4. Severe hepatic steatosis with upper abdominal ascites. 5. Small sliding-type hiatal hernia. Abd Pelvis CT 09/15/18 1. Volume overload with large volume ascites, anasarca, and pulmonary vascular congestion. 2. Severe hepatic steatosis. 3. Portal hypertension. 4. Bibasilar atelectasis greater on the right. _ (1) Ascites Ascites type: other type Qualified Code(s): R18.8 - Other ascites
--- NOTE | 2018-09-21 14:55 | Hospitalist Progress Note ---
Date of Service September 21, 2018 Assessment & Plan (1) Acute hepatitis: Likely secondary to alcohol abuse LFTs were as follows AST 376, ALT 142, alk phos 238, T bili 17 Lactic acid 4.1-doubt any sepsis He received broad spectrum antibiotic with 1g Rocephin Appreciate GI input and recommendation Diagnostic and therapeutic paracentesis send fluid for culture and analysis Status post 4 L paracentesis Has been started on prednisone for alcoholic hepatitis Continue current antibiotic for possible SBP Remains weak and lethargy Denies any significant complaints except weakness Remains stable with jaundice and abdominal distention LFTs are improving Abdominal distention remains stable May need another paracentesis before discharge LFTs are improving and will repeat tomorrow We will continue prednisone for now until he sees GI as an outpatient (2) Anasarca: As above Status post 4 L paracentesis No increasing abdominal distention and discomfort Has moderate ascites but nothing tense Complains of some distention of the abdomen as of today Will get 4 L paracentesis today Started 1 dose of intravenous Lasix of 40 mg today We will continue with 20 of Lasix orally and 50 of his prolactin orally on discharge (3) Hyperbilirubinemia: Secondary to hepatic steatosis No significant extrahepatic biliary obstruction as per the scan Bilirubin level is coming down, still remains elevated Liver functions have been improving We will repeat LFTs tomorrow LFTs are improving with bilirubin at 7.5 to (4) Leukocytosis: -plan as above, he is afebrile -no known infectious source at this time however will continue to cover with rocephin for /GI as possible etiology -await urine, blood and peritoneal fluid culture -Has been on ceftriaxone for possible SBP -CBC is normalized -We will discontinue intravenous antibiotic (5) Hyponatremia: -likely in setting of large volume ascites, chronic -s/p 2L IVF -check serum/urine osm, urine na -follow bmp-sodium level remains low at 125 -Sodium level remains stable at 132-133 (6) Hypomagnesemia: -replace with 2g mag sulfate -repeat mag in a.m. -Hypomagnesemia is corrected -Magnesium level is low again 1.6 today-we will replace with 2 g of IV magnesium -Potassium supplementation given as well -Replace electrolytes and monitor (7) Elevated INR (international normalized ratio): -INR 2.5, likely in setting of liver disease -10m vitamin k given per GI -repeat INR-1.7 (8) Lactic acidosis: -Lactic acid 4.1, repeat was 3 at 13:30 -likely in setting of hepatic failure but infection not entirely ruled out -await urine, blood, peritoneal cultures -continue IV antibiotic -follow lactate level -will hold on further IVF given significant volume overload (9) Prolonged Q-T interval on ECG: -avoid QT prolonging medications -QT level remains stable (10) DVT prophylaxis: -SCDS Disposition: to be determined Follow up: Pt will need established with PCP upon discharge We will ask for PT and OT evaluation Like to be discharged tomorrow Subjective This is a 32 year old male who has a significant pmh of congenital coarctation of aorta s/p repair and repair of R inguinal hernia who presents to [facility] ED secondary to jaundice and scrotal swelling x 7-10 days. Noted to have severe hepatic steatosis with abnormal LFTs and moderate ascites. 09/16 Patient was seen and examined in telemetry He remains generally weak but feels a little better Denies any significant pain, fever and no shortness of breath Abdominal distention is improving 09/17 Remains generally weak Feeling a little bit better Denies any increased abdominal distention, nausea or vomiting 09/18 The patient was seen and examined in presence of the parents He has been feeling reasonably better Still remains extremely weak All of the questions were answered 09/19 The patient was seen and examined in telemetry unit He remains weak and lethargic He feels that his tubing is better and the edema is better Denies any significant symptoms 09/20 Patient was seen and examined in telemetry unit Complains to have some abdominal distention today Denies any other symptoms Has been getting physical therapy and doing much better 09/21 Complains to have more distention of the abdomen and also more swelling of the legs right more than the left Ultrasound did not show any DVT Will have paracentesis today Constitutional: as per Subjective / HPI Cardiovascular: + edema; no chest pain and no lightheadedness Gastrointestinal: as per Subjective / HPI, + abdominal pain and + heartburn Integumentary: as per Subjective / HPI Physical Exam 2 Vital Signs (Past 24 Hours): Last Vital Signs Temp 36.4 C L 09/21/18 12:00 Pulse 123 H 09/21/18 12:00 Resp 20 09/21/18 12:00 BP 131/90 09/21/18 12:00 Pulse Ox 96 09/21/18 12:00 Physical Exam: Minimal distress at rest Constitutional: + ill appearing, + thin, well groomed, cooperative and comfortable Eyes: + scleral abnormality (icteric), PERRL and EOM intact bilaterally ENMT: external ear and nose normal, oropharynx normal Neck: trachea midline, no thyromegaly Respiratory: normal respiratory effort, lungs clear to auscultation normal respiratory effort; no respiratory distress and no labored breathing Auscultation: + diminished lung sounds; no crackles and no wheezes Cardiovascular: RRR, no murmur, no edema Rate/Rhythm: regular rate and regular rhythm Extremities: + pedal edema and + edema Gastrointestinal (Abdomen): normal bowel sounds, soft, nontender, no hepatosplenomegaly Inspection/Auscultation: + abdomen distended (Moderate distention) and normal bowel sounds Percussion/Palpation: + abdomen tender ( Minimally tender) and + abdomen firm; no guarding Musculoskeletal: Bilateral leg edema-2+, right more more than left Skin: no rashes, warm and dry + jaundice Neurologic: Motor/Sensory: no asterixis Psychiatric: A+Ox3, euthymic affect Lymphatic: + lymphedema (bilateral LE) Results & Data Laboratory Results Short CBC 09/21/18 Range/Units 06:37 WBC 13.31 H (4.8-10.8) K/uL Hgb 11.8 L (14.0-18.0) g/dL Hct 33.6 L (42-52) % Plt Count 141 (130-400) K/uL BMP 09/21/18 06:37 Sodium 132 L Potassium 4.1 Chloride 98 Carbon Dioxide 29 BUN 15 Creatinine 0.82 Glucose 117 H Calcium 8.2 L Liver Function 09/21/18 Range/Units 06:37 Total Bilirubin 6.9 H (0.2-1) mg/dl AST 119 H (15-37) U/L ALT 86 H (12-78) U/L Alkaline Phosphatase 183 H (45-117) U/L Albumin 2.4 L (3.4-5.0) gm/dl Medications Administered Current Inpatient Medications Al Hydrox/Mg Hydrox/Simethicone (Maalox) 30 ml PO Q6H PRN PRN Reason: Dyspepsia Stop: 10/15/18 16:36 Folic Acid (Folvite) 1 mg PO QAM ANGEL Stop: 10/15/18 16:59 Last Admin: 09/21/18 08:15 Dose: 1 mg Lorazepam (Ativan) 1 mg PO ONE PRN; Protocol PRN Reason: EtoH Withdrawal AWSS 6-10 Magnesium Hydroxide (Milk Of Magnesia) 30 ml PO Q6H PRN PRN Reason: Constipation Stop: 10/15/18 16:36 Ondansetron HCl (Zofran) 4 mg IV Q6H PRN PRN Reason: Nausea Stop: 10/15/18 16:36 Polyethylene Glycol (Miralax Powder Packet) 17 gm PO DAILY PRN PRN Reason: Constipation Stop: 10/15/18 16:36 Potassium Chloride (Klor-Con M20) 20 meq PO BID ANGEL Stop: 10/17/18 09:59 Last Admin: 09/21/18 08:15 Dose: 20 meq Prednisone (Prelone) 40 mg PO DAILY ANGEL Stop: 10/16/18 08:59 Last Admin: 09/21/18 08:15 Dose: 40 mg Thiamine HCl (Vitamin B-1) 100 mg PO QAM ANGEL Stop: 10/15/18 16:59 Last Admin: 09/21/18 08:15 Dose: 100 mg Tramadol HCl (Ultram) 50 mg PO Q6H PRN PRN Reason: Pain Stop: 10/19/18 21:12 Last Admin: 09/19/18 21:38 Dose: 50 mg _ (1) Leukocytosis Leukocytosis type: unspecified Qualified Code(s): D72.829 - Elevated white blood cell count, unspecified
--- NOTE | 2018-09-21 15:21 | Ultrasound Report ---
ABDOMINAL ULTRASOUND, RIGHT UPPER QUADRANT HISTORY: large ascites, repeat for ? cirrhosis, PVT. COMPARISON: CT of the abdomen and pelvis September 15, 2018. FINDINGS: Please note that the Doppler portion of the study will be reported separately. Hepatic echo genicity is mildly increased. Small amount of ascites is noted. No hepatic lesions are identified alt fina sensitivity is diminished given suboptimal penetration. There is coarsening of hepatic echotext ure. There is no biliary ductal dilatation. The gallbladder is contracted. There is sludge within the gallbladder. No gallstones are identified. Mild gallbladder wall thickening is a nonspecific finding . Pancreatic body is normal. Tail is slightly obscured. There is no right hydronephrosis. IMPRESSION: 1. Coarsening of hepatic echotexture which favors cirrhosis. 2. Small amount of ascites. 3. Contracted gallbladder which contains sludge. Mild gallbladder wall thickening, a nonspecific find ing. Electronically signed by: Navneet Warner M.D. 09/21/2018 3:20 PM
--- NOTE | 2018-09-21 15:24 | Ultrasound Report ---
US duplex portal hepatic veins CLINICAL HISTORY: large ascites; doppler US to r/o new PVT COMPARISON STUDY: CT of the abdomen and pelvis September 15, 2018. FINDINGS: The main, left and right portal veins are patent with appropriately directed flow. The hepa tic veins are patent. A small amount of ascites is noted. Liver is echogenic. There is coarsening of hepatic echotexture. IMPRESSION: 1. Patent major hepatic vessels with appropriately directed flow. 2. Increased hepatic echogenicity suggestive of fatty infiltration. Suspected cirrhosis. 3. Small amount of upper abdominal ascites. Electronically signed by: Navneet Warner M.D. 09/21/2018 3:23 PM
[2018-09-21 15:41] LABS: Albumin 2.3 G/DL (3.8-4.8); Alpha 1 Antitrypsin 124 MG/DL (83-199); Alpha 1 Globulin 0.2 G/DL (0.2-0.3); Alpha 2 Globulin 0.3 G/DL (0.5-0.9); Anti Nuclear Antibody Screen NEGATIVE (NEGATIVE); Beta-1-Globulin 0.1 G/DL (0.4-0.6); Beta-2-Globulin 0.6 G/DL (0.2-0.5); Ceruloplasmin 24 MG/DL (18-36); Gamma Globulin 1.4 G/DL (0.8-1.7); IgA Serum 618 mg/dL (81-463); Monoclonal Protein Band 1 DNR G/DL (NOT DETECTED); Monoclonal Protein Band 2 DNR G/DL (NOT DETECTED); Monoclonal Protein Band 3 DNR G/DL (NOT DETECTED); Smooth Muscle Antibody 1:20 TITER; Tis Trans IgA 1 U/mL (<4); Total Protein 4.9 G/DL (6.2-8.3)
[2018-09-21] MEDS: SPIRONOLACTONE 25 MG TAB PO SCH (16:18)
--- NOTE | 2018-09-22 06:32 | Ultrasound Report ---
US paracentesis abd w/image CLINICAL HISTORY: Paracentesis COMPARISON STUDY: No previous studies for comparison. PROCEDURE: The risks, benefits, and alternatives to the procedure were discussed with the patient inc luding the risk of bleeding, infection and injury to adjacent structures. The patient agreed to the procedure and informed written consent was obtained. The procedure was performed by Dr. Bradly huber a time out. Following real-time ultrasound localization, the skin was prepped and draped. Stevie huber local anesthesia with Xylocaine, the sheath paracentesis needle was inserted and approximately 4 liters of straw-colored fluid was removed by vacuum suction. The patient tolerated the procedure well and no immediate complications were evident. IMPRESSION: Ultrasound-guided paracentesis with removal of 4 liters of ascites. The above report was generated using voice recognition software. It may contain grammatical, syntax or spelling errors. Electronically signed by: Jose Luis Abdullahi M.D. 09/22/2018 6:31 AM
[2018-09-22 06:44] LABS: Eosinophils # (auto) 0.17 K/uL (0-0.5); Eosinophils % (auto) 1.2 %; Hematocrit (blood only) 35.4 % (42-52); Hemoglobin 12.2 g/dL (14.0-18.0); Immature Granulocytes % (auto) 0.7 %; Lymphocytes # (auto) 1.43 K/uL (1.2-3.4); Lymphocytes % (auto) 10.3 %; Mean Corpuscular Hgb Conc 34.5 g/dL (32-36); Mean Corpuscular Volume 99.7 fL (80-100); Mean Platelet Volume 9.7 fL (7.4-10.4); Monocytes # (auto) 2.33 K/uL (0.11-0.59); Monocytes % (auto) 16.8 %; Neutrophils # (auto) 9.82 K/uL (1.4-6.5); Platelet Count 170 K/uL (130-400); RDW Coefficient of Variation 16.5 % (11.5-14.5); RDW Standard Deviation 59.2 fL (36.4-46.3); Red Blood Count 3.55 M/uL (4.7-6.1); White Blood Count 13.85 K/uL (4.8-10.8)
[2018-09-22 07:23] LABS: Albumin Level 2.4 gm/dl (3.4-5.0); BUN Creatinine Ratio 16.5 (10-20); Creatinine Clr Calc Pharmacy 139.4 ml/min; Est GFR (African American) 138.9; Est GFR (Non-African American) 119.9; Magnesium 1.9 mg/dl (1.8-2.4); Potassium 4.3 mmol/L (3.5-5.1)
[2018-09-22 07:24] LABS: Albumin Globulin Ratio 0.8 (0.9-2); Bilirubin,Total 6.4 mg/dl (0.2-1); Globulin 3.2 gm/dl (2.5-4.0); Phosphorus 3.6 mg/dl (2.5-4.9); Total Protein 5.6 gm/dl (6.4-8.2)
[2018-09-22 08:12] VITALS: PULSE 105
[2018-09-22] MEDS: prednisoLONE SYRUP 15 MG/5 ML BTL PO SCH (08:47)
[2018-09-22] MEDS: POTASSIUM CHLORIDE 20 MEQ TABCR PO SCH (08:47)
[2018-09-22] MEDS: FOLIC ACID 1 MG TAB PO SCH (08:48)
[2018-09-22] MEDS: SPIRONOLACTONE 25 MG TAB PO SCH (08:49)
[2018-09-22] MEDS: THIAMINE HCL 100 MG TAB PO SCH (08:50)
[2018-09-22] MEDS ORDERED: FUROSEMIDE 20 MG TAB PO SCH (09:00)
[2018-09-22 11:38] VITALS: BP 117/75; TEMP 97.7; O2SAT 95
--- NOTE | 2018-09-22 12:51 | Hospitalist Progress Note ---
Date of Service September 22, 2018 Assessment & Plan (1) Acute hepatitis: Alcoholic Hepatitis Ascites S/P Paracentesis X 2 Peritoneal Culture: Negative Appreciate GI input Continue Prednisone for alcoholic hepatitis Abx discontinued LFTs improving Needs FU with GI upon discharge Low sodium diet, fluid restriction 1.5 L per day Continue diuretics Patient not interested in Alcohol rehab placement Patient willing to quit drinking (2) Anasarca: As above S/P Paracentesis Continue diuretics, low sodium and fluid restriction as above (3) Hyperbilirubinemia: Secondary to hepatic steatosis No significant extrahepatic biliary obstruction as per the scan Bilirubin levels improved Liver function slowly improving monitor (4) Leukocytosis: No obvious source of infection Cultures negative On prednisone (5) Hyponatremia: In setting of Anasarca and alochol abuse Sodium levels improved Monitor (6) Hypomagnesemia: Resolved Replace electrolytes as needed (7) Elevated INR (international normalized ratio): Elevated INR likely in setting of liver disease INR: 2.5>>>1.7 monitor (8) Lactic acidosis: Likely secondary to liver failure No obvious source of infection (9) Prolonged Q-T interval on ECG: avoid QT prolonging medications Monitor (10) DVT prophylaxis: SCDs Disposition: Patient not interested in Inpatient rehab placement Case management following Follow up: Pt will need established with PCP upon discharge; and FU with GI Subjective Patient is seen and examined at bedside States any chest pain, SOB, dizziness, abd pain No other complaints Had paracentesis yesterday Physical Exam Vital Signs (Past 24 Hours): Last Vital Signs Temp 36.5 C 09/22/18 11:37 Pulse 105 H 09/22/18 11:37 Resp 19 09/22/18 11:37 BP 117/75 09/22/18 11:37 Pulse Ox 95 09/22/18 11:37 Physical Exam: Physical Exam: Vitals signs as noted above General Appearance:Moderately built and nourished, no apparent distress Head: normocephalic, Atraumatic Eyes: normal inspection, EOMI, +Icteric Neck: supple, Trachea midline Respiratory/Chest: Decreased breath sounds, CTA Cardiovascular: S1, S2, No murmur Abdomen/GI:Soft, distended, Non tender, Bowel sounds present Extremities/Musculoskelatal:normal inspection, pedal edema Neurologic/Psych:AAOX3, grossly no focal neurological deficits Skin: warm, +Jaundice Results & Data Laboratory Results Short CBC 09/22/18 Range/Units 06:15 WBC 13.85 H (4.8-10.8) K/uL Hgb 12.2 L (14.0-18.0) g/dL Hct 35.4 L (42-52) % Plt Count 170 (130-400) K/uL BMP 09/22/18 06:15 Sodium 134 L Potassium 4.3 Chloride 99 Carbon Dioxide 30 BUN 13 Creatinine 0.80 Glucose 73 Calcium 8.0 L Liver Function 09/22/18 Range/Units 06:15 Total Bilirubin 6.4 H (0.2-1) mg/dl AST 116 H (15-37) U/L ALT 83 H (12-78) U/L Alkaline Phosphatase 233 H (45-117) U/L Albumin 2.4 L (3.4-5.0) gm/dl (1) Leukocytosis Leukocytosis type: unspecified Qualified Code(s): D72.829 - Elevated white blood cell count, unspecified
--- NOTE | 2018-09-22 13:00 | Gastroenterology Progress Note ---
Date of Service September 22, 2018 Assessment & Plan (1) Ascites: Mr. Veras is a 32 year-old male with recent increasing intake of alcohol CT is suggestive of steatosis without obstruction or cirrhosis LFTs are consistent with alcoholic hepatitis. Ascites is large for hepatitis. Ascitic fluid analysis is consistent with portal HTN and fup imaging showing cirrhosis on ultrasound. Steroids were initiated for tx of ETOH heptitis on 09/16 (today is day #6). (Yesteryay's LILLE is 0.6 - so likely will be continuing steroids). F/u in OP setting with Dr. Silva, Dr. Buchanan, or Kelsi. (2) Edema: (3) Jaundice: (4) Elevated LFTs: Pt is a 32 y/o male presented w jaundice, ascites, scrotal and leg edema. Noted to have elevated LFTs and CT evidence of severe hepatic steatosis, meseteric varices, pulmonary hypertension and vascular congestion. Denies hx of autoimmune liver disease in the family, no risk factor for viral hepatitis. Does admit to ETOH use 6-7 beers, 2-3 a week. Suspect alcoholic hepatitis. Other DDx: AIH, Ray (though bedside slit lamp exam negative, and normal ceruloplasmin) MELD 35, Maddrey Discriminant Score 72. Repeat Maddrey today is 30.3 after use fo Prednisolone. - Monitor PT/INR, Cr, LFTs daily - F/U serologies to r/o autoimmune, hereditary liver diseases, acute viral hepatitis - 09/15, 09/21: U/S paracentesis w 4L ascites removal each time. No signs of SBP. - Prednisolone 40mg PO for suspected alcoholic hepatitis to continue for 28 days then taper down. - Lasix 40 daily, Spironolactone 100mg daily - Fluid restriction 1.5L a day, 2g Na diet - ETOH cessation; avoid hepatotoxic meds. No APAP >2g day if needed. - Stable for DC home from GI standpoint. He needs close f/u from GI standpoint and we will help request for appt. Also he's self paying and will need to get established with [facility]) and help w getting medical assistance. Supervising Physician Co-Signing Physician Notes I have seen and examined the patient with RODERICK Cook. 32 yo male followed by GI service before, s/p 2 paracentesis during this admission, wtih etoh hepatitis superimposed on etoh cirrhosis presumably. He has a low meld but d/w ascites. Agree with lasix40/aldactone 100. Outpatient GI follow-up is recommended, however, understand he is self-pay. Advised he will need to avoid alcohol completely. There is chance that with avoidance of alcohol and his age, that the ascites may resolve completely in time, but would still manage with diuretic therapy for now given the amount noted on exam. GI will sign off. Subjective Pt doing well, denies any abd pain, n/v. Had 4L ascites removal per u/s guided paracentesis yesterday. LFTs coming down. Repeat liver doppler showed patent hepatic vasculature, and now possible cirrhosis. Physical Exam Vital Signs (Past 24 Hours): Last Vital Signs Temp 36.5 C 09/22/18 11:37 Pulse 105 H 09/22/18 11:37 Resp 19 09/22/18 11:37 BP 117/75 09/22/18 11:37 Pulse Ox 95 09/22/18 11:37 Constitutional: + thin, well groomed, cooperative and comfortable Eyes: + scleral abnormality (icteric ), PERRL and EOM intact bilaterally ENMT: external ear and nose normal, oropharynx normal Respiratory: normal respiratory effort, lungs clear to auscultation Cardiovascular: RRR, no murmur, no edema Gastrointestinal (Abdomen): normal bowel sounds, soft, nontender, no hepatosplenomegaly Skin: no rashes, warm and dry + jaundice Neurologic: Motor/Sensory: no asterixis Psychiatric: A+Ox3, euthymic affect Lymphatic: no lymphedema (1) Ascites Ascites type: other type Qualified Code(s): R18.8 - Other ascites
--- NOTE | 2018-09-22 14:07 | Discharge Summary ---
Date of Service September 22, 2018 Admission HPI Per Admitting Provider This is a 32 year old male who has a significant pmh of congenital coarctation of aorta s/p repair and repair of R inguinal hernia who presents to [facility] ED secondary to jaundice and scrotal swelling x 7-10 days. Patient states approx 10 days ago he noted increased swelling to scrotum, reminded him of when he had a hernia. Occassional testicular pain with swelling but no noted mass or lumps. Occasional abdominal pain, last was 1 week ago, comes and goes, diffuse, last seconds to minutes. Yesterday he was at work when co worker told him he was yellow and he should be evaluated. He has not had any change in weight, but has noticed increased abdominal distension. Denies recent f/c/s, dizziness, lightheaded, chest pain, sob, hemoptysis, cough, n/v/d, dysuria, hematuria, increased urgency/freq, melena. He denies IVDA and significant ETOH use. Drinks 2-3 x per week and drinks 3-4 reds apple dariel. No FH of liver disease or malignancy. No recent endemic travel. Admission Exam Per Admitting Provider Gen: Tall, M, lying in bed, NAD, pleasant, conversing easily, flat affect Head: Normocephalic, Atraumatic Eyes: Sclera icteric, no conjunctival injection, PERRLA, EOMI ENT: Gross hearing intact, normal pharynx, mucous membranes dry with beefy red tongue Neck: supple, no adenopathy, +hepatojugular reflux, no bruit, Resp: Clear to auscultation b/l, no wheeze, rales, rhonchi. Normal insp/exp effort, no accessory muscle use CV: Tachycardic rate, regular rhythm, 1/6 ANSON noted RUSB, no rub, gallop, or ectopy Abd: +BS x 4, +protuberant abdomen, +distended with ascities, fluid wave, caput medusa, +periumbilical hernia noted, firm, nontender Musculoskeletal: moves extremities active rom x 4, strength intact, good client care representative strength Extremities: B/L +1 pedal and pre tibial edema bilaterally, negative homans Skin: warm, moist, + petechial rash on b/l lower ext, negative turgor, cap refill < 2sec Neuro: Alert and oriented x 3, speech normal, good mood/affect, cran nerve 2-12 intact grossly : + scrotal edema, b/l hydrocele, no mass noted Principal Diagnosis Discharge Information Discharge Diagnosis Alcoholic Hepatitis Ascites Hyponatremia Lactic acidosis Discharge Goals Decrease discomfort,Increase independence,Improve nutritional statu Discharge Activity Limitations Resume your previous activity Discharge Data Allergies Allergy/AdvReac Type Severity Reaction Status Date / Time No Known Allergies Allergy Unverified 09/15/18 10:28 Consultations 09/15/18 12:08 ED Decision to Admit Stat 09/15/18 12:32 Consult Gastroenterology Routine 09/15/18 16:37 Consult Case Management - Discharge Planning Routine 09/16/18 09:16 Consult Ophthalmology Routine Procedures Performed CT ABD; 1. Volume overload with large volume ascites, anasarca, and pulmonary vascular congestion. 2. Severe hepatic steatosis. 3. Portal hypertension. 4. Bibasilar atelectasis greater on the right. CTA: 1. No acute intrathoracic abnormality. 2. Suboptimal evaluation of the pulmonary arterial tree as above without evidence of central pulmonary thromboembolic disease. 3. No adenopathy or airspace consolidation typical for pneumonia. 4. Severe hepatic steatosis with upper abdominal ascites. 5. Small sliding-type hiatal hernia. Scrotal USD: 1. No evidence of testicular torsion. 2. Nonspecific marked scrotal wall edema. 3. Large left hydrocele. Portal Vein USD: Severe hepatic steatosis with patent vasculature. Sonographic attenuation results in poor visualization of the hepatic veins. Small volume ascites. Venous Doppler: There is no sonographic evidence of deep venous thrombosis identified in the right lower extremity. Ordered Studies 09/15/18 09:48 CT abd pelvis IV con only Stat CT angio chest PE protocol Stat 09/15/18 11:41 US testicle [US scrotum/testicle] Stat 09/15/18 13:42 US paracentesis abd w/image Stat 09/17/18 15:53 US duplex portal hepatic veins Routine 09/20/18 19:48 US venous doppler LE RT Urgent 09/21/18 10:02 US paracentesis abd w/image Routine 09/21/18 13:55 US abdomen limited Routine US duplex portal hepatic veins Routine Hospital Course (1) Acute hepatitis: Alcoholic Hepatitis Ascites S/P Paracentesis X 2 Peritoneal Culture: Negative Appreciate GI input Continue Prednisone for alcoholic hepatitis Abx discontinued LFTs improving Needs FU with GI upon discharge Low sodium diet, fluid restriction 1.5 L per day Continue diuretics Patient not interested in Alcohol rehab placement Patient willing to quit drinking (2) Anasarca: As above S/P Paracentesis Continue diuretics, low sodium and fluid restriction as above (3) Hyperbilirubinemia: Secondary to hepatic steatosis No significant extrahepatic biliary obstruction as per the scan Bilirubin levels improved Liver function slowly improving monitor (4) Leukocytosis: No obvious source of infection Cultures negative On prednisone (5) Hyponatremia: In setting of Anasarca and alochol abuse Sodium levels improved Monitor (6) Hypomagnesemia: Resolved Replace electrolytes as needed (7) Elevated INR (international normalized ratio): Elevated INR likely in setting of liver disease INR: 2.5>>>1.7 monitor (8) Lactic acidosis: Likely secondary to liver failure No obvious source of infection (9) Prolonged Q-T interval on ECG: avoid QT prolonging medications Monitor (10) DVT prophylaxis: SCDs Disposition: Patient not interested in Inpatient rehab placement Case management following Follow up: Pt will need established with PCP upon discharge; and FU with GI Total Time Total Time Spent Total Time Spent (In Minutes): 45 minutes Total Time Includes: Examination of the Patient, Discharge Planning, Medication Reconciliation, Communication With Other Providers and Other Discharge Plan Discharge Items Patient Disposition: Home - Self-Care Reason For Visit: JAUNDICE,ACUTE HEPATITIS Discharge Diagnosis: Alcoholic Hepatitis Ascites Hyponatremia Lactic acidosis Discharge Goals: Decrease discomfort, Increase independence and Improve nutritional status Activity: Resume your previous activity Exercise/Sports: Gradually increase as tolerated Non-emergency contact: Primary Care Provider and Supervisor [employer] Call non-emergency contact if: you have any medication questions, your symptoms worsen, your pain is not controlled, your pain is worsening, your pain is unusual for you, your pain is concerning for you and you have a fever Diet: Heart Healthy and Low Potassium (2gm) Fluids: 1500ml (6 cups) Addtl Provider Instructions: Follow up with your Primary Care Physician Dr.Trevor Ventura on 09/13/18 at 10:55AM Follow up with your vp clinical research in 1-2 weeks Continue Prednisone 40mg daily until follow up with your vp clinical research. Further recommendationson prednisone as per your vp clinical research Quit drinking alcohol as advised Seek immediate medical attention if your symptoms reoccur or worsen Prescriptions: New spironolactone [Aldactone] 100 mg tablet 100 mg PO QAM 30 Days Qty: 30 RF: 0 furosemide 20 mg Tablet 40 mg PO QAM 30 Days Qty: 60 RF: 0 prednisone 20 mg tablet 40 mg PO DAILY 21 Days Qty: 42 RF: 0 thiamine HCl (vitamin B1) [Vitamin B-1] 100 mg Tablet 100 mg PO QAM 30 Days Qty: 30 RF: 0 folic acid 1 mg Tablet 1 mg PO QAM 30 Days Qty: 30 RF: 0 No Action No Known Home Medications RF: 0 Stand-Alone Forms: [facility] Discharge Orders: Discharge Order (Routine); Ordered 09/22/18 Ordered By: Kai Prasad Admission Data Admit Date/Time: 09/15/18 13:15 Attending Provider: Kai Prasad Admit Provider: Kai Prasad Primary Care Provider: PCP,NO Other Providers: Kai Prasad ; Eduardo Silva ; Ok Parra ; Sathya Sorensen ; Anabela Orantes Service: Telemetry Other Interventions: Discharge Summary Assessment (RN) Last Done: 09/22/18 14:11 Pending Studies at Discharge: No DC Date/Time DO NOT enter until pt leaves facility: 09/22/18 15:26
[2018-09-23] MEDS ORDERED: SPIRONOLACTONE 25 MG TAB PO SCH (09:00)
[2018-09-23] MEDS ORDERED: FUROSEMIDE 20 MG TAB PO SCH (09:00)
== END 2018-09-22 15:26 | disposition home or self-care (01) | DRG 433 ==
LOC: ED 09:07 → 4W 13:15 → SUATTDRO 13:15 → 4W 14:32 → 2S 09-16 00:44